=== PATIENT | female | born 1975 | race Caucasian/White ===

== ENCOUNTER 2019-10-03 12:57 | Outpatient (CLI) | payer BC, SELFPAY ==
--- NOTE | 2019-10-08 13:34 | WPDPFTINT ---
PFT Interpretation PFT Interpretation: DOS: 10/03/2019 REQUESTING: Timothy Strange MD REASON FOR TESTING: Asthma PULMONARY FUNCTION TESTS Results are reproducible. Spirometry: FEV1 is 110%, FVC 104%, and FEV1% is 81%, all normal. PGV83-82% is 100%. There is no significant change with bronchodilator. Lung volumes: tlc 101%. RV 88%. Normal RV/TLC. Airway resistance is 69%. Diffusion: DLCO is 84%, normal. Flow volume loop: Normal. IMPRESSION: Normal study. Lack of response to bronchodilator does not preclude use if clinically indicated. Carli Alfredo MD
== END 2019-10-03 12:58 | disposition home or self-care (01) ==
PROVIDERS: PCP Family Medicine; Visit Provider Allergy & Immunology
DX: J45.909 Unspecified asthma, uncomplicated (principal)
CPT/HCPCS: 94060; 94726; 94729

== ENCOUNTER 2021-08-01 08:34 | Outpatient (CLI) | payer OTHER, SELFPAY ==
[2021-08-01 10:20] LABS: Alanine Aminotransferase 15 U/L (4-35); Albumin Level 4.6 g/dL (3.5-5.1); Alkaline Phosphatase 70 U/L (38-126); Anion Gap 8 mmol/L (8-16); Aspartate Amino Transferase 24 U/L (14-36); Bilirubin,Total 0.4 mg/dL (0.2-1.3); Blood Urea Nitrogen 19 mg/dL (7-17); Calcium 9.3 mg/dL (8.4-10.2); Carbon Dioxide 27 mmol/L (22-30); Chloride 104 mmol/L (98-107); Cholesterol 188 mg/dL (0-200); Estimated Glomerular Filt Rate > 60; Glucose 78 mg/dL (65-110); HDL Direct 76 mg/dL; Potassium 3.8 mmol/L (3.4-5.0); Sodium 139 mmol/L (137-145); Triglycerides 104 mg/dL (<150)
[2021-08-01 10:31] LABS: LDL Cholesterol Direct 70 mg/dL
[2021-08-01 10:53] LABS: Free T4 Free Thyroxine 1.16 ng/mL (0.78-2.19)
[2021-08-01 11:26] LABS: Folic Acid 11.2 ng/mL (2.76->20)
[2021-08-04 13:45] LABS: Triiodothyronine T3 Free 2.8 pg/mL (2.3-4.2)
== END 2021-08-01 08:35 | disposition home or self-care (01) ==
LOC: ANHLAB 08:36
PROVIDERS: Visit Provider Internal Medicine Endocrinology, Diabetes & Metabolism
DX: E03.9 Hypothyroidism, unspecified (principal); E53.8 Deficiency of other specified B group vitamins
CPT/HCPCS: 36415; 80053; 80061; 82607; 82746; 84439; 84443; 84481

== ENCOUNTER 2021-11-06 09:53 | Emergency (ER) | payer OTHER, SELFPAY ==
[2021-11-06 10:11] VITALS: BP 122/91; PULSE 70; RESP 16; TEMP 36.6; O2SAT 100
--- NOTE | 2021-11-06 10:15 | ED.URI ---
HPI - URI/Sore Throat General Chief Complaint: Upper Respiratory Infection Stated Complaint: congestion, shortness of breath,fever Time Seen by Provider: 11/06/21 10:16 Source: patient and RN notes reviewed Mode of arrival: ambulatory Limitations: no limitations History of Present Illness HPI Narrative: 45-year-old female presented for complaint of sore throat for 2 weeks, and the last 2 days she has felt sinus congestion, pressure, headache, fatigue and fever of 101 yesterday. 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 She denies shortness of breath, wheezing, nausea, vomiting, diarrhea. She is taken Sudafed and Tylenol for symptoms. MD elicited complaint: cough Related Data Home Medications Medication Instructions Recorded Confirmed drospirenone (contraceptive) 4 mg 1 tablet PO DAILY 10/23/21 (28) tablet (Slynd) fexofenadine 60 mg tablet (Rita 60 mg PO Q12H 10/23/21 Allergy) mecobalamin (vitamin B12) 10,000 mcg IM 10/23/21 mcg solution for injection sertraline 100 mg tablet 100 mg PO DAILY 10/23/21 levothyroxine 50 mcg capsule mcg PO 11/06/21 (Tirosint) metronidazole 0.75 % vaginal gel ea vaginal DAILY 11/06/21 Allergies Allergy/AdvReac Type Severity Reaction Status Date / Time tramadol [[facility] Allergy Intermediate Rash Verified 11/06/21 10:20 levofloxacin AdvReac Intermediate Unknown Verified 11/06/21 10:20 lortab AdvReac Intermediate Unknown Uncoded 11/06/21 10:20 Review of Systems Review of Systems: CONSTITUTIONAL: Endorses malaise, chills, sweats, fever EYES: Denies visual changes, redness, or discharge ENT: Reports rhinorrhea, congestion, sinus pain, otalgia, sore throat CARDIOVASCULAR: Denies chest pain, palpitations, edema RESPIRATORY: Reports cough, post nasal drainage. Denies dyspnea GASTROINTESTINAL: Denies abdominal pain, nausea, vomiting, diarrhea SKIN: Denies rash or itching MUSCULOSKELETAL: Denies myalgia NEUROLOGIC: Reports headache PMFSH Past Medical History Medical History Allergies JAN positive Bilateral hand pain Generalized osteoarthritis of multiple sites Headache Hypertension Irritable bowel syndrome Thyroid disorder Surgical History Surgical History H/O bilateral oophorectomy H/O tubal ligation H/O: hysterectomy History of tonsillectomy Family History Family History Father Alcoholism Mother Depression Thyroid disorder Sibling Cerebrovascular accident Daughter Asthma Depression Grandparent Diabetes mellitus Grandparent Alcoholism Heart disease Social History Social History Smoking status: Former smoker Alcohol intake: never Exam Narrative: GENERAL: Ill-appearing, nontoxic EYES: conjunctivae clear ENT: Mucous membranes moist. TM pearly perrin with dull light reflex bilaterally; no tragal tenderness. Oropharynx normal without lesions or exudate, no drooling, no hoarseness, no trismus, uvula midline. CHEST: Clear to auscultation, breath sounds equal. No wheezing, rhonchi, rales, or stridor. HEART: Regular rate and rhythm. No murmur heard. SKIN: Warm, dry, no rash. NEURO: Alert and oriented x3. PSYCH: Normal mood and affect Course Course Emergency Course: Patient is aware of diagnosis, understands and agrees to treatment plan. Anticipatory guidance given. Patient agrees to follow-up as directed and is aware of reasons to seek care at the emergency department. Portions of this record may have been created with voice recognition software Level of Care: Express Care Visit Vital Signs Vital signs: Vital Signs Temperature 97.9 F 11/06/21 10:11 Pulse Rate 70 11/06/21 10:11 Respiratory Rate 16 11/06/21 10:11 Blood Pressure 122/91 H 11/06/21 10:11 Pulse Oxime
== END 2021-11-06 10:57 | disposition home or self-care (01) ==
PROVIDERS: Emergency Provider Nurse Practitioner Family; PCP Family Medicine
DX: J06.9 Acute upper respiratory infection, unspecified (principal); Z20.822 Contact with and (suspected) exposure to COVID-19; Z87.891 Personal history of nicotine dependence; I10 Essential (primary) hypertension; M19.90 Unspecified osteoarthritis, unspecified site; E07.9 Disorder of thyroid, unspecified
CPT/HCPCS: 87426; 99213; C9803; G0463

== ENCOUNTER 2021-11-20 12:31 | Outpatient (CLI) | payer OTHER, SELFPAY ==
--- NOTE | ~2021-11-20 | XR_ITS ---
XR foot RT standing 2V 11/20/2021 13:13 Indication: Polyarthritis Procedure: 2 views each foot COMPARISON: No prior studies for comparison. FINDINGS: Fracture, dislocation or subluxation is not identified. The soft tissues appear within norm al limits. No foreign bodies are identified. IMPRESSION: 1: No significant bone or joint abnormality. Reviewed, dictated and finalized at location A.
--- NOTE | ~2021-11-20 | XR_ITS ---
XR knee RT 3V 11/20/2021 13:13 INDICATION: Polyarthritis PROCEDURE: 3 views right knee COMPARISON: No prior studies for comparison. FINDINGS: Fracture, dislocation or subluxation is not identified. No significant joint effusion. The soft tissues appear within normal limits. No foreign bodies are identified. IMPRESSION: 1: No significant bone or joint abnormality. Reviewed, dictated and finalized at location A.
--- NOTE | ~2021-11-20 | XR_ITS ---
XR foot LT standing 2V 11/20/2021 13:13 Indication: Polyarthralgias Procedure: 2 views left foot Comparison: No prior studies for comparison. Findings: No fracture, subluxation or dislocation. No significant soft tissue abnormality. Lisfranc j oint intact. No foreign bodies. Impression: 1: No significant bone or joint abnormality. Reviewed, dictated and finalized at location A. Impression: 1: No significant bone or joint abnormality.
--- NOTE | ~2021-11-20 | XR_ITS ---
XR knee LT 3V 11/20/2021 13:13 INDICATION: Left knee pain PROCEDURE: 3 views left knee COMPARISON: No prior studies for comparison. FINDINGS: Fracture, dislocation or subluxation is not identified. No significant joint effusion. The soft tissues appear within normal limits. No foreign bodies are identified. IMPRESSION: 1: NO ACUTE BONE OR JOINT ABNORMALITY IDENTIFIED. Reviewed, dictated and finalized at location A.
--- NOTE | ~2021-11-20 | XR_ITS ---
XR sacroiliac joints min 3V 11/20/2021 13:13 Indication: Polyarthritis Procedure: 3 view sacroiliac joints COMPARISON: No prior studies for comparison. FINDINGS: Fracture, dislocation or subluxation is not identified. There is mild bilateral symmetric o steoarthritis of the sacroiliac joints. No significant joint effusion. The soft tissues appear within normal limits. No foreign bodies are identified. 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 Reviewed, dictated and finalized at location A.
--- NOTE | ~2021-11-20 | XR_ITS ---
XR hand BI arthritis min 3V 11/20/2021 13:12 Indication: Polyarthritis Procedure: 4 views each hand COMPARISON: No prior studies for comparison. FINDINGS: Fracture, dislocation or subluxation is not identified. The soft tissues appear within norm al limits. No foreign bodies are identified. IMPRESSION: 1: No significant bone or joint abnormality. Reviewed, dictated and finalized at location A.
== END 2021-11-20 12:32 | disposition home or self-care (01) ==
PROVIDERS: PCP Family Medicine; Visit Provider Internal Medicine
DX: M79.641 Pain in right hand (principal); M79.642 Pain in left hand; R76.8 Other specified abnormal immunological findings in serum; Z79.899 Other long term (current) drug therapy; Z71.89 Other specified counseling; M15.9 Polyosteoarthritis, unspecified; M53.3 Sacrococcygeal disorders, not elsewhere classified
CPT/HCPCS: 72202; 73130; 73562; 73620

== ENCOUNTER 2021-12-19 09:42 | Outpatient (CLI) | payer OTHER, SELFPAY ==
[2021-12-19 10:54] LABS: CRP < 0.5 mg/dL (<1.0)
[2021-12-19 11:29] LABS: Erythrocyte Sedimentation Rate 11 mm/hr (0-20)
[2021-12-19 11:51] LABS: Rheumatoid Factor < 8.6 IU/ML (<12)
[2021-12-19 12:11] LABS: Complement C3 122 mg/dL (88-165)
[2021-12-23 22:03] LABS: SS-A <1.0; SS-B <1.0
== END 2021-12-19 09:43 | disposition home or self-care (01) ==
LOC: ANHLAB 09:44
PROVIDERS: PCP Family Medicine; Visit Provider Internal Medicine
DX: M79.641 Pain in right hand (principal); M79.642 Pain in left hand; R76.8 Other specified abnormal immunological findings in serum; Z71.89 Other specified counseling; Z79.899 Other long term (current) drug therapy; M19.90 Unspecified osteoarthritis, unspecified site
CPT/HCPCS: 36415; 85652; 86140; 86160; 86235; 86430

== ENCOUNTER 2022-01-15 12:16 | Outpatient (CLI) | payer OTHER, SELFPAY ==
[2022-01-15 12:50] LABS: Basophils Percent Auto 0.4 % (0.2-1.2); Eosinophils Absolute Auto 0.1 K/mm3 (0-0.3); Eosinophils Percent Auto 1.9 % (0-4.4); Hematocrit 37.1 % (37.0-47.0); Hemoglobin 11.9 g/dL (12.0-15.0); Immature Granulocyte Absolute 0.02 K/mm3 (0.00-0.031); Immature Granulocyte Percent A 0.3 % (0-0.5); Lymphocytes Absolute Auto 1.78 K/mm3 (0.9-3.2); Lymphocytes Percent Auto 25.9 % (18.3-44.2); Mean Corpuscular HGB Conc 32.1 g/dl (32-36); Mean Corpuscular Hemoglobin 27.8 pg (26-34); Mean Corpuscular Volume 86.7 fl (80-100); Mean Platelet Volume 10.1 fl (7.4-10.4); Monocytes Absolute Auto 0.5 K/mm3 (0.1-0.6); Monocytes Percent Auto 7.7 % (2.6-8.5); Neutrophils Absolute Auto 4.4 K/mm3 (1.3-6.7); Neutrophils Percent Auto 63.8 % (45.5-73.1); Platelet Count Result 242 k/mm3 (150-375); Red Blood Count 4.28 M/mm3 (4.2-5.4); Red Cell Distribution Width 12.5 % (11.5-14.5); White Blood Count 6.9 K/mm3 (4.5-10.0)
[2022-01-15 13:10] LABS: Alanine Aminotransferase 15 U/L (6-35); Albumin Level 4.5 g/dL (3.5-5.1); Alkaline Phosphatase 66 U/L (38-126); Anion Gap 11 mmol/L (8-16); Aspartate Amino Transferase 24 U/L (14-36); Bilirubin,Total 0.3 mg/dL (0.2-1.3); Blood Urea Nitrogen 15 mg/dL (7-17); Calcium 8.9 mg/dL (8.4-10.2); Carbon Dioxide 25 mmol/L (22-30); Chloride 102 mmol/L (98-107); Estimated Glomerular Filt Rate > 60; Glucose 96 mg/dL (65-110); Potassium 3.6 mmol/L (3.4-5.0); Sodium 138 mmol/L (137-145)
[2022-01-15 16:29] LABS: Free T4 Free Thyroxine 1.21 ng/mL (0.78-2.19); Vitamin D 25 Hydroxy 51.9 ng/mL
[2022-01-17 15:20] LABS: FSH 2.6 mIU/mL (***)
[2022-01-18 04:35] LABS: Sex Hormone Binding Globulin 148 nmol/L (17-124); Thyroid Peroxidase Antibodies 35 IU/mL (<9)
[2022-01-22 22:12] LABS: Estradiol, Ultrasensitive 52 pg/mL
== END 2022-01-15 12:17 | disposition home or self-care (01) ==
PROVIDERS: PCP Family Medicine; Visit Provider Obstetrics & Gynecology
DX: E07.9 Disorder of thyroid, unspecified (principal); N95.1 Menopausal and female climacteric states; G47.00 Insomnia, unspecified
CPT/HCPCS: 36415; 80053; 82306; 82607; 82670; 83001; 84270; 84439; 84443; 85025; 86376

== ENCOUNTER 2022-01-25 17:23 | Outpatient (CLI) | payer OTHER, SELFPAY ==
[2022-01-27 12:55] LABS: Triiodothyronine T3 Free 2.6 pg/mL (2.3-4.2)
== END 2022-01-25 17:24 | disposition home or self-care (01) ==
LOC: ANHLAB 17:25
PROVIDERS: PCP Family Medicine; Visit Provider Obstetrics & Gynecology
DX: E07.9 Disorder of thyroid, unspecified (principal); G47.00 Insomnia, unspecified; N95.1 Menopausal and female climacteric states
CPT/HCPCS: 36415; 84481

== ENCOUNTER 2022-03-05 12:22 | Outpatient (CLI) | payer OTHER, SELFPAY ==
[2022-03-10 11:47] LABS: Testosterone Total 271 ng/dL (2-45)
[2022-03-10 20:54] LABS: FSH 38.9 mIU/mL (***)
[2022-03-13 21:27] LABS: Estradiol, Ultrasensitive 48 pg/mL
== END 2022-03-05 12:23 | disposition home or self-care (01) ==
LOC: ANHLAB 12:23
PROVIDERS: PCP Family Medicine; Visit Provider Obstetrics & Gynecology
DX: Z79.890 Hormone replacement therapy (principal)
CPT/HCPCS: 36415; 82670; 83001; 84403

== ENCOUNTER 2022-03-27 13:08 | Outpatient (CLI) | payer OTHER, SELFPAY ==
[2022-03-27 13:56] LABS: Alanine Aminotransferase 28 U/L (6-35); Alkaline Phosphatase 69 U/L (38-126); Anion Gap 9 mmol/L (8-16); Aspartate Amino Transferase 31 U/L (14-36); Bilirubin,Total 0.5 mg/dL (0.2-1.3); Blood Urea Nitrogen 16 mg/dL (7-17); Calcium 9.7 mg/dL (8.4-10.2); Carbon Dioxide 29 mmol/L (22-30); Chloride 101 mmol/L (98-107); Estimated Glomerular Filt Rate > 60; Glucose 87 mg/dL (65-110); Sodium 139 mmol/L (137-145)
[2022-03-27 14:13] LABS: Free T4 Free Thyroxine 1.15 ng/mL (0.78-2.19)
[2022-03-27 14:26] LABS: Thyroid Stimulating Hormone 0.023 uIU/mL (0.465-4.680)
[2022-03-31 11:20] LABS: CRP, High Sensitivity 3.4 mg/L (***)
[2022-03-31 11:27] LABS: T3 Reverse 12 ng/dL (8-25)
[2022-04-02 20:02] LABS: Estradiol, Ultrasensitive 133 pg/mL
== END 2022-03-27 13:09 | disposition home or self-care (01) ==
PROVIDERS: PCP Family Medicine; Visit Provider Obstetrics & Gynecology
DX: R53.83 Other fatigue (principal)
CPT/HCPCS: 36415; 80053; 82670; 82728; 83001; 84439; 84443; 84482; 86141

== ENCOUNTER 2022-07-20 15:09 | Emergency (ER) | payer OTHER, SELFPAY ==
[2022-07-20 15:11] VITALS: BP 167/92; PULSE 126; RESP 16; TEMP 36.3; O2SAT 100
[2022-07-20 15:23] LABS: Basophils Percent Auto 0.3 % (0.2-1.2); Eosinophils Percent Auto 0.4 % (0-4.4); Hematocrit 37.8 % (37.0-47.0); Hemoglobin 12.4 g/dL (12.0-15.0); Immature Granulocyte Absolute 0.02 K/mm3 (0.00-0.031); Immature Granulocyte Percent A 0.3 % (0-0.5); Lymphocytes Absolute Auto 1.72 K/mm3 (0.9-3.2); Lymphocytes Percent Auto 25.1 % (18.3-44.2); Mean Corpuscular HGB Conc 32.8 g/dl (32-36); Mean Corpuscular Hemoglobin 26.4 pg (26-34); Mean Corpuscular Volume 80.4 fl (80-100); Mean Platelet Volume 10.8 fl (7.4-10.4); Monocytes Absolute Auto 0.5 K/mm3 (0.1-0.6); Monocytes Percent Auto 7.6 % (2.6-8.5); Neutrophils Absolute Auto 4.5 K/mm3 (1.3-6.7); Neutrophils Percent Auto 66.3 % (45.5-73.1); Platelet Count Result 294 k/mm3 (150-375); Red Cell Distribution Width 14.4 % (11.5-14.5); White Blood Count 6.9 K/mm3 (4.5-10.0)
[2022-07-20 15:41] LABS: Appearance Urine Cloudy (Clear); Bacteria Urine Rare /hpf; Bilirubin Urine 1+ (Negative); Blood Urine Negative (Negative); Color Urine Dark Yellow (Yellow); Glucose Urine UA Negative (Negative); Ketones Urine 3+ mg/dL (Negative); Leukocyte Esterase Ur Negative LEU/UL (Negative); Nitrate Urine Negative (Negative); Non Pathogenic Casts 0-2; Protein Urine Trace mg/dL (Negative); RBC Urine 0-2 /hpf (0-2); Specific Grav Ur 1.024 (1.001-1.035); Squamous Epithelial Cell Urine Moderate /hpf (Few); Urobilinogen Urine 0.2 mg/dL (<2.0); WBC Urine 0-5 /hpf
[2022-07-20 15:47] LABS: Add Urine Microscopic? YES
[2022-07-20 16:24] LABS: Alanine Aminotransferase 39 U/L (6-35); Alkaline Phosphatase 79 U/L (38-126); Anion Gap 10 mmol/L (8-16); Aspartate Amino Transferase 45 U/L (14-36); Bilirubin,Total 0.6 mg/dL (0.2-1.3); Blood Urea Nitrogen 14 mg/dL (7-17); Calcium 9.6 mg/dL (8.4-10.2); Carbon Dioxide 26 mmol/L (22-30); Chloride 101 mmol/L (98-107); Estimated CRCL calculation 99 ml/min; Estimated Glomerular Filt Rate > 60; Glucose 108 mg/dL (65-110); Lipase 60 U/L (23-300); Potassium 4.8 mmol/L (3.4-5.0); Sodium 137 mmol/L (137-145)
[2022-07-20 18:06] VITALS: BP 181/93; PULSE 111; RESP 21; O2SAT 100
--- NOTE | 2022-07-20 18:13 | ED.NAVMDI ---
HPI - Nausea/Vomiting/Diarrhea General Chief complaint: Nausea/Vomiting/Diarrhea Stated complaint: n/v x 2 days Time Seen by Provider: 07/20/22 18:04 History of Present Illness HPI Narrative: Patient is a 46-year-old female with a history of RA her for evaluation of nausea, vomiting for the past 2 days. Patient states she has been unable to tolerate any p.o. and has had numerous episodes of vomiting nonbloody/nonbilious emesis. She denies any new or suspicious foods. She denies any sick contacts. She has had no fevers, abdominal pain, diarrhea, constipation. No surgeries on her abdomen. She recently started sulfasalazine for vomiting prior to onset of vomiting. Related Data Home Medications Medication Instructions Recorded Confirmed fexofenadine 60 mg tablet (Rita 60 mg PO Q12H 10/23/21 01/08/22 Allergy) mecobalamin (vitamin B12) 10,000 10,000 mcg IM WEEKLY 10/23/21 01/08/22 mcg solution for injection levothyroxine 50 mcg capsule 50 mcg PO DAILY 11/06/21 01/08/22 (Tirosint) Allergies Allergy/AdvReac Type Severity Reaction Status Date / Time tramadol [From Ultram] Allergy Intermediate Rash Verified 07/20/22 18:13 levofloxacin AdvReac Intermediate Unknown Verified 07/20/22 18:13 lortab AdvReac Intermediate Unknown Uncoded 07/20/22 18:13 Review of Systems Review of Systems: Gen.: Denies fevers or chills Eyes: Denies eye pain or visual change ENT: Denies congestion Respiratory: Denies shortness of breath or cough CV: Denies chest pain or palpitations GI: Reports nausea and vomiting denies burning, urgency, frequency or hematuria Musculoskeletal: Denies back pain or muscle pain Neuro: Denies numbness, tingling, weakness or focal weakness Skin: Denies rash Except as documented, all other systems reviewed and negative PMFSH Past Medical History Medical History Allergies JAN positive Bilateral hand pain Fatigue Generalized osteoarthritis of multiple sites Headache Hormone replacement therapy Hypertension Irritable bowel syndrome Thyroid disorder Surgical History Surgical History H/O bilateral oophorectomy H/O tubal ligation H/O: hysterectomy History of tonsillectomy Family History Family History Father Alcoholism Mother Depression Thyroid disorder Sibling Cerebrovascular accident Daughter Asthma Depression Grandparent Diabetes mellitus Grandparent Alcoholism Heart disease Social History Social History Smoking status: Former smoker Alcohol intake: never Exam Narrative: APPEARANCE: Well appearing, no pain in distress, well-nourished. Head: Normocephalic and atraumatic. EYES: PERRLA/EOMI, conjunctivae clear NOSE: No nasal drainage EARS: External ear normal in appearance THROAT: Oropharynx is clear. Mucous membranes are moist. NECK: Supple. No adenopathy, no masses. RESPIRATORY: Airway patent, respirations nonlabored. Clear to auscultation bilaterally, no rales, rhonchi, wheezing. CARDIOVASCULAR: Regular rate and rhythm without murmurs, rubs, or gallops. ABDOMINAL: Normoactive bowel sounds. Soft, nontender, nondistended. No rebound tenderness or guarding. MUSCULOSKELETAL: Extremities are warm and well-perfused. Moves all extremities well. No edema. NEURO: Normal speech. No focal neurologic deficits. SKIN: Skin is warm and dry. No rashes. PSYCHIATRIC: Normal affect/mood.. Course Vital Signs Vital signs: Vital Signs Temperature 97.4 F L 07/20/22 15:11 Pulse Rate 126 H 07/20/22 15:11 Respiratory Rate 16 07/20/22 15:11 Blood Pressure 167/92 H 07/20/22 15:11 Pulse Oximetry 100 07/20/22 15:11 Temperature 97.4 F L 07/20/22 15:11 Pulse Rate 88 07/20/22 20:52 Respiratory Rate 20 07/20/22 20:52 Blood Pressure 142/
[2022-07-20] MEDS: LACTATED RINGERS 1,000 ML 999 ML IV CONT ×2 (18:21→19:33)
[2022-07-20] MEDS: ONDANSETRON INJ 4 MG/2 ML VIAL IV PUSH (18:21)
[2022-07-20] MEDS: FAMOTIDINE 20 MG/2 ML VIAL IV PUSH (18:21)
[2022-07-20 19:06] LABS: Pregnancy On Board Control Positive; Urine Pregnancy Test Negative
[2022-07-20 19:12] LABS: SARS-CoV-2 RNA PCR Negative
[2022-07-20] MEDS: METOCLOPRAMIDE HCL INJ 10 MG/2 ML VIAL IV PUSH (20:50)
[2022-07-20] MEDS: diphenhydrAMINE HCl INJ 50 MG/ML VIAL 25 MG IV PUSH (20:50)
[2022-07-20 20:52] VITALS: BP 142/85; PULSE 88; RESP 20; O2SAT 100
== END 2022-07-20 21:00 | disposition home or self-care (01) ==
PROVIDERS: Emergency Medicine; Emergency Provider Physician Assistant; PCP Family Medicine
DX: K52.9 Noninfective gastroenteritis and colitis, unspecified (principal); Z20.822 Contact with and (suspected) exposure to COVID-19; I10 Essential (primary) hypertension; K58.9 Irritable bowel syndrome, unspecified; E07.9 Disorder of thyroid, unspecified; M06.9 Rheumatoid arthritis, unspecified; M19.90 Unspecified osteoarthritis, unspecified site; Z90.722 Acquired absence of ovaries, bilateral; Z90.710 Acquired absence of both cervix and uterus; Z87.891 Personal history of nicotine dependence
CPT/HCPCS: 36415; 80053; 81001; 81025; 83690; 85025; 96361; 96374; 96375; 99284; J1200; J2405; J2765; J7120; U0003; U0005

== ENCOUNTER 2022-07-23 15:02 | Outpatient (CLI) | payer OTHER, SELFPAY ==
--- NOTE | ~2022-07-23 | US_ITS ---
EXAMINATION: US soft tissue UE LT DATE: 07/23/2022 16:00 INDICATION: Ankylosing spondylitis of multiple sites. Rheumatoid arthritis. Left hand pain. TECHNIQUE: Multiple grayscale and Doppler ultrasound images of the left hand were obtained. COMPARISON: Left hand radiographs 11/20/2021 FINDINGS: There is a small effusion of left third metacarpophalangeal joint. No abnormal mass. IMPRESSION: 1. Small effusion of left third metacarpophalangeal joint. Reviewed, dictated and finalized at location A.
--- NOTE | ~2022-07-23 | US_ITS ---
EXAMINATION: US soft tissue UE RT DATE: 07/23/2022 16:00 INDICATION: Ankylosing spondylitis of multiple sites. Rheumatoid arthritis. Right hand pain. TECHNIQUE: Multiple grayscale and Doppler ultrasound images of the right hand were obtained. COMPARISON: Right hand radiographs 11/20/2021 FINDINGS: There is no abnormal mass or joint effusion. IMPRESSION: 1. No abnormal mass or joint effusion. Reviewed, dictated and finalized at location A.
== END 2022-07-23 15:03 | disposition home or self-care (01) ==
PROVIDERS: PCP Family Medicine; Visit Provider Internal Medicine
DX: M45.0 Ankylosing spondylitis of multiple sites in spine (principal); M45.1 Ankylosing spondylitis of occipito-atlanto-axial region; M06.09 Rheumatoid arthritis without rheumatoid factor, multiple sites; M25.442 Effusion, left hand
CPT/HCPCS: 76882

== ENCOUNTER 2022-10-04 16:49 | Outpatient (CLI) | payer OTHER, SELFPAY ==
--- NOTE | ~2022-10-04 | XR_ITS ---
XR shoulder RT min 2V 10/04/2022 17:12 Indication: Right shoulder pain Procedure: 4 views right shoulder Comparison: No prior studies for comparison. Findings: There is anatomic alignment. No fracture, subluxation or dislocation. No joint effusion. No foreign bodies. Impression: 1: No significant bone or joint abnormality. Reviewed, dictated and finalized at location L. Impression: 1: No significant bone or joint abnormality.
--- NOTE | ~2022-10-04 | XR_ITS ---
XR shoulder LT min 2V 10/04/2022 17:12 Indication: Left shoulder pain Procedure: 4 views left shoulder Comparison: No prior studies for comparison. Findings: There is anatomic alignment. No fracture, subluxation or dislocation. No joint space narrow ing. No erosive changes. No soft tissue abnormality. No foreign bodies. Impression: 1: No significant bone or joint abnormality Reviewed, dictated and finalized at location L. Impression: 1: No significant bone or joint abnormality
== END 2022-10-04 16:50 | disposition home or self-care (01) ==
LOC: ANHIMG 16:52
PROVIDERS: PCP Family Medicine; Visit Provider Orthopaedic Surgery
DX: M25.511 Pain in right shoulder (principal); M25.512 Pain in left shoulder
CPT/HCPCS: 73030

== ENCOUNTER 2022-10-30 09:39 | Outpatient (CLI) | payer OTHER, SELFPAY ==
[2022-10-30 11:05] LABS: Free T4 Free Thyroxine 1.21 ng/mL (0.78-2.19)
[2022-10-30 11:13] LABS: Thyroid Stimulating Hormone < 0.015 uIU/mL (0.465-4.680)
[2022-11-03 11:06] LABS: Testosterone Free 26.8 pg/mL (0.1-6.4); Testosterone Total 367 ng/dL (2-45)
[2022-11-04 05:26] LABS: FSH 10.5 mIU/mL (***); Triiodothyronine T3 Free 3.4 pg/mL (2.3-4.2)
[2022-11-06 21:06] LABS: Estradiol, Ultrasensitive 140 pg/mL
== END 2022-10-30 09:40 | disposition home or self-care (01) ==
LOC: ANHLAB 09:42
PROVIDERS: PCP Family Medicine; Visit Provider Physical Medicine & Rehabilitation
DX: R53.82 Chronic fatigue, unspecified (principal); Z79.890 Hormone replacement therapy
CPT/HCPCS: 36415; 82670; 83001; 84402; 84403; 84439; 84443; 84481

== ENCOUNTER 2022-12-15 17:15 | Outpatient (RCR) | payer OTHER, SELFPAY ==
--- NOTE | 2022-11-18 17:24 | PTOPEVAL1 ---
Assessment and note entered by Da Moreno Evaluation Information Assessment Status Evaluation Diagnosis bilateral shoulder pain Subjective Information Pt. reports that her shoulder pain began 6-7 months ago. she recalls no incident just progressing pain. Pt. describes pain in the lateral brachial region of both the left and right u.e. She reports she is right hand dominant but the left hand is worse. She states that she is currently waking 4-5x/night due to pain. She cannot sleep on her side due to pain. She report dressing is painful due to shoulder pain. She reports that lifting any object will increase her shoulder pain. she describes most pain with reaching away from her body. She recalls no complication prior to the past 6-7 months. Pt. reports that she does have hx of RA and is currently taking medication for RA. she is also using mm. relaxor and gabapentin. She also has hx of Graves Disease, anxiety and depression. She reports that her goal for therapy is to decrease her pain. Reported Pain Level Pain Score 6,8: Self Report Assessment PT Clinical Summary Pt. is a 46 year old female who enters the clinic with bilateral shoulder pain. She presents with indication of impingement syndrome on both right and left and has Hx of RA. She currently presents with impaired postural awareness, pain, impaired shoulder mobility and impaired strength. Continued skilled PT is indicated in order to improve these areas to allow the pt. to be able to complete all IADL's without limitation. Plan of Care Interventions Electrical Stimulation,Hot Pack/Cold Pack,Manual Therapy,Neuro Re-education,Patient/Caregiver Educati,Therapeutic Activities,Therapeutic Exercise PT Services Indicated Yes Treatment Frequency and 2x/week x 8 visits Duration These treatments will address the objective and functional deficits as defined above. The patient will be advanced safely and appropriately in order for the patient to progress towards his/her prior level of function. Additional exercises will be introduced and as well as a comprehensive home exercise program upon discharge, if needed, ?to ensure carryover of functional gains achieved in the clinic. This treatment plan has been reviewed and agreement upon by the patient.
--- NOTE | 2022-11-18 17:25 | OPREHPOC ---
Outpatient Therapy Plan of Care This is a Multidisciplinary Plan of Care that may contain components documented by all disciplines (PT, OT, and ST.) PT Problem 1 PT Problem #1 Knowledge Deficit PT Goal 1 Goal Independent with a HEP addresisng strength and posutral awareness. Target Visit 2 PT Problem 2 PT Problem #2 Pain PT Goal 1 Goal Reduce pain to 5/10 at worst with performance of all IADL's and report improved sleep habits. Target Visit 8 PT Problem 3 PT Problem #3 Impaired Range of Motion PT Goal 1 Goal Increase bilateral flexion AROM at the shoulder joints to 160 degrees to improve ability to complete overhead ADL's including dressing and grooming. Target Visit 8 PT Problem 4 PT Problem #4 Impaired Strength PT Goal 1 Goal Pt. to demonstrate 4plus/5 bilateral shoulder strength or greater to improve postural awarness with all IADL's. Target Visit 8
--- NOTE | 2022-12-20 16:26 | PCPTNOTE ---
Pt. canceled 12/20 and 12/22 appointments as she is getting into orthopedic MD as discussed at previous session.
--- NOTE | 2022-12-22 12:42 | PTOPDC ---
Assessment and note entered by Da Moreno Evaluation Information Assessment Status Discharge - Pt Not Present Diagnosis bilateral shoulder pain Assessment PT Clinical Summary Mrs. Merrill contacted the clinic on 12/20/22 via telephone. She stated that she would like to cancel her remaining appointments and had scheduled a visit with an orthopedic doctor to address her shoulder pain. She will be discharged from our care. Refer to last pt. daily note for discharge status. Plan of Care PT Services Indicated Yes
== END 2022-12-23 14:02 | disposition home or self-care (01) ==
LOC: ANHPT 17:15
PROVIDERS: PCP Family Medicine; Visit Provider Nurse Practitioner
DX: M25.511 Pain in right shoulder (principal); M25.512 Pain in left shoulder
CPT/HCPCS: 97014; 97110; 97140; 97161; G0283

== ENCOUNTER 2023-01-14 12:12 | Outpatient (CLI) | payer OTHER, SELFPAY ==
[2023-01-14 12:46] LABS: Basophils Percent Auto 0.3 % (0.2-1.2); Eosinophils Absolute Auto 0.2 K/mm3 (0-0.3); Eosinophils Percent Auto 3.4 % (0-4.4); Hematocrit 38.9 % (37.0-47.0); Hemoglobin 12.6 g/dL (12.0-15.0); Immature Granulocyte Absolute 0.02 K/mm3 (0.00-0.031); Immature Granulocyte Percent A 0.3 % (0-0.5); Lymphocytes Absolute Auto 2.08 K/mm3 (0.9-3.2); Lymphocytes Percent Auto 35.3 % (18.3-44.2); Mean Corpuscular HGB Conc 32.4 g/dl (32-36); Mean Corpuscular Hemoglobin 27.8 pg (26-34); Mean Corpuscular Volume 85.9 fl (80-100); Mean Platelet Volume 10.5 fl (7.4-10.4); Monocytes Absolute Auto 0.5 K/mm3 (0.1-0.6); Neutrophils Percent Auto 51.7 % (45.5-73.1); Platelet Count Result 235 k/mm3 (150-375); Red Blood Count 4.53 M/mm3 (4.2-5.4); Red Cell Distribution Width 12.4 % (11.5-14.5); White Blood Count 5.9 K/mm3 (4.5-10.0)
[2023-01-14 12:50] LABS: Alanine Aminotransferase 30 U/L (6-35); Alkaline Phosphatase 87 U/L (38-126); Anion Gap 8 mmol/L (8-16); Aspartate Amino Transferase 30 U/L (14-36); Bilirubin,Total 0.4 mg/dL (0.2-1.3); Blood Urea Nitrogen 13 mg/dL (7-17); Calcium 9.3 mg/dL (8.4-10.2); Carbon Dioxide 27 mmol/L (22-30); Chloride 104 mmol/L (98-107); Cholesterol 207 mg/dL (0-200); Estimated Glomerular Filt Rate > 60; Glucose 77 mg/dL (65-110); HDL Direct 68 mg/dL; Potassium 3.8 mmol/L (3.4-5.0); Sodium 139 mmol/L (137-145); Triglycerides 139 mg/dL (<150)
[2023-01-14 13:01] LABS: LDL Cholesterol Direct 97 mg/dL
[2023-01-14 13:20] LABS: Thyroid Stimulating Hormone < 0.015 uIU/mL (0.465-4.680)
[2023-01-14 13:23] LABS: Free T4 Free Thyroxine 1.33 ng/mL (0.78-2.19); Vitamin D 25 Hydroxy 46.3 ng/mL
[2023-01-14 13:30] LABS: Iron 74 ug/dL (37-170)
[2023-01-14 13:38] LABS: Percent Iron Saturation 18 % (20-50)
[2023-01-18 18:49] LABS: Testosterone Free 13.3 pg/mL (0.1-6.4); Testosterone Total 215 ng/dL (2-45)
[2023-01-19 06:38] LABS: FSH 13.8 mIU/mL (***); Triiodothyronine T3 Free 2.9 pg/mL (2.3-4.2)
[2023-01-21 20:06] LABS: Estradiol, Ultrasensitive 98 pg/mL
== END 2023-01-14 12:13 | disposition home or self-care (01) ==
LOC: ANHLAB 12:14
PROVIDERS: PCP Family Medicine; Visit Provider Physical Medicine & Rehabilitation
DX: R53.83 Other fatigue (principal)
CPT/HCPCS: 36415; 80053; 80061; 82306; 82607; 82670; 83001; 83540; 83550; 84402; 84403; 84439; 84443; 84481; 85025

== ENCOUNTER 2023-02-10 12:24 | Outpatient (CLI) | payer OTHER, SELFPAY ==
--- NOTE | ~2023-02-10 | MR_ITS ---
MRI of the left shoulder Technique: Axial proton-density fat-sat images, coronal proton density fat-sat and T2 fat-sat images, and sagittal T1-weighted and T2 fat-sat images were acquired. Clinical History: Pain Findings: There is no significant degenerative change of the AC joint. Coracoclavicular, coracoacromi al, and coracohumeral ligaments are intact. Supraspinatus and infraspinatus tendons are intact, without partial or full-thickness tear. Subscapul renzo tendon is intact, with minimal tendinosis. Tendon of the long head of the biceps is intact. Probable superior labral tear identified. Inferior glenohumeral ligament is intact. No effusion or degenerative change of the glenohumeral join t. No fluid distention of the subacromial/subdeltoid bursa. No muscle atrophy or edema. Impression: Probable superior labral tear. Reviewed, dictated and finalized at [facility]. Impression: Probable superior labral tear.
== END 2023-02-10 12:25 | disposition home or self-care (01) ==
PROVIDERS: PCP Family Medicine; Visit Provider Nurse Practitioner
DX: M25.512 Pain in left shoulder (principal)
CPT/HCPCS: 73221

== ENCOUNTER 2023-02-11 13:39 | Outpatient (CLI) | payer OTHER, SELFPAY ==
--- NOTE | ~2023-02-11 | MM_ITS ---
EXAMINATION: MM screening [facility] BI w timothy HISTORY: Screening TECHNIQUE: Craniocaudal and mediolateral oblique 3-D tomosynthesis images were obtained and synthetic 2-D images were generated. CAD analysis was submitted and interpreted. COMPARISON: Comparison to multiple prior studies sequentially, with oldest reviewed study dated 01/24. BREAST PARENCHYMAL COMPOSITION: There are scattered areas of fibroglandular density. FINDINGS: There is no evidence of suspicious mass, calcification, or architectural distortion to sugg est malignancy in either breast. There has been no suspicious interval change. IMPRESSION: 1. No mammographic evidence of malignancy. 2. Recommend routine screening mammography in one year. BI-RADS Category 1: Negative Reviewed, dictated and finalized at location A.
== END 2023-02-11 13:40 | disposition home or self-care (01) ==
LOC: ANHIMG 13:39
PROVIDERS: PCP Family Medicine; Visit Provider Obstetrics & Gynecology
DX: Z12.31 Encounter for screening mammogram for malignant neoplasm of breast (principal)
CPT/HCPCS: 77063; 77067

== ENCOUNTER 2023-02-21 13:26 | Outpatient (CLI) | payer OTHER, SELFPAY ==
--- NOTE | ~2023-02-21 | XR_ITS ---
EXAMINATION: XR lg joint inject/asp w image DATE: 02/21/2023 14:36 INDICATION: Left shoulder pain TECHNIQUE: A time-out was performed to verify the patient's name, date of , and procedure to b e performed. The procedure including the risks, benefits, and alternatives was discussed with the pat ient. Risks discussed included bleeding and infection. The patient understood the risks and agreed to proceed. The skin overlying the rotator cuff interval of the left glenohumeral joint was prepped an d draped in usual sterile fashion. Anesthetic was administered with 1% lidocaine subcutaneously. A 22 G needle was advanced under fluoroscopic guidance into the joint. Injection of 1 mL of Omnipaque 240 confirmed intra-articular position of the needle. Subsequently, injectate consisting of 3.5 mL o f a 4:3 mixture of 1% lidocaine:10 mg/mL Kenalog for a total dosage of 15 mg Kenalog was instilled. W ashout of contrast was seen confirming intra-articular administration. The needle was removed and the entry site was cleaned and dressed. There were no immediate complications. Fluoroscopy exposure renetta e was 0.1 minutes. The total number of images was 2. FINDINGS: Real-time fluoroscopy demonstrates the needle in the left glenohumeral joint. Patient's sergio n prior to procedure:10/02. Patient's pain following the procedure: 08/02. IMPRESSION: 1. Successful left glenohumeral joint injection of local anesthetic and steroid with decrease in the patient's presenting pain. Reviewed, dictated and finalized at location A.
== END 2023-02-21 13:27 | disposition home or self-care (01) ==
PROVIDERS: PCP Family Medicine; Visit Provider Orthopaedic Surgery
DX: M25.512 Pain in left shoulder (principal)
CPT/HCPCS: 20610; 77002; J2001; J3301; Q9966

== ENCOUNTER 2023-03-24 16:23 | Outpatient (CLI) | payer OTHER, SELFPAY ==
--- NOTE | ~2023-03-24 | US_ITS ---
EXAMINATION: US thyroid DATE: 03/24/2023 17:06 INDICATION: Dysphagia TECHNIQUE: Multiple ultrasound images of the thyroid were obtained. COMPARISON: None. FINDINGS: The right thyroid lobe measures 3.7 x 0.9 x 0.9 cm. The left thyroid lobe measures 2.3 x 0.7 x 1.1 c m. Thyroid isthmus measures 1.6 mm in thickness. No discrete nodules identified. There is normal echo texture, echogenicity and vascular flow throughout the thyroid gland. IMPRESSION: 1. Normal thyroid ultrasound. Reviewed, dictated and finalized at location A. T DRIVER
== END 2023-03-24 16:24 | disposition home or self-care (01) ==
LOC: ANHIMG 16:26
PROVIDERS: PCP Family Medicine; Visit Provider Physician Assistant Medical
DX: R13.10 Dysphagia, unspecified (principal)
CPT/HCPCS: 76536

== ENCOUNTER 2023-03-25 15:30 | Outpatient (RCR) | payer OTHER, SELFPAY ==
--- NOTE | 2023-02-17 08:04 | PTOPEVAL1 ---
Assessment and note entered by Da Moreno Evaluation Information Assessment Status Evaluation Diagnosis bilateral adhesive capsulities of the shoulders Onset 05/20/22 Subjective Information Pt. reports she has experienced 10 months of bilateral shoulder pain. She underwent recent MRI that revealed a small labral tear on the left. She reports that her right shoulder has been improving recently, but the left shoulder has not gotten any better. She reports that she cannot reach behind her back and overhead with the left shoulder. She states that she currently has no pain in the right shoulder and shoulder pain is only notable with occasional overhead reaching. She has trouble attempting to lift anything away from her body. Reaching into overhead cabinets is painful and difficult. She reports trouble sleeping at night is difficult due to pain when rolling onto the left shoulder. She reports that her goal is to decrease her shoulder pain. Reported Pain Level Pain Score 2,6: Self Report Assessment PT Clinical Summary Pt. is a 47 year old female who enters the clinic with right and left shoulder adhesive capsulitis. she presents with impaired postural awareness, impaired bilateral shoulder passive and active ROM , impaired proximal u.e. strength and pain. Continued skilled PT is indicated in order to improve these areas to allow the pt. to be able to complete all IADL's with improved comfort and efficency. Plan of Care Interventions Electrical Stimulation,Hot Pack/Cold Pack,Manual Therapy,Neuro Re-education,Patient/Caregiver Educati,Therapeutic Activities,Therapeutic Exercise PT Services Indicated Yes Treatment Frequency and 2x/week x 10 visits Duration These treatments will address the objective and functional deficits as defined above. The patient will be advanced safely and appropriately in order for the patient to progress towards his/her prior level of function. Additional exercises will be introduced and as well as a comprehensive home exercise program upon discharge, if needed, ?to ensure carryover of functional gains achieved in the clinic. This treatment plan has been reviewed and agreement upon by the patient.
--- NOTE | 2023-02-17 08:05 | OPREHPOC ---
Outpatient Therapy Plan of Care This is a Multidisciplinary Plan of Care that may contain components documented by all disciplines (PT, OT, and ST.) PT Problem 1 PT Problem #1 Knowledge Deficit PT Goal 1 Goal Independent with a HEP addressing strength and mobility pentecostal. Target Visit 2 PT Problem 2 PT Problem #2 Pain PT Goal 1 Goal Reduce pain to 3/10 at worst with all overhead reaching. Target Visit 10 PT Problem 3 PT Problem #3 Impaired Range of Motion PT Goal 1 Goal -Pt. will achieve 165 degrees of bilateral active shoulder flexion -Pt. will be able to reach to the upper thoracic region with combined ER and flexion of the bilateral shoulder joints. -Pt. will reach to the lower thoracic region with combined IR and flexion of the bilateral shoulder joints. PT Problem 4 PT Problem #4 Impaired Functional Mobil PT Goal 1 Goal Pt. will improve her Quick Dash score to less than 30% limitation indicating improved comfort and function. Target Visit 10 PT Problem 5 PT Problem #5 Impaired Strength PT Goal 1 Goal Pt. will present with 4+/5 or greater gross proximal right and left u.e. strength. Target Visit 10
--- NOTE | 2023-03-16 10:23 | PCPTNOTE ---
Pt. canceled 03/16/23 appointment noting that she was sick.
--- NOTE | 2023-03-25 16:07 | PTOPDC ---
Assessment and note entered by Nat Garnica, PT Evaluation Information Assessment Status Discharge Diagnosis bilateral adhesive capsulities of the shoulders Onset 05/20/22 Subjective Information feeling much better and ready to be finished with therapy; only thing cannot do like could before is rotation back of both shoulders; doing all of the exercises; Reported Pain Level Pain Score 1,0: Self Report Pain Score 1,0: Self Report Additional Pain Score Comments pain range in the past week 0-1/10 in shoulders; tight, with repetitive things; Assessment PT Clinical Summary Tri has received 8 PT sessions. Compared to the initial evaluation: pain rating has decreased was rated:R 2-8/10 and L 6-10, to now 0-2/10; self assessment Quick DASH from 55% to 9% limitation in activity; all R and L shoulder active ranges and strength have improved; indep with HEP and posture awareness. The goals were achieved. Discharge PT; she is to continue with her HEP. Plan of Care PT Services Indicated No
== END 2023-03-29 13:55 | disposition home or self-care (01) ==
LOC: ANHPT 15:30
PROVIDERS: PCP Family Medicine; Visit Provider Orthopaedic Surgery
DX: M75.01 Adhesive capsulitis of right shoulder (principal); M75.02 Adhesive capsulitis of left shoulder
CPT/HCPCS: 97110; 97140; 97161

== ENCOUNTER 2023-04-28 12:47 | Outpatient (CLI) | payer OTHER, SELFPAY ==
[2023-04-28 13:40] LABS: Alanine Aminotransferase 52 U/L (6-35); Albumin Level 4.7 g/dL (3.5-5.1); Alkaline Phosphatase 110 U/L (38-126); Anion Gap 9 mmol/L (8-16); Aspartate Amino Transferase 52 U/L (14-36); Bilirubin,Total 0.6 mg/dL (0.2-1.3); Blood Urea Nitrogen 12 mg/dL (7-17); Calcium 9.6 mg/dL (8.4-10.2); Carbon Dioxide 28 mmol/L (22-30); Chloride 101 mmol/L (98-107); Estimated Glomerular Filt Rate > 60; Glucose 89 mg/dL (65-110); Sodium 138 mmol/L (137-145)
[2023-04-28 14:10] LABS: Thyroid Stimulating Hormone 0.285 uIU/mL (0.465-4.680); Total Triiodothyronine (T3) 1.77 NG/ML (0.97-1.69)
[2023-04-28 15:32] LABS: Hemoglobin A1C 5.5 % (<5.7)
[2023-04-28 15:52] LABS: Free T4 Free Thyroxine 0.78 ng/mL (0.78-2.19); Vitamin D 25 Hydroxy 22.9 ng/mL
[2023-05-02 04:43] LABS: Thyroid Peroxidase Antibodies 9 IU/mL (<9)
[2023-05-02 18:47] LABS: DHEA-Sulfate 21 mcg/dL (19-231)
[2023-05-03 11:39] LABS: Testosterone Total 13 ng/dL (2-45)
[2023-05-03 11:50] LABS: Testosterone Free 0.8 pg/mL (0.2-5.0)
[2023-05-03 13:23] LABS: Thyrotropin Receptor Antibody 1.31 IU/L (<=2.00)
[2023-05-04 13:39] LABS: Thyroid Stimulating Immunoglob 119 % baseline (<140)
== END 2023-04-28 12:48 | disposition home or self-care (01) ==
LOC: ANHLAB 12:48
PROVIDERS: PCP Family Medicine; Visit Provider Internal Medicine
DX: R53.83 Other fatigue (principal); E03.9 Hypothyroidism, unspecified
CPT/HCPCS: 36415; 80053; 82306; 82627; 83036; 83498; 83519; 84402; 84403; 84439; 84443; 84445; 84480; 86376

== ENCOUNTER 2023-06-17 12:20 | Outpatient (CLI) | payer OTHER, SELFPAY ==
[2023-06-17 13:58] LABS: Free T4 Free Thyroxine 1.35 ng/mL (0.78-2.19)
[2023-06-17 14:06] LABS: Thyroid Stimulating Hormone 0.161 uIU/mL (0.465-4.680)
== END 2023-06-17 12:21 | disposition home or self-care (01) ==
LOC: ANHLAB 12:22
PROVIDERS: PCP Family Medicine; Visit Provider Internal Medicine
DX: E03.9 Hypothyroidism, unspecified (principal)
CPT/HCPCS: 36415; 84439; 84443

== ENCOUNTER 2023-08-04 11:24 | Outpatient (CLI) | payer OTHER, SELFPAY ==
[2023-08-04 12:53] LABS: Thyroid Stimulating Hormone 0.934 uIU/mL (0.465-4.680)
[2023-08-04 13:04] LABS: Free T4 Free Thyroxine 1.44 ng/mL (0.78-2.19)
== END 2023-08-04 11:25 | disposition home or self-care (01) ==
LOC: ANHLAB 11:26
PROVIDERS: PCP Family Medicine; Visit Provider Internal Medicine
DX: E03.9 Hypothyroidism, unspecified (principal)
CPT/HCPCS: 36415; 84439; 84443

== ENCOUNTER 2023-09-22 12:29 | Outpatient (CLI) | payer OTHER, SELFPAY ==
--- NOTE | ~2023-09-22 | US_ITS ---
EXAMINATION:US venous doppler LE LT INDICATION:Leg swelling TECHNIQUE: Multiple grayscale, color flow and Doppler images of the left lower extremity deep venous systems were obtained and reviewed. COMPARISON:No prior studies for comparison. FINDINGS: The common femoral, superficial femoral and popliteal veins demonstrate normal respiratory variation, augmentation and compressibility. Color flow is also seen within the posterior tibial, pe roneal, greater saphenous and profunda veins. IMPRESSION: 1: No lower extremity deep venous thrombosis. Reviewed, dictated and finalized at location B.
== END 2023-09-22 12:30 | disposition home or self-care (01) ==
LOC: ANHIMG 12:31
PROVIDERS: PCP Family Medicine; Visit Provider Internal Medicine
DX: R22.42 Localized swelling, mass and lump, left lower limb (principal); M06.09 Rheumatoid arthritis without rheumatoid factor, multiple sites
CPT/HCPCS: 93971

== ENCOUNTER 2024-02-06 16:44 | Outpatient (CLI) | payer OTHER, SELFPAY ==
[2024-02-06 17:04] LABS: Hemoglobin A1C 5.4 % (<5.7)
[2024-02-06 17:07] LABS: Alanine Aminotransferase 38 U/L (6-35); Albumin Level 4.6 g/dL (3.5-5.1); Alkaline Phosphatase 104 U/L (38-126); Anion Gap 10 mmol/L (4-12); Aspartate Amino Transferase 35 U/L (14-36); Bilirubin,Total 0.3 mg/dL (0.2-1.3); Blood Urea Nitrogen 15 mg/dL (7-17); Calcium 9.4 mg/dL (8.4-10.2); Carbon Dioxide 27 mmol/L (22-30); Chloride 101 mmol/L (98-107); Cholesterol 261 mg/dL (0-200); Estimated Glomerular Filt Rate > 60; Glucose 104 mg/dL (65-110); HDL Direct 72 mg/dL; Potassium 3.7 mmol/L (3.4-5.0); Sodium 138 mmol/L (137-145); Triglycerides 349 mg/dL (<150)
[2024-02-06 17:18] LABS: LDL Cholesterol Direct 120 mg/dL
[2024-02-06 17:37] LABS: Free T4 Free Thyroxine 1.11 ng/mL (0.78-2.19); Thyroid Stimulating Hormone 0.171 uIU/mL (0.465-4.680)
== END 2024-02-06 16:45 | disposition home or self-care (01) ==
PROVIDERS: PCP Family Medicine; Visit Provider Internal Medicine
DX: R63.5 Abnormal weight gain (principal); R53.83 Other fatigue; E03.9 Hypothyroidism, unspecified
CPT/HCPCS: 36415; 80053; 80061; 83036; 84439; 84443

== ENCOUNTER 2024-02-24 13:59 | Outpatient (CLI) | payer OTHER, SELFPAY ==
--- NOTE | ~2024-02-24 | MM_ITS ---
EXAMINATION: MM screening augusto BI w timothy HISTORY: Screening mammogram TECHNIQUE: Craniocaudal and mediolateral oblique 3-D tomosynthesis images were obtained and synthetic 2-D images were generated. CAD analysis was submitted and interpreted. COMPARISON: 02/11/2023 BREAST PARENCHYMAL COMPOSITION:Not Dense. There are scattered areas of fibroglandular density. FINDINGS: No suspicious mass, calcification, or architectural distortion are identified in either hattie ast to suggest malignancy. There has been no suspicious interval change. IMPRESSION: No mammographic evidence of malignancy. Recommend routine screening mammography in one year. BI-RADS Category 1: Negative Reviewed, dictated and finalized at location .
== END 2024-02-24 14:00 | disposition home or self-care (01) ==
LOC: ANHIMG 14:00
PROVIDERS: PCP Family Medicine; Visit Provider Obstetrics & Gynecology
DX: Z12.31 Encounter for screening mammogram for malignant neoplasm of breast (principal)
CPT/HCPCS: 77063; 77067

== ENCOUNTER 2024-04-13 14:14 | Outpatient (CLI) | payer OTHER, SELFPAY ==
--- NOTE | ~2024-04-13 | XR_ITS ---
EXAMINATION: XR foot LT min 3V DATE: 04/13/2024 14:26 INDICATION: Left foot pain. TECHNIQUE: 4 views of left foot were obtained. COMPARISON: Left foot radiographs 11/20/2021 FINDINGS: Alignment is normal. No fracture. There is mild osteoarthritis of first metatarsophalangeal joint. IMPRESSION: 1. Mild osteoarthritis of first metatarsophalangeal joint. Reviewed, dictated and finalized at location A. 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
== END 2024-04-13 14:15 | disposition home or self-care (01) ==
PROVIDERS: PCP Family Medicine; Visit Provider Family Medicine
DX: M19.072 Primary osteoarthritis, left ankle and foot (principal)
CPT/HCPCS: 73630

== ENCOUNTER 2024-05-12 11:39 | Outpatient (CLI) | payer OTHER, SELFPAY ==
[2024-05-12 13:06] LABS: Free T4 Free Thyroxine 1.27 ng/dL (0.78-2.19)
--- OUTSIDE RECORDS SUMMARY | 2024-05-17 08:55 | XMS_ITS | Referral Summary ---
Author Organization [facility] Address [address] [place] [address] Care Team Providers Care Production Tech Name Role Phone Daisy Rubio MD Primary Care Provider [phone] Source Comments [facility],non-owned Affiliates and Associated Physician Practices is amultiple site organization consisting of ambulatory clinics and hospital sitesin [place], [place], [place] and [place]. This disclosure is being madepursuant to the Care Everywhere program and may not contain all information available regarding this patient. Last updated 18.[facility] Allergies Active Allergy Reactions Criticality Noted Date Comments Levofloxacin Other 08/03/2017 Joint Pain Hydrocodone-Acetaminophen RAIL TRACK MAINTAINER Dysfunction 08/03 Could not move or talk Metoprolol Headache Low 04/24/2015 Tramadol Other 08/03/2017 Joint Pain Medications * Be aware that medications may not be up to date on this document. Alwaysverify current medications with the patient. Medication Sig Dispensed Refills Start Date End Date Status ALPRAZolam (XANAX) 0.25 MG tablet Take 4 (four) tablets by mouth at bedtime 1 06/02/2017 Active estradiol (ESTRACE) 2 MG tablet Take 0.5 (one-half) tablet by mouth once daily 1 05/14/2017 Active LINZESS 72 MCG capsule Take 1 (one) capsule by mouth once daily as needed 4 06/11/2017 Active acetaminophen (TYLENOL) 500 MG tablet Take 1 (one) tablet by mouth every 4 hours as needed for Fever or Pain Maximum allowable Acetaminophen amount = 4 Grams (4000 mg) / 24 hours. Active omeprazole (PriLOSEC) 40 MG capsule Take 1 (one) capsule by mouth once daily 09/28/2023 Active levothyroxine (Synthroid) 75 MCG tablet Take 1 (one) tablet by mouth once daily 06/01/2023 Active DULoxetine (Cymbalta) 60 MG capsule Take 1 (one) capsule by mouth at bedtime 09/27/2023 Active cyclobenzaprine (Flexeril) 5 MG tablet Take 1 (one) tablet to 2 (two) tablets by mouth at bedtime 10/01/2023 Active ARIPiprazole (Abilify) 2 MG tablet Take 1 (one) tablet by mouth at bedtime 09/16/2023 Active Humira, 2 Syringe, 40 MG/0.8ML injection Inject 0.8 mL subcutaneously every 7 days 09/22/2023 Active diclofenac sodium EC (Voltaren) 75 MG tablet Take 1 (one) tablet by mouth 2 times daily Active Fexofenadine-Pseu doephedrine (SHERYL-D 24 HOUR PO) Take 1 tablet by mouth once daily Active Vitamin D3, cholecalciferol, 50 MCG (2000 UT) tablet Take 1 (one) tablet by mouth once daily Active multivitamin daily tablet Take 1 (one) tablet by mouth daily with food Active cyanocobalamin (Vitamin B-12) injection Inject 1,000 (one thousand) mcg into muscle every 30 days Active fluticasone-salme terol hfa (Advair HFA) 230-21 MCG/ACT Inhale 2 (two) puffs by mouth once daily as needed (SOB) Active vitamin D, ergocalciferol, (Drisdol) 1.25 MG (38953 UT) capsule Take 1 (one) capsule by mouth every 7 days 6 capsule 11/04/2023 Active Active Problems No known active problems Social History Tobacco Use Types Packs/Day Years Used Date Smoking Tobacco: Former Cigarettes Q uit: 2018 Smokeless Tobacco: Never Comments:started 10 years ol d; tried quiting but led to HTN spike and so no desire to quit Alcohol Use Standard Drinks/Week Comments No 0 (1 standard drink = 0.6 oz pur e alcohol) PHQ-2 Answer Date Recorded Patient Health Questionnaire-2 Score 0 02/08/2024 Sex and Gender Information Value Date Recorded Sex Assigned at Female 10/05/2023 4:21 PM CDT Gender Identity Not on file Sexual Orientation Not on file Last Filed Vital Signs Vital Sign Reading Time Taken Comments Blood Pressure 152/96 11/17/2023 12:15 PM CDT Pulse 70 11/17/2023 12:15 PM CDT Temperature 35.8 ??C (96.5 ??F) 11/17/2023 10:42 AM C DT Respiratory Rate 17 11/17/2023 12:15 PM CDT Oxygen Saturation 100% 11/17/2023 12:15 PM CDT Inhaled Oxygen Concentration - - Weight 76.7 kg (169 lb) 12/05/2023 8:25 AM CDT Height 162.6 cm (5' 4 ) 12/05/2023 8:25 AM CDT Body Mass Index 29.01 12/05/2023 8:25 AM CDT Plan of Treatment Upcoming Encounters Date Type Department Care Team (Late st Contact Info) Description 05/23/2024 8:00 AM 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 TENDER 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 Office Visit [facility] [address] [address] [place] [address] [address] Procedures Procedure Name Priority Date/Time Associated Diagnosis Comments COMPREHENSIVE METABOLIC PANEL STAT 10/26/2023 7:26 AM CDT Pre-op evaluation from Last 3 Months or Most Recently Relevant to Health Maintenance Results * (ABNORMAL) COMPREHENSIVE METABOLIC PANEL (10/26/2023 7:26 AM CDT) Glucose 92 70 - 105 mg/dL 10/26/2023 7:56 AM CDT [facility] Sodium 138 136 - 145 mmol/L 10/26/2023 7:56 AM CDT [facility] Potassium 4.0 3.5 - 5.1 mmol/L 10/26/2023 7:56 AM CDT [facility] Chloride 103 98 - 107 mmol/L 10/26/2023 7:56 AM CDT [facility] CO2 29 22 - 29 mmol/L 10/26/2023 7:56 AM CDT [facility] Calcium 9.6 8.4 - 10.4 mg/dL 10/26/2023 7:56 AM CDT [facility] Anion Gap 6 6 - 16 mmol/L 10/26/2023 7:56 AM CDT [facility] BUN 12 5.3 - 18.7 mg/dL 10/26/2023 7:56 AM CDT [facility] Creatinine 0.85 0.57 - 1.11 mg/dL 10/26/2023 7:56 AM CDT [facility] Alkaline Phosphatase 86 40 - 150 U/L 10/26/2023 7:56 AM CDT [facility] ALT 32 0 - 55 U/L 10/26/2023 7:56 AM CDT [facility] AST 28 5 - 34 U/L 10/26/2023 7:56 AM CDT [facility] Protein Total 7.1 6.4 - 8.3 gm/dL 10/26/2023 7:56 AM CDT [facility] Albumin 3.7 3.4 - 5.0 gm/dL 10/26/2023 7:56 AM CDT [facility] Bilirubin Total 0.2 0.2 - 1.2 mg/dL 10/26/2023 7:56 AM CDT [facility] eGFR by CKD-EPI 84(L) >=90 mL/min/1.7 3 m2 10/26/2023 7:56 AM CDT [facility] Blood BLOOD SPECIMEN / Unknown Venipuncture / Unknown 10/26/2023 7:26 AM CDT 10/26/2023 7:32 AM CDT Johanny Gan NUMERICAL CONTROL MACHINE OPERATOR-EXCEPTIONAL NEEDS TEACHER LAB - CHEMISTRY O RDERABLES Performing Organization Address City/State/[facility] Co de Phone Number [facility] [address] [place] [address] from Last 3 Months or Most Recently Relevant to Health Maintenance Care Teams Production Tech Relationship Specialty Start Date End Date Daisy Rubio MD [address] [place], [place] [id number] PCP - General Family Medicine 10/26/23
--- OUTSIDE RECORDS SUMMARY | 2024-05-17 08:55 | XMS_ITS | CONTINUITY OF CARE DOCUMENT ---
Author Name sujey rm Address Unknown Organization [facility] Address [address] [place] [address] Phone [phone] Care Team Providers Care Electrical Prospecting Observer Name Role Phone Gene MACIAS, Carroll Unavailable CASEY MACIAS, DOMINIK Unavailable [phone] CASEY MACIAS, RUNDA Unavailable PROBLEMS Condition Status Date Provider Notes Palpitations active Brigitte Duong hx of Shortness of breath active Carroll soler MD Health maintenance examination active Yuriy Mills MD Anxiety active Carroll Mills MD LVH active Carroll Mills MD Chest pain-type to be determined active Carroll Mills MD Dizziness;will mosley active Carroll Mills MD HTN essential active Carroll Mills MD Tobacco abuse active Carroll Mills MD Headache active Carroll Mills MD r/o Ischemia;neg nuc 15 active Carroll bonilla MD Chest pain completed - Carroll Mills MD ENCOUNTERS Date Type Provider Location Encounter Diag nosis - In-person encounter Office Visit Carroll Mills MD [place] [facility] hx of Shortness of breathHealth maintenance examination - In-person encounter Office Visit Carroll Mills MD [place] [facility] Chest painr/o Ischemia;neg nuc 15HeadacheTobacco abuseHTN essentialDizziness;will wuChest pain-type to be determinedLVHAnxiety VITAL SIGNS Date Observation Value Provider blood pressure, diastolic 72 mm[Hg] Me ford Crowe blood pressure, systolic 112 mm[Hg] Joy bullard Crowe pulse rate 72 /min Yisel Crowe oxygen saturation, oximetry 98 % Yisel Crowe respiratory rate E&M 15 /min Yisel Crowe Body Mass Index (Ratio) 19.97 kg/m2 Nanette doran Crowe weight E&M 120 [lb_av] Yisel Crowe blood pressure, diastolic 79 mm[Hg] Brock Still [place] blood pressure, systolic 137 mm[Hg] Elda Kahn [place] pulse rate 92 /min Elliot chavarria oxygen saturation, oximetry 98 % Elliot Tabares respiratory rate E&M 16 /min Vaishali delonte Tabares Body Mass Index (Ratio) 20.03 kg/m2 Marianela Carl Rayshawn weight E&M 120.4 [lb_av] Elliot carter height E&M 65 [in_i] Elliot chavarria ALLERGIES Allergy Name Onset Date Reaction Criticality Status LOPRESSOR headache headache Low Criticality ac tive LEVAQUIN High Criticality active TRAMADAL High Criticality active LORTAB High Criticality active RESULTS Date Observation Value Provider Reference Range Interpretation Location 1 vitamin b12, serum 799.2 pg/mL [facility] 211.0 - 946.0 1 free thyroxine index 8.8 ??g/dL [facility] 4.4 - 11.4 1 triiodothyronine uptake 1.0 TBI [facility] 0.8 - 1.3 1 thyroxine, serum, total 8.8 ??G/DL [facility] 4.5 - 11.7 1 thyroid stimulating hormone, serum 1.170 ?IU/ML [facility] 0.270 - 4.200 1 hemoglobin A1C, blood, as % of total hemoglobin 5.6 % [facility] 4.0 - 6.0 1 C-reactive protein, serum 0.1 mg/dL [facility] 0.0 - 0.5 1 free thyroxine index 9.2 ??g/dL [facility] 4.4 - 11.4 1 triiodothyronine uptake 1.0 TBI [facility] 0.8 - 1.3 1 thyroxine, serum, total 9.2 ??G/DL [facility] 4.5 - 11.7 1 thyroid stimulating hormone, serum 1.150 ?IU/ML [facility] 0.270 - 4.200 HISTORY OF MEDICATION USE Medication Status Instructions Dates Provider Indications Com ments ATENOLOL 25 MG ORAL TABLET active up to 4 a day as needed 1 Carroll Mills MD ZESTRIL 2.5 MG ORAL TABLET active up to 10 a day 1 Carroll Mills MD XANAX 0.25 MG ORAL TABLET active ONE TAB. THREE TIMES DAILY PRN 0 Carroll Mills MD METOPROLOL TARTRATE 25 MG ORAL TABLET completed one tab. twice daily 0 - 1 Get Sam RN ZANTAC 150 MG ORAL TABLET active ONE TAB TWICE DAILY Elliot Tabares ASPIRIN 81 MG ORAL TABLET active ONE TAB. DAILY Elliot Tabares ESTRADIOL 1 MG ORAL TABLET active once daily Elliot Tabares LISINOPRIL-HYDR OCHLOROTHIAZIDE 20-12.5 MG ORAL TABLET completed one tab daily - 1 Carroll Mills MD SOCIAL HISTORY Date Observation Value Provider social history reviewed E&M chrissy lackeyed - no changes required Carroll Mills MD smoking/tobacco cess ation, patient education and counseling yes Yisel Crowe number of years as a smoker 25 a Yisel Crowe smoking history, tot al pack/day 0.25 Yisel Crowe cigarette use yes Yisel Crowe smoking status Current every day smoker Hannah Crowe social history reviewed E&M revi ewed - no changes required Carroll Mills MD number of years as a smoker 25 a Elliot Tabares smoking history, tot al pack/day 0.25 Elliot Tabares cigarette use yes Elliot carter smoking status Current every day smoker Hannah Tabares FAMILY HISTORY Family Member Condition Mother Negative FH of Coron dariela Artery Disease INSURANCE PROVIDERS Payer name Policy type / Coverage type [employer] party ID [facility] [id number] TREATMENT PLAN Date Name Performer Cardiology Carroll Mills MD Cardiology:Pulmonary Function Diagnosis: N ormal Pulmonary Function Carroll Mills MD Cardiology:made worse by metopro l, better without it Carroll Mills MD Cardiology:will have zetril and atenolol prn, will avoid diureitics Carroll Mills MD Cardiology:nml vit d, a1c and cr p Carroll Mills MD Cardiology:nml tsh, could not to lerate [place] due to tiny Mills MD Cardiology:has tele on now, will stop bp med and oberve Carroll Mills MD Cardiology:Pulmonary Function Diagnosis: N ormal Pulmonary Function Carroll Mills MD Cardiology:neg echo nuc and cxr and trops and dimer and blood Carroll Mills MD Cardiology:mild 15 with nl ef Tiny Mills MD Cardiology:IMPRESSIO N: P ulmonary hyperexpansion without evidence of acute intrathoracic p rocess. n ml trops bnp and glucose 101, nml trops and cbc and ddiemr Carroll Mills MD Cardiology:neg ct 15 Carroll rodriguez MD Date Name VITAMIN B12 Renal Artery Duplex Mobile Cardiac Tele VITAMIN D, 25-HYDROX Y, LC/MS/MS HEMOGLOBIN A1c C-REACTIVE PROTEIN THYROID PANEL WITH T SH, 3RD GENERATION DLCO - 73157 FRC - 78051 FVC - 33504 HISTORY OF PROCEDURES Procedure Date Procedure Name Provider Procedure Notes S tatus SNOMED-CT: 700306292 [id number] Current Medications Documented Carroll Mills MD completed Mobile Cardiac Telem etry - Tech Carroll Mills MD completed Mobile Cardiac Telem etry - Prof Carroll Mills MD completed BLOOD COUNT HEMOGLOBIN Carroll Mills MD completed FVC - 68825 Carroll Mills MD complet ed FR - 54925 Carroll Mills MD complet ed DLCO - 73997 Carroll Mills MD comple amie SNOMED-CT: [id number] Current Medications Documented Carroll Mills MD completed Stress EKG Torey Bermudez MD completed Cardiolite, 2 units Carroll Mills MD completed SPECT Images Barry Zhang MD compl eted
--- OUTSIDE RECORDS SUMMARY | 2024-05-17 08:55 | XMS_ITS | Clinical Summary ---
Author Organization [facility] Address [address] [place] [address] Care Team Providers Care Property Administrator Name Role Phone Daisy Rubio MD Primary Care Provider [phone] Source Comments [facility],non-owned Affiliates and Associated Physician Practices is amultiple site organization consisting of ambulatory clinics and hospital sitesin [place], [place], [place] and [place]. This disclosure is being madepursuant to the Care Everywhere program and may not contain all information available regarding this patient. Last updated 18.[facility] Allergies Active Allergy Reactions Criticality Noted Date Comments Levofloxacin Other 08/03/2017 Joint Pain Hydrocodone-Acetaminophen ANESTHESIOLOGY TECHNOLOGIST Dysfunction 08/03 Could not move or talk [...] Active vitamin D, ergocalciferol, (Drisdol) 1.25 MG (55943 UT) capsule Take 1 (one) capsule by mouth every 7 days 6 capsule 11/04/2023 Active Active Problems No known active problems Family History Medical History Relation Name Comments COPD - Chronic Obstructive Pulmonary Disease Father Alzheimer's Disease Maternal Grandmother COPD - Chronic Obstructive Pulmonary Disease Maternal Grandmother Diabetes - Type 2 Maternal Grandmother Arthritis - Rheumatoid Mother Other Mother Fibromyalgia Leukemia Other materna Great Grandmothe Other Other materna Great Grandmothe Fib romyalgia Crohn's Disease Neg Hx Lupus Neg Hx Psoriasis Neg Hx Thyroid Disease Neg Hx Ulcerative Colitis Neg Hx Relation Name Status Comments Father Maternal Grandmother Mother Other materna Great Grandmothe Alive Social History Tobacco Use Types Packs/Day Years [...] st Contact Info) Description 05/23/2024 8: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 Office Visit [facility] [address] [address] [place] [address] [facility] [address] [place] [address] Health Maintenance Due Date Last Done Comments COLOGUARD (AGES 45-75) - COL ON CA SCREENING 1973 COLON MONITORING 1973 COLONOSCOPY - COLON CA SCREENING 1973 CT COLONOGRAPHY - COLON CA SCREENING 1973 Colorectal Cancer Screening 1973 FIT - COLON CA SCREENING 1973 FLEX SIG - COLON CA SCREENING 1973 LIPID TESTING 1973 MAMMOGRAM 1973 PAP SMEAR 1973 HIV SCREENING 1988 HEPATITIS C SCREENING 12/22/1991 DTAP/TDAP/TD VACCINES (1 - Tdap) 1992 HEPATITIS B VACCINE (1 of 3 - 19+ 3-dose series) 1992 COVID-19 VACCINE (1 - 2023-2 5 season) 2023 INFLUENZA VACCINE (#1) 2023 PNEUMOCOCCAL VACCINE 50+ (1 of 1 - PCV) 12/27/2023 ZOSTER VACCINE (1 of 2) 12/27/2023 DEPRESSION SCREENING 04/25/2024 07/29/2023 SCREENING FOR DIABETES 10/25/2026 , 08/03/2017 HIB VACCINE Aged Out No longer eligi ble based on patient's age to complete this topic HPV VACCINE Aged Out No longer eligi ble based on patient's age to complete this topic MENINGOCOCCAL (Group B) VACCINE Aged Out No longer eligible b ased on patient's age to complete this topic MENINGOCOCCAL VACCINE Aged Out No kraig shilo eligible based on patient's age to complete this topic Procedures Procedure Name Priority Date/Time Associated Diagnosis [...] - 10.4 mg/dL 10/26/2023 7:56 AM CDT [facility] Anion Gap 6 6 - 16 mmol/L 10/26/2023 7:56 AM CDT [facility] BUN 12 5.3 - 18.7 mg/dL [...] CDT 10/26/2023 7:32 AM CDT Johanny Gan APRN-LIQUID COMPOUNDER LAB - CHEMISTRY O RDERABLES [facility] [address] [place] [address] from Last 3 Months or Most Recently Relevant to Health Maintenance Care Teams Property Administrator Relationship Specialty Start Date End Date Daisy Rubio MD [address] [place] [address] PCP - General Family Medicine 10/26/23
--- OUTSIDE RECORDS SUMMARY | 2024-05-17 08:55 | XMS_ITS | Patient Health Summary ---
Author Organization [facility] Address [address] [place] [address] Care Team Providers Care Command Center Officer Name Role Phone Daisy Rubio MD Primary Care Provider [phone] Note from [facility],non-owned Affiliates and Associated Physician Practices is amultiple site organization consisting of ambulatory clinics and hospital sitesin [place] and [place]. This disclosure is being madepursuant to the Care Everywhere program and may not contain all informatio navailable regarding this patient. Last updated 18.[facility] Allergies * Levofloxacin(Other) * Hydrocodone-Acetaminophen(ELECTRIC OPERATOR Dysfunction) * Metoprolol(Headache) -Low Criticality * Tramadol(Other) Medications * Be aware that medications may not be up to date on this document. Alwaysverify current medications with the patient. * ALPRAZolam (XANAX) 0.25 MG tablet(Started 06/02/2017) Take 4 (four) tablets by mouth at bedtime 1 refill left * estradiol (ESTRACE) 2 MG tablet(Started 05/14/2017) Take 0.5 (one-half) tablet by mouth once daily 1 refill left * LINZESS 72 MCG capsule(Started 06/11/2017) Take 1 (one) capsule by mouth once daily as needed 4 refills left * acetaminophen (TYLENOL) 500 MG tablet Take 1 (one) tablet by mouth every 4 hours as needed for Fever or Pain Maximum allowable Acetaminophen amount = 4 Grams (4000 mg) / 24 hours. * omeprazole (PriLOSEC) 40 MG capsule(Started 09/28/2023) Take 1 (one) capsule by mouth once daily * levothyroxine (Synthroid) 75 MCG tablet(Started 06/01/2023) Take 1 (one) tablet by mouth once daily * DULoxetine (Cymbalta) 60 MG capsule(Started 09/27/2023) Take 1 (one) capsule by mouth at bedtime * cyclobenzaprine (Flexeril) 5 MG tablet(Started 10/01/2023) Take 1 (one) tablet to 2 (two) tablets by mouth at bedtime * ARIPiprazole (Abilify) 2 MG tablet(Started 09/16/2023) Take 1 (one) tablet by mouth at bedtime * Humira, 2 Syringe, 40 MG/0.8ML injection(Started 09/22/2023) Inject 0.8 mL subcutaneously every 7 days * diclofenac sodium EC (Voltaren) 75 MG tablet Take 1 (one) tablet by mouth 2 times daily * Fexofenadine-Pseudoephedrine (SHERYL-D 24 HOUR PO) Take 1 tablet by mouth once daily * Vitamin D3, cholecalciferol, 50 MCG (2000 UT) tablet Take 1 (one) tablet by mouth once daily * multivitamin daily tablet Take 1 (one) tablet by mouth daily with food * cyanocobalamin (Vitamin B-12) injection Inject 1,000 (one thousand) mcg into muscle every 30 days * fluticasone-salmeterol hfa (Advair HFA) 230-21 MCG/ACT Inhale 2 (two) puffs by mouth once daily as needed (SOB) * vitamin D, ergocalciferol, (Drisdol) 1.25 MG (46397 UT) capsule(Started 11/04/2023) Take 1 (one) capsule by mouth every 7 days Active Problems No known active problems Social [...] Mass Index 29.01 12/05/2023 8:25 AM CDT Procedures * IMAGING/RADIOLOGY/XRAY RESULTS ORDER(Performed 11/18/2023) * ENDOTRACHEAL TUBE NOTE(Performed 11/17/2023) * MI DRAIN/INJECT LARGE JOINT/BURSA(Performed 11/17/2023) Performed for Tear of left rotator cuff, unspecified tear extent, unspecified whether traumatic * MI SHOULDER ARTHROSCOPY(Performed 11/17/2023) Performed for Tear of left rotator cuff, unspecified tear extent, unspecified whether traumatic * MI SHOULDER ARTHROSCOPY/SURGERY(Performed 11/17/2023) Performed for Tear of left rotator cuff, unspecified tear extent, unspecified whether traumatic * PERIPHERAL BLOCK(Performed 11/17/2023) * EKG 12-LEAD(Performed 10/26/2023) Performed for Pre-op evaluation * COMPREHENSIVE METABOLIC PANEL(Performed 10/26/2023) Performed for Pre-op evaluation * CBC W AUTO DIFFERENTIAL(Performed 10/26/2023) Performed for Pre-op evaluation * XR CERVICAL SPINE 2 OR 3VW(Performed 07/29/2023) Performed for Numbness and tingling * XR SHOULDER LEFT 2VW OR MORE(Performed 07/29/2023) Performed for Chronic left shoulder pain * XR PELVIS W BILAT HIP 2VW(Performed 05/06/2022) Performed for Seronegative rheumatoid arthritis of multiple sites (HCC), Ankylosing spondylitis of multiple sites in spine (HCC), Sacroiliitis (HCC), Insomnia due to medical condition * XR FOOT LEFT 3VW OR MORE(Performed 08/03/2017) Performed for Arthralgia of multiple sites, Positive JAN (antinuclear antibody) * XR FOOT RIGHT 3VW OR MORE(Performed 08/03/2017) Performed for Arthralgia of multiple sites, Positive JAN (antinuclear antibody) * XR HAND LEFT 3VW OR MORE(Performed 08/03/2017) Performed for Arthralgia of multiple sites, Positive JAN (antinuclear antibody) * XR HAND RIGHT 3VW OR MORE(Performed 08/03/2017) Performed for Arthralgia of multiple sites, Positive JAN (antinuclear antibody) * LINO STAINING PATTERNS REFLEXED(Performed 08/03/2017) Performed for Arthralgia of multiple sites, Positive JAN (antinuclear antibody) * URINALYSIS REFLEX TO MICROSCOPIC NO CULTURE(Performed 08/03/2017) Performed for Pain in joint, multiple sites, Abnormal antinuclear antibody titer * LDH BLOOD(Performed 08/03/2017) Performed for Arthralgia of multiple sites, Positive JAN (antinuclear antibody) * ALDOLASE(Performed 08/03/2017) Performed for Arthralgia of multiple sites, Positive JAN (antinuclear antibody) * CK BLOOD(Performed 08/03/2017) Performed for Arthralgia of multiple sites, Positive JAN (antinuclear antibody) * THYROID PEROXIDASE ANTIBODY(Performed 08/03/2017) Performed for Arthralgia of multiple sites, Positive JAN (antinuclear antibody) * THYROGLOBULIN ANTIBODY(Performed 08/03/2017) Performed for Arthralgia of multiple sites, Positive JAN (antinuclear antibody) * ERYTHROCYTE SEDIMENTATION RATE(Performed 08/03/2017) Performed for Arthralgia of multiple sites, Positive JAN (antinuclear antibody) * C-REACTIVE PROTEIN(Performed 08/03/2017) Performed for Arthralgia of multiple sites, Positive JAN (antinuclear antibody) * COMPREHENSIVE METABOLIC PANEL(Performed 08/03/2017) Performed for Arthralgia of multiple sites, Positive JAN (antinuclear antibody) * CBC W AUTO DIFFERENTIAL(Performed 08/03/2017) Performed for Arthralgia of multiple sites, Positive JAN (antinuclear antibody) * COMPLEMENT TOTAL(Performed 08/03/2017) Performed for Arthralgia of multiple sites, Positive JAN (antinuclear antibody) * COMPLEMENT C4(Performed 08/03/2017) Performed for Arthralgia of multiple sites, Positive JAN (antinuclear antibody) * COMPLEMENT C3(Performed 08/03/2017) Performed for Arthralgia of multiple sites, Positive JAN (antinuclear antibody) * SS-B (SJOGREN'S) ANTIBODY(Performed 08/03/2017) Performed for Arthralgia of multiple sites, Positive JAN (antinuclear antibody) * SS-A (SJOGREN'S) ANTIBODY(Performed 08/03/2017) Performed for Arthralgia of multiple sites, Positive JAN (antinuclear antibody) * SCLERODERMA 70 (SCL) ANTIBODY(Performed 08/03/2017) Performed for Arthralgia of multiple sites, Positive JAN (antinuclear antibody) * RADIOLOGIC THERAPIST ANTIBODY(Performed 08/03/2017) Performed for Arthralgia of multiple sites, Positive JAN (antinuclear antibody) * HISTONE ANTIBODY(Performed 08/03/2017) Performed for Arthralgia of multiple sites, Positive JAN (antinuclear antibody) * DNA (DS) ANTIBODY RFLEX IFA(Performed 08/03/2017) Performed for Arthralgia of multiple sites, Positive JAN (antinuclear antibody) * DWYER (SM) ANTIBODY MARY(Performed 08/03/2017) Performed for Arthralgia of multiple sites, Positive JAN (antinuclear antibody) * JAN BLOOD SCREEN W/REFLEX TITER(Performed 08/03/2017) Performed for Arthralgia of multiple sites, Positive JAN (antinuclear antibody) * CULTURE URINE(Performed 08/03/2017) Performed for Pain in joint, multiple sites, Abnormal antinuclear antibody titer Results * IMAGING RADIOLOGY XRAY RESULTS ORDER (11/18/2023 3:31 PM CDT) Anatomical Region Laterality Modality Other Narrative 11/18/2023 3:31 PM CDT Ordered by an unspecified provider. Scanned Document IMAGING * ETT LINE PERFORMABLE (11/17/2023 10:00 AM CDT) Narrative Leida Fitzpatrick APRN-CRNA - 11/17/2023 10:00 AM CDT Leida Fitzpatrick APRN-CRNA ? 11/17/2023 10:01 AM Endotracheal Tube Placement: ? Patient Location: OR. Intubation Event Date/Time: ??11/17/2023 9:24 AM Procedure: intubation ([id number]) Procedure Section: ?? Sedation: under general anesthesia. Indications for Airway Management: ??anesthesia Induction: modified rapid sequence Patient Position: ??supine Mask Ventilation: not attempted. Blade Type: Video (KitOrder) Blade Size: 3 Laryngoscopy View: grade 1 (full cords) Intubation Adjuncts: stylet and video laryngoscope Tube: endotracheal tube Placement: oral Tube type: cuff - inflated Tube Size (MM): 7 Depth of Insertion (CM): 20 Measured From: teeth Cuff volume (mL): ??7 Cuff Inflated With: air Number of Attempts: 1. Placement Verified By: direct visualization, bilateral breath sounds, chest auscultation and CO2 monitor Tube secured with: ??adhesive tape. Dentition unchanged? ??Yes Difficult Airway? ??No. Procedure Start Time: 11/17/2023 9:24 AM. Staff Section ? Anesthesia Provider: Leida Fitzpatrick APRN-JAVA WEB ARCHITECT, Performed the procedure Naren Riggins MD GENERAL ANESTHESIA O RDERASHAI * Peripheral Nerve Block (11/17/2023 8:39 AM CDT) Narrative Naren Rgigins MD - 11/17/2023 8:39 AM CDT Naren Riggins MD ? 11/17/2023 ??8:41 AM Peripheral ??Nerve Block ?? Procedure: Peripheral Nerve Block Patient Location: ??Pre-op Preprocedure Section: ?? Indications: at surgeon's request and postop pain management. Pre-anesthetic Checklist: Patient identified, IV Checked, Site examined and clear, Risks and benefits discussed, Surgical consent verified, Monitors and equipment, Time-out performed, Informed consent obtained, Pre-op evaluation done, Questions answered/anesthesia questions answered, Allergies reviewed and Removal hand/wrist jewelry Monitors: BP, Pulse Ox and EKG. Patient Condition: ??sedated, meaningful contact maintained throughout procedure Patient Position: supine Patient Sedated? ??Yes ? Sedation Type: ??mild ? Sedation Agents: ??fentaNYL (PF) (SUBLIMAZE) injection - Intravenous 100 mcg - 11/17/2023 8:40:00 AM midazolam (VERSED) injection - Intravenous 2 mg - 11/17/2023 8:40:00 AM Procedure Section ?? Laterality: left Block Performed: ??Interscalene Prep: ??Chloraprep Strerile Field: gloves, mask and hat/cap Skin localized with: lidocaine (XYLOCAINE MPF) 1 % injection - Infiltration 1 mL - 11/17/2023 8:40:00 AM Needle Type: ??Echogenic insulated Needle Gauge: ??22 Needle Length: ??80 mm Catheter?No Ultrasound Guided? ?? Yes ? Technique: ??in plane ? Visualization: ??Preliminary scan performed, Important anatomical structures identified, Needle tip visualized throughout the procedure, Target identified, No intraneural or intravascular puncture occurred, Ultrasound image in chart, Local visualized surrounding nerve on ultrasound and Hydrodissection utilized Injection was made incrementally with constant monitoring and aspirations every 5 mL's Injection Assessment: ?? Slow fractionated injection Block Agents or Additives used? Yes Block agents used: bupivacaine 0.5% - EPINEPHrine 1:200,000 (PF) injection - Infiltration 30 mL - 11/17/2023 8:40:00 AM Procedure Tolerance: tolerated well and no immediate complications Procedure Start Time: 11/17/2023 8:41 AM. Procedure End Time: 11/17/2023 8:41 AM. Procedure Total Time: 0 ??minutes. Staff Section ? Anesthesia Provider: Naren Riggins MD, Performed the procedure Naren Riggins MD GENERAL ANESTHESIA O RDERABLES * EKG 12-LEAD (10/26/2023 7:35 AM CDT) Pathologist [facility] Ventricular Rate 70 BPM [facility] Atrial Rate 70 BPM [facility] P-R Interval 148 ms [facility] QRS Duration ms 84 ms [facility] Q-T Interval ms 404 ms [facility] QTC Calculation (Bezet) 436 ms [facility] Calculated P [place] 72 degrees [facility] Calculated R [place] 62 degrees [facility] Calculated T [place] 46 degrees [facility] Interpretation EKG Normal sinus rhythm Normal ECG No previous ECGs available Confirmed by ANAMIKA STEPHENS MD ([id number]) on 10/27/2023 10:01:34 AM [facility] M[facility] 10/26/2023 7:35 AM CDT 10/27/2023 10:01 AM CDT [place] Up DO ECG ORDERABLES [facility] * (ABNORMAL) CBC W AUTO DIFFERENTIAL (10/26/2023 7:26 AM CDT) Only the most recent of2 resultswithin the time period is included. WBC 6.4 4.0 - 10.7 x10E9/L 10/26/2023 7:50 AM CDT [facility] RBC Count 4.12 3.90 - 5.20 x10E12/L 10/26/2023 7:50 AM CDT [facility] Hemoglobin 11.1(L) 11.9 - 15.8 g/dL 10/26/2023 7:50 AM CDT [facility] Hematocrit 34.7(L) 34.8 - 46.1 % 10/26/2023 7:50 AM CDT [facility] MCV 84.2 80.0 - 98.0 fL 10/26/2023 7:50 AM CDT [facility] MCH 26.9 26.7 - 33.6 pg 10/26/2023 7:50 AM CDT [facility] MCHC 32.0 31.7 - 36.3 g/dL 10/26/2023 7:50 AM CDT [facility] RDW-CV 13.1 11.3 - 14.8 % 10/26/2023 7:50 AM CDT [facility] Platelet Count 235 150 - 420 x10E9/L 10/26/2023 7:50 AM CDT [facility] MPV 10.5 7.8 - 11.4 fL 10/26/2023 7:50 AM CDT [facility] Neutrophil % 35.3(L) 41.0 - 74.0 % 10/26/2023 7:50 AM CDT [facility] Lymphocyte % 46.7 17.0 - 47.0 % 10/26/2023 7:50 AM CDT [facility] Monocyte % 12.1(H) 3.0 - 11.0 % 10/26/2023 7:50 AM CDT [facility] Eosinophil % 5.2 0.0 - 7.0 % 10/26/2023 7:50 AM CDT [facility] Basophil % 0.5 0.0 - 1.6 % 10/26/2023 7:50 AM CDT [facility] Immature Granulocytes % 0.2 0.0 - 1.0 % 10/26/2023 7:50 AM CDT [facility] Neutrophil Absolute 2.26 1.60 - 7.50 x10E9/L 10/26/2023 7:50 AM CDT [facility] Lymphocyte Absolute 2.98 1.00 - 4.40 x10E9/L 10/26/2023 7:50 AM CDT [facility] Monocyte Absolute 0.77 0.15 - 1.00 x10E9/L 10/26/2023 7:50 AM CDT [facility] Eosinophil Absolute 0.33 0.00 - 0.60 x10E9/L 10/26/2023 7:50 AM CDT [facility] Basophil Absolute 0.03 0.00 - 0.13 x10E9/L 10/26/2023 7:50 AM CDT [facility] Blood BLOOD SPECIMEN / Unknown Venipuncture / Unknown 10/26/2023 7:26 AM CDT 10/26/2023 7:32 AM CDT Johanny Gan ANIMAL ANATOMIST-HEAD MACHINIST LAB - HEMATOLOGY ORDERABLES [facility] [address] [place] [address] * (ABNORMAL) COMPREHENSIVE METABOLIC PANEL (10/26/2023 7:26 AM CDT) Only the most recent of2 resultswithin the time period is included. Glucose 92 70 - 105 mg/dL 10/26/2023 7:56 AM CDT [facility] Sodium 138 136 - 145 mmol/L 10/26/2023 7:56 AM CDT [facility] Potassium 4.0 3.5 - 5.1 mmol/L 10/26/2023 7:56 AM CDT [facility] Chloride 103 98 - 107 mmol/L 10/26/2023 7:56 AM CDT [facility] CO2 29 22 - 29 mmol/L 10/26/2023 7:56 AM CDT [facility] Calcium 9.6 8.4 - 10.4 mg/dL 10/26/2023 7:56 AM CDT [facility] Anion Gap 6 6 - 16 mmol/L 10/26/2023 7:56 AM CDT [facility] BUN 12 5.3 - 18.7 mg/dL 10/26/2023 7:56 AM CDT [facility] Creatinine 0.85 0.57 - 1.11 mg/dL 10/26/2023 7:56 AM CDT [facility] Alkaline Phosphatase 86 40 - 150 U/L 10/26/2023 7:56 AM CDT [facility] ALT 32 0 - 55 U/L 10/26/2023 7:56 AM CDT [facility] AST 28 5 - 34 U/L 10/26/2023 7:56 AM CDT [facility] Protein Total 7.1 6.4 - 8.3 gm/dL 10/26/2023 7:56 AM CDT [facility] Albumin 3.7 3.4 - 5.0 gm/dL 10/26/2023 7:56 AM CDT [facility] Bilirubin Total 0.2 0.2 - 1.2 mg/dL 10/26/2023 7:56 AM T [facility] eGFR by CKD-EPI 84(L) >=90 mL/min/1.7 3 m2 10/26/2023 7:56 AM CDT [facility] Blood BLOOD SPECIMEN / Unknown Venipuncture / Unknown 10/26/2023 7:26 AM CDT 10/26/2023 7:32 AM CDT Johanny Gan ANIMAL ANATOMIST-HEAD MACHINIST LAB - CHEMISTRY O RDERABLES Performing Organization Address City/[facility]/ZIP Co de Phone Number [facility] [address] [address] [phone] * XR CERVICAL SPINE 2 OR 3VW (07/29/2023 11:39 AM CDT) Narrative [facility] [address] - 07/29/2023 11:39 AM CDT Please see progress note in Epic for results. Daisy Pedro PA-C DIAGNOSTIC IMAGING O RDERABLES [facility] [address] * XR SHOULDER LEFT 2VW OR MORE (07/29/2023 11:29 AM CDT) Narrative [facility] [address] - 07/29/2023 11:29 AM CDT Please see progress note in Epic for results. Daisy Pedro PA-C DIAGNOSTIC IMAGING O RDERABLES [facility] [address] * XR HIPS BILATERAL 2 VW W AP PELVIS (05/06/2022 3:05 PM EMAIL MARKETER) Anatomical Region Laterality Modality Pelvis, Lower Extremity Radiogra phic Imaging 05/06/2022 3:10 PM EMAIL MARKETER Impressions 05/06/2022 3:11 PM EMAIL MARKETER IMPRESSION: 1. No acute fracture or osseous abnormality in the hips or pelvis. 2. Minimal sclerosis at the inferior margin of the left sacroiliac joint. > Interpreting Provider: Daisy Marquez MD on 05/06/2022 3:11 PM Narrative 05/06/2022 3:11 PM EMAIL MARKETER PROCEDURE: ??XR PELVIS W BILAT HIP 2VW, DATE/TIME OF EXAM: ??05/06/2022 3:05 PM, LOCATION ??[facility] INDICATION: M06.09: Rheumatoid arthritis without rheumatoid factor, multiple sites ([facility]) M45.0: Ankylosing spondylitis of multiple sites in spine ([facility]) M46.1: Sacroiliitis, not elsewhere classified ([facility]) G47.01: Insomnia due to medical condition ADDITIONAL CLINICAL INFORMATION: Ordering Provider Reason For Exam: Technologist Note: Additional: COMPARISON: None. TECHNIQUE: AP and lateral views of both hips were obtained along with AP view of the pelvis. FINDINGS: No acute fracture or dislocation is seen in either hip. Joint spaces are maintained. Sacroiliac joints appear patent. Minimal sclerosis is noted at the inferior margin of the left sacroiliac joint. Procedure Note Daisy Marquez MD - 05/06/2022 PROCEDURE: XR PELVIS W BILAT HIP 2VW, DATE/TIME OF EXAM: 33:05 PM, LOCATION [facility] INDICATION: M06.09: Rheumatoid arthritis without rheumatoid factor, multiple sites ([facility]) M45.0: Ankylosing spondylitis of multiple sites in spine ([facility]) M46.1: Sacroiliitis, not elsewhere classified ([facility]) G47.01: Insomnia due to medical condition ADDITIONAL CLINICAL INFORMATION: Ordering Provider Reason For Exam: Technologist Note: Additional: COMPARISON: None. TECHNIQUE: AP and lateral views of both hips were obtained along with AP view ofthe pelvis. FINDINGS: No acute fracture or dislocation is seen in either hip. Joint spaces are maintained. Sacroiliac joints appear patent. Minimal sclerosis is notedat the inferior margin of the left sacroiliac joint. IMPRESSION: 1. No acute fracture or osseous abnormality in the hips or pelvis. 2. Minimal sclerosis at the inferior margin of the left sacroiliacjoint. > Interpreting Provider: Daisy Marquez MD on 05/06/2022 3:11 PM Gurinder Quintana MD DIAGNOSTIC IMAGING O RDERABLES * XR FOOT 3+ VW RIGHT [[id number]] (08/03/2017 11:01 AM CDT) Anatomical Region Laterality Modality Ankle / Foot Radiographic Saskia ging 08/03/2017 11:4 3 AM CDT Impressions 08/03/2017 11:45 AM CDT IMPRESSION: Normal bilateral hand and foot radiographs. This report was electronically signed by TEJINDER LOVE MD ??on 08/03/2017 11:45 AM . Narrative 08/03/2017 11:45 AM CDT Exam: 1. XR HAND RIGHT 3VW OR MORE, 2. XR FOOT LEFT 3VW OR MORE, 3.XR FOOT RIGHT 3VW OR MORE, 4.XR HAND LEFT 3VW OR MORE History: ??M25.50: Arthralgia of multiple sites R76.8: Positive JAN (antinuclear antibody) Comparison: None. Findings: Right hand: No fracture or dislocation is present. The joint spaces are normal. No erosions are seen. ??Bone density appears normal. ??The soft tissues are normal. Left hand: No fracture or dislocation is present. The joint spaces are normal. No erosions are seen. ??Bone density appears normal. ??The soft tissues are normal. Right foot: No fracture or dislocation is present. The joint spaces are normal. No erosions are seen. ??Bone density appears normal. ??The soft tissues are normal. Left foot: No fracture or dislocation is present. The joint spaces are normal. No erosions are seen. ??Bone density appears normal. ??The soft tissues are normal. Procedure Note Tejinder Love MD - 08/03/2017 Exam: 1. XR HAND RIGHT 3VW OR MORE, 2. XR FOOT LEFT 3VW OR MORE, 3.XR FOOT RIGHT 3VW OR MORE, 4.XR HAND LEFT 3VW OR MORE History: M25.50: Arthralgia of multiple sites R76.8: Positive JAN (antinuclear antibody) Comparison: None. Findings: Right hand: No fracture or dislocation is present. The joint spaces are normal. No erosions are seen. Bone density appears normal. The soft tissues are normal. Left hand: No fracture or dislocation is present. The joint spaces are normal. No erosions are seen. Bone density appears normal. The soft tissues are normal. Right foot: No fracture or dislocation is present. The joint spaces are normal. No erosions are seen. Bone density appears normal. The soft tissues are normal. Left foot: No fracture or dislocation is present. The joint spaces are normal. No erosions are seen. Bone density appears normal. The soft tissues are normal. IMPRESSION: Normal bilateral hand and foot radiographs. This report was electronically signed by TEJINDER LOVE MD on08/03/2017 11:45 AM . Bebeto Braga MD DIAGNOSTIC IMAGING O RDERABLES * XR FOOT 3+ VW LEFT [[id number]] (08/03/2017 11:01 AM CDT) Anatomical Region Laterality Modality Ankle / Foot Radiographic Saskia ging 08/03/2017 11:4 3 AM CDT Impressions 08/03/2017 11:45 AM CDT IMPRESSION: Normal bilateral hand and foot radiographs. This report was electronically signed by TEJINDER LOVE MD ??on 08/03/2017 11:45 AM . Narrative 08/03/2017 11:45 AM CDT Exam: 1. XR HAND RIGHT 3VW OR MORE, 2. XR FOOT LEFT 3VW OR MORE, 3.XR FOOT RIGHT 3VW OR MORE, 4.XR HAND LEFT 3VW OR MORE History: ??M25.50: Arthralgia of multiple sites R76.8: Positive JAN (antinuclear antibody) Comparison: None. Findings: Right hand: No fracture or dislocation is present. The joint spaces are normal. No erosions are seen. ??Bone density appears normal. ??The soft tissues are normal. Left hand: No fracture or dislocation is present. The joint spaces are normal. No erosions are seen. ??Bone density appears normal. ??The soft tissues are normal. Right foot: No fracture or dislocation is present. The joint spaces are normal. No erosions are seen. ??Bone density appears normal. ??The soft tissues are normal. Left foot: No fracture or dislocation is present. The joint spaces are normal. No erosions are seen. ??Bone density appears normal. ??The soft tissues are normal. Procedure Note Tejinder Love MD - 08/03/2017 Exam: 1. XR HAND RIGHT 3VW OR MORE, 2. XR FOOT LEFT 3VW OR MORE, 3.XR FOOT RIGHT 3VW OR MORE, 4.XR HAND LEFT 3VW OR MORE History: M25.50: Arthralgia of multiple sites R76.8: Positive JAN (antinuclear antibody) Comparison: None. Findings: Right hand: No fracture or dislocation is present. The joint spaces are normal. No erosions are seen. Bone density appears normal. The soft tissues are normal. Left hand: No fracture or dislocation is present. The joint spaces are normal. No erosions are seen. Bone density appears normal. The soft tissues are normal. Right foot: No fracture or dislocation is present. The joint spaces are normal. No erosions are seen. Bone density appears normal. The soft tissues are normal. Left foot: No fracture or dislocation is present. The joint spaces are normal. No erosions are seen. Bone density appears normal. The soft tissues are normal. IMPRESSION: Normal bilateral hand and foot radiographs. This report was electronically signed by TEJINDER LOVE MD on08/03/2017 11:45 AM . Bebeto Braga MD DIAGNOSTIC IMAGING O RDERABLES * XR HAND 3+ VW RIGHT [[id number]] (08/03/2017 11:01 AM CDT) Anatomical Region Laterality Modality Wrist / Hand Radiographic Saskia ging 08/03/2017 11:4 3 AM CDT Impressions 08/03/2017 11:45 AM CDT IMPRESSION: Normal bilateral hand and foot radiographs. This report was electronically signed by TEJINDER LOVE MD ??on 08/03/2017 11:45 AM . Narrative 08/03/2017 11:45 AM CDT Exam: 1. XR HAND RIGHT 3VW OR MORE, 2. XR FOOT LEFT 3VW OR MORE, 3.XR FOOT RIGHT 3VW OR MORE, 4.XR HAND LEFT 3VW OR MORE History: ??M25.50: Arthralgia of multiple sites R76.8: Positive JAN (antinuclear antibody) Comparison: None. Findings: Right hand: No fracture or dislocation is present. The joint spaces are normal. No erosions are seen. ??Bone density appears normal. ??The soft tissues are normal. Left hand: No fracture or dislocation is present. The joint spaces are normal. No erosions are seen. ??Bone density appears normal. ??The soft tissues are normal. Right foot: No fracture or dislocation is present. The joint spaces are normal. No erosions are seen. ??Bone density appears normal. ??The soft tissues are normal. Left foot: No fracture or dislocation is present. The joint spaces are normal. No erosions are seen. ??Bone density appears normal. ??The soft tissues are normal. Procedure Note Tejinder Love MD - 08/03/2017 Exam: 1. XR HAND RIGHT 3VW OR MORE, 2. XR FOOT LEFT 3VW OR MORE, 3.XR FOOT RIGHT 3VW OR MORE, 4.XR HAND LEFT 3VW OR MORE History: M25.50: Arthralgia of multiple sites R76.8: Positive JAN (antinuclear antibody) Comparison: None. Findings: Right hand: No fracture or dislocation is present. The joint spaces are normal. No erosions are seen. Bone density appears normal. The soft tissues are normal. Left hand: No fracture or dislocation is present. The joint spaces are normal. No erosions are seen. Bone density appears normal. The soft tissues are normal. Right foot: No fracture or dislocation is present. The joint spaces are normal. No erosions are seen. Bone density appears normal. The soft tissues are normal. Left foot: No fracture or dislocation is present. The joint spaces are normal. No erosions are seen. Bone density appears normal. The soft tissues are normal. IMPRESSION: Normal bilateral hand and foot radiographs. This report was electronically signed by TEJINDER LOVE MD on08/03/2017 11:45 AM . Bebeto Braga MD DIAGNOSTIC IMAGING O RDERABLES * XR HAND 3+ VW LEFT [[id number]] (08/03/2017 11:01 AM CDT) Anatomical Region Laterality Modality Wrist / Hand Radiographic Saskia ging 08/03/2017 11:4 3 AM CDT Impressions 08/03/2017 11:45 AM CDT IMPRESSION: Normal bilateral hand and foot radiographs. This report was electronically signed by TEJINDER LOVE MD ??on 08/03/2017 11:45 AM . Narrative 08/03/2017 11:45 AM CDT Exam: 1. XR HAND RIGHT 3VW OR MORE, 2. XR FOOT LEFT 3VW OR MORE, 3.XR FOOT RIGHT 3VW OR MORE, 4.XR HAND LEFT 3VW OR MORE History: ??M25.50: Arthralgia of multiple sites R76.8: Positive JAN (antinuclear antibody) Comparison: None. Findings: Right hand: No fracture or dislocation is present. The joint spaces are normal. No erosions are seen. ??Bone density appears normal. ??The soft tissues are normal. Left hand: No fracture or dislocation is present. The joint spaces are normal. No erosions are seen. ??Bone density appears normal. ??The soft tissues are normal. Right foot: No fracture or dislocation is present. The joint spaces are normal. No erosions are seen. ??Bone density appears normal. ??The soft tissues are normal. Left foot: No fracture or dislocation is present. The joint spaces are normal. No erosions are seen. ??Bone density appears normal. ??The soft tissues are normal. Procedure Note Tejinder Love MD - 08/03/2017 Exam: 1. XR HAND RIGHT 3VW OR MORE, 2. XR FOOT LEFT 3VW OR MORE, 3.XR FOOT RIGHT 3VW OR MORE, 4.XR HAND LEFT 3VW OR MORE History: M25.50: Arthralgia of multiple sites R76.8: Positive JAN (antinuclear antibody) Comparison: None. Findings: Right hand: No fracture or dislocation is present. The joint spaces are normal. No erosions are seen. Bone density appears normal. The soft tissues are normal. Left hand: No fracture or dislocation is present. The joint spaces are normal. No erosions are seen. Bone density appears normal. The soft tissues are normal. Right foot: No fracture or dislocation is present. The joint spaces are normal. No erosions are seen. Bone density appears normal. The soft tissues are normal. Left foot: No fracture or dislocation is present. The joint spaces are normal. No erosions are seen. Bone density appears normal. The soft tissues are normal. IMPRESSION: Normal bilateral hand and foot radiographs. This report was electronically signed by TEJINDER LOVE MD on08/03/2017 11:45 AM . Bebeto Braga MD DIAGNOSTIC IMAGING O RDERABLES * DNA (DS) ANTIBODY RFLEX IFA (08/03/2017 10:43 AM CDT) dsDNA Antibody 5 0 - 29 IU/mL 08/05/2017 10:36 AM CDT [facility] Comment: dsDNA Antibody Numeric Result Interpretation: ? 0 - 29 IU/mL: ??Negative ?30 - 75 IU/mL: ??Borderline ?>75 IU/mL: ??Positive ? Blood BLOOD SPECIMEN / Unknown Lab Venipuncture / Unknown 08/03/2017 10:43 AM CDT 08/03/2017 11:20 AM CDT Bebeto Braga MD LAB - SEROLOGY ORDER DEBBI [facility] [address] [phone] * (ABNORMAL) LINO STAINING PATTERNS REFLEXED (08/03/2017 10:43 AM CDT) Speckled Pattern 1:320(H) 08/05/2017 5:11 PM CDT [facility] ([facility]) Note Comment 08/05/2017 5:11 PM CDT [facility] ([facility]) Blood BLOOD SPECIMEN / Unknown Lab Venipuncture / Unknown 08/03/2017 10:43 AM CDT 08/03/2017 11:15 AM CDT Narrative [facility] ([facility]) - 08/05/2017 5:11 PM CDT A positive JAN result may occur in healthy individuals (low titer) or be associated with a variety of diseases. ??See interpretation chart which is not all inclusive: Pattern ?Antigen Detected ??Suggested Disease Association ? Homogeneous ??DNA(ds,ss), ? SLE - High titers ? Nucleosomes, ? Histones ?Drug-induced SLE ? Speckled ? Sm, RADIOLOGIC THERAPIST, SCL-70, ??SLE,MCTD,PSS (diffuse form), ? SS-A/SS-B ? Sjogrens ? Nucleolar ?SCL-70, PM-1/SCL ??High titers Scleroderma, ? PM/DM ? Centromere ?? Centromere ?PSS (limited form) w/Crest ? syndrome variable ? Nuclear Dot ??[id number] ??Primary Biliary Cirrhosis ? Nuclear ?GP210, ?Primary Biliary Cirrhosis Membrane ? magda A,B,C ? Bebeto Braga MD LAB - PATHOLOGY/CYTO LOGY ORDERABLES [facility]) [address] [place] [address], [facility] * (ABNORMAL) URINALYSIS REFLEX TO MICROSCOPIC NO CULTURE (08/03/2017 10:43 AM CDT) Color UA Yellow Straw, Yellow, Colorless, Light Yellow 08/03/2017 11:24 AM [facility] Clarity UA Clear Clear 08/03/2017 11:24 AM [facility] Specific [place] UA 1.010 1.001 - 1.030 08/03/2017 11:24 AM [facility] pH UA 5.0 5.0 - 8.0 08/03/2017 11:24 AM [facility] Protein UA Negative <=20 mg/dL 08/03/2017 11:24 AM [facility] Glucose UA Negative Negative mg/dL 08/03/2017 11:24 AM [facility] Ketone UA Negative Negative mg/dL 08/03/2017 11:24 AM [facility] Bilirubin UA Negative Negative mg/dL 08/03/2017 11:24 AM [facility] Blood UA Negative Negative 08/03/2017 11:24 AM [facility] Nitrite UA Negative Negative 08/03/2017 11:24 AM [facility] Leukocyte Esterase Negative Negative 08/03/2017 11:24 AM [facility] Urobilinogen UA <2.0 <2.0 mg/dL 8 11:24 AM [facility] RBC UA <1 0 - 8 /HPF 08/03/2017 11:24 AM [facility] WBC UA <1 0 - 2 /HPF 08/03/2017 11:24 AM [facility] Bacteria UA Rare Rare, Occasional, None /HPF 08/03/2017 11:24 AM [facility] Squamous Epithelial Cells UA 1 0 - 1 /HPF 08/03/2017 11:24 AM [facility] Mucus UA Rare(A) None /LPF 08/03/2017 11:24 AM [facility] Urine URINE SPECIMEN OBTAINED BY CLEAN CATCH PROCEDURE / Unknown Collection / Unknown 08/03/2017 10:43 AM CDT 08/03/2017 11:15 AM [facility] Bebeto Braga MD LAB - URINALYSIS ORD ERABLES [facility] [address] [phone] * DWYER (SM) ANTIBODY MARY (08/03/2017 10:43 AM CDT) Dwyer Antibody 5.1 0.0 - 19.9 Units 08/05/2017 10:36 AM CDT [facility] Comment: MARY Antibody Numeric Result Interpretation: ?<20.0 Units: ??Negative ?20.0 - 39.0 Units: ??Weakly Positive ?>39.0 Units: ??Positive ? Blood BLOOD SPECIMEN / Unknown Lab Venipuncture / Unknown 08/03/2017 10:43 AM CDT 08/03/2017 11:20 AM CDT Bebeto Braga MD LAB - CHEMISTRY ARMANDO ROMO Performing Organization Address [facility] de Phone Number [address] [phone] * RADIOLOGIC THERAPIST ANTIBODY (08/03/2017 10:43 AM CDT) SM/RADIOLOGIC THERAPIST Antibody 3.0 0.0 - 19.9 Units 08/05/2017 10:36 AM CDT [facility] Comment: MARY Antibody Numeric Result Interpretation: ?<20.0 Units: ??Negative ?20.0 - 39.0 Units: ??Weakly Positive ?>39.0 Units: ??Positive ? Blood BLOOD SPECIMEN / Unknown Lab Venipuncture / Unknown 08/03/2017 10:43 AM CDT 08/03/2017 11:20 AM CDT Bebeto Braga MD LAB - CHEMISTRY ARMANDO ROMO Performing Organization Address [facility]/ZIP Co de Phone Number [address] [phone] * C-REACTIVE PROTEIN (08/03/2017 10:43 AM CDT) [facility] C-Reactive Protein <0.5 <=0.5 mg/dL 08/03/2017 11:39 AM CDT [facility] Blood BLOOD SPECIMEN / Unknown Lab Venipuncture / Unknown 08/03/2017 10:43 AM CDT 08/03/2017 11:15 AM CDT Bebeto Braga MD LAB - CHEMISTRY ARMANDO ROMO Performing Organization Address [facility] Co de Phone Number [facility] [address] [place] [address] * (ABNORMAL) JAN BLOOD SCREEN W/REFLEX TITER (08/03/2017 10:43 AM CDT) [facility] JAN Positive(A ) 08/05/2017 5:11 PM CDT [facility] ([facility]) Comment: ? Negative ?? <1:80 ? Borderline ??1:80 ? Positive ?? >1:80 Blood BLOOD SPECIMEN / Unknown Lab Venipuncture / Unknown 08/03/2017 10:43 AM CDT 08/03/2017 11:15 AM CDT Narrative [facility] ([facility]) - 08/05/2017 5:11 PM CDT Performed at: ??01 - [facility] [address] [place], [place] ??[id number] Lace Roller Operator: Carlos Alberto Mullins PhD, Phone: ??[phone] Bebeto Braga MD LAB - CHEMISTRY ARMANDO ROMO Performing Organization Address [facility] Co de Phone Number [facility] ([facility]) [address] [place] [address], [facility] * (ABNORMAL) THYROID PEROXIDASE ANTIBODY (08/03/2017 10:43 AM CDT) Thyroid Peroxidase TPO Antibody 38(H) 0 - 34 IU/mL 08/04/2017 4:28 PM CDT [facility] ([facility]) Blood BLOOD SPECIMEN / Unknown Lab Venipuncture / Unknown 08/03/2017 10:43 AM CDT 08/03/2017 11:19 AM CDT Narrative [facility] ([facility]) - 08/04/2017 4:28 PM CDT Performed at: ?? - [facility] ??[id number] Lace Roller Operator: Carlos Alberto Mullins PhD, Phone: ??[phone] Bebeto Braga MD LAB - CHEMISTRY ARMANDO ROMO Performing Organization Address [facility] de Phone Number [facility] ([facility]) [address] [place] [address] * THYROGLOBULIN ANTIBODY (08/03/2017 10:43 AM CDT) Thyroglobulin Antibody <1.0 0.0 - 0.9 IU/mL 08/04/2017 4:28 PM CDT [facility] Comment:Thyroglobulin Antibo dy measured by [employer] Blood BLOOD SPECIMEN / Unknown Lab Venipuncture / Unknown 08/03/2017 10:43 AM CDT 08/03/2017 11:19 AM CDT Narrative [facility] ([facility]) - 08/04/2017 4:28 PM CDT Performed at: ?? - [facility] ??[id number] Lace Roller Operator: Carlos Alberto Mullins PhD, Phone: ??[phone] Bebeto Braga MD LAB - CHEMISTRY ARMANDO ROMO Performing Organization Address [facility]/ZIP Co de Phone Number [facility] ([facility]) [address] [place] [address], [facility] * HISTONE ANTIBODY (08/03/2017 10:43 AM CDT) [facility] Anti-Histone Antibody 0.7 0.0 - 0.9 Units 08/09/2017 12:18 PM CDT [facility] ([facility]) Comment: ? Negative ?<1.0 ? Weak Positive ?1.0 - 1.5 ? Moderate Positive ??1.6 - 2.5 ? Strong Positive ? >2.5 Blood BLOOD SPECIMEN / Unknown Lab Venipuncture / Unknown 08/03/2017 10:43 AM CDT 08/03/2017 11:20 AM CDT [facility]) - 08/09/2017 12:18 PM CDT Performed at: ??01 - [address] ??[id number] Lace Roller Operator: Beitto Espino MD, Phone: ??[phone] Bebeto Braga MD LAB - CHEMISTRY ARMANDO ROMO [facility] Organization Address City/State/[facility] Co de Phone Number [facility] ([facility]) [address] [place] [address], [facility] * COMPLEMENT TOTAL (08/03/2017 10:43 AM CDT) [facility] Complement Total CH50 50 42 - 60 U/mL 08/04/2017 3:22 PM CDT [facility]) Blood BLOOD SPECIMEN / Unknown Lab Venipuncture / Unknown 08/03/2017 10:43 AM CDT 08/03/2017 11:14 AM CDT Narrative [facility]) - 08/04/2017 3:22 PM CDT Performed at: ??01 - [place] [id number] [place], [place] ??[id number] Lace Roller Operator: Carlos Alberto Mullins PhD, Phone: ??[phone] Bebeto Braga MD LAB - CHEMISTRY RAMANDO ROMO Performing Organization Address [facility]/ZIP Co de Phone Number [facility] ([facility]) [address] [place] [address] * SS-B (SJOGRENS'S) ANTIBODY (08/03/2017 10:43 AM CDT) [facility] SS-B LA Antibody 4.2 0.0 - 19.9 Units 08/05/2017 10:34 AM CDT [facility] Comment: MARY Antibody Numeric Result Interpretation: ?<20.0 Units: ??Negative ?20.0 - 39.0 Units: ??Weakly Positive ?>39.0 Units: ??Positive ? Blood BLOOD SPECIMEN / Unknown Lab Venipuncture / Unknown 08/03/2017 10:43 AM CDT 08/03/2017 11:15 AM CDT Bebeto Braga MD LAB - CHEMISTRY ARMANDO ROMO Performing Organization Address [facility] Co de Phone Number [address] [phone] * SS-A (SJOGREN'S) ANTIBODY (08/03/2017 10:43 AM CDT) [facility] SS-A (Ro) Antibody 2.3 0.0 - 19.9 Units 08/05/2017 10:34 AM CDT [facility] Comment: MARY Antibody Numeric Result Interpretation: ?<20.0 Units: ??Negative ?20.0 - 39.0 Units: ??Weakly Positive ?>39.0 Units: ??Positive ? Blood BLOOD SPECIMEN / Unknown Lab Venipuncture / Unknown 08/03/2017 10:43 AM CDT 08/03/2017 11:15 AM CDT Bebeto Braga MD LAB - CHEMISTRY ARMANDO ROMO Performing Organization Address [facility] Co de Phone Number [address] [phone] * SCLERODERMA 70 (SCL) ANTIBODY (08/03/2017 10:43 AM CDT) SCL-70 Antibody 3.1 0.0 - 19.9 Units 08/05/2017 10:34 AM CDT [facility] Comment: MARY Antibody Numeric Result Interpretation: ?<20.0 Units: ??Negative ?20.0 - 39.0 Units: ??Weakly Positive ?>39.0 Units: ??Positive ? Blood BLOOD SPECIMEN / Unknown Lab Venipuncture / Unknown 08/03/2017 10:43 AM CDT 08/03/2017 11:15 AM CDT Bebeto Braga MD LAB - CHEMISTRY ARMANDO ROMO Performing Organization Address City/[facility]/ZIP Co de Phone Number [address] [phone] * ALDOLASE (08/03/2017 10:43 AM CDT) Aldolase 4.5 3.3 - 10.3 U/L 08/04/2017 3:22 PM CDT [facility] ([facility]) Blood BLOOD SPECIMEN / Unknown Lab Venipuncture / Unknown 08/03/2017 10:43 AM CDT 08/03/2017 11:16 AM CDT Narrative [facility] ([facility]) - 08/04/2017 3:22 PM CDT Performed at: ??01 - [facility] [address] ??[id number] Lace Roller Operator: Carlos Alberto Mullins PhD, Phone: ??[phone] Bebeto Braga MD LAB - CHEMISTRY ORDE DEMETRIUS Performing Organization Address City/[facility]/ZIP Co de Phone Number [facility] ([facility]) [address] [place] [address] * CULTURE URINE (08/03/2017 10:43 AM CDT) Culture Urine No growth (<1,000 CFU/mL) AJ 08/04/2017 2:36 PM CDT [facility] Urine URINE SPECIMEN OBTAINED BY CLEAN CATCH PROCEDURE / Unknown Collection / Unknown 08/03/2017 10:43 AM CDT 08/03/2017 11:18 AM CDT Bebeto Braga MD LAB - MICROBIOLOGY O RDERABLES Performing Organization Address City/[facility] Co de Phone Number [facility] [address] [phone] * ERYTHROCYTE SEDIMENTATION RATE (08/03/2017 10:43 AM CDT) Erythrocyte Sedimentation Rate Westergren 3 0 - 20 MM/HR 08/03/2017 11:34 AM CDT [facility] Blood BLOOD SPECIMEN / Unknown Lab Venipuncture / Unknown 08/03/2017 10:43 AM CDT 08/03/2017 11:15 AM CDT Bebeto Braga MD LAB - HEMATOLOGY ORD ERABLES Performing Organization Address City/[facility]/ZIP Co de Phone Number [address] [phone] * COMPLEMENT C4 (08/03/2017 10:43 AM CDT) Complement C4 25 15 - 57 mg/dL 08/03/2017 11:46 AM CDT [facility] Blood BLOOD SPECIMEN / Unknown Lab Venipuncture / Unknown 08/03/2017 10:43 AM CDT 08/03/2017 11:14 AM CDT Bebeto Braga MD LAB - SEROLOGY ORDER DEBBI [address] [phone] * LDH BLOOD (08/03/2017 10:43 AM CDT) Pathologist [facility] LDH Total 127 125 - 243 Units/L 08/03/2017 11:51 AM CDT [facility] Blood BLOOD SPECIMEN / Unknown Lab Venipuncture / Unknown 08/03/2017 10:43 AM CDT 08/03/2017 11:18 AM CDT Bebeto Braga MD LAB - CHEMISTRY ARMANDO ROMO Performing Organization Address [facility]/ZIP Co de Phone Number [address] [phone] * CK BLOOD (08/03/2017 10:43 AM CDT) [facility] CK Total 43 30 - 200 Units/L 08/03/2017 11:51 AM CDT [facility] Blood BLOOD SPECIMEN / Unknown Lab Venipuncture / Unknown 08/03/2017 10:43 AM CDT 08/03/2017 11:18 AM CDT Bebeto Braga MD LAB - CHEMISTRY ARMANDO ROMO Performing Organization Address [facility]/ZIP Co de Phone Number [address] [phone] * COMPLEMENT C3 (08/03/2017 10:43 AM CDT) [facility] Complement C3 124 82 - 193 mg/dL 08/03/2017 11:46 AM CDT [facility] Blood BLOOD SPECIMEN / Unknown Lab Venipuncture / Unknown 08/03/2017 10:43 AM CDT 08/03/2017 11:14 AM CDT Bebeto Braga MD LAB - CHEMISTRY ARMANDO ROMO [address] [phone] Care Teams [facility] Officer Relationship Specialty Start Date End Date Daisy Rubio MD [address] [id number] PCP - General Family Medicine 10/26/23
== END 2024-05-12 11:40 | disposition home or self-care (01) ==
PROVIDERS: PCP Family Medicine; Visit Provider Internal Medicine
DX: E03.9 Hypothyroidism, unspecified (principal); E07.9 Disorder of thyroid, unspecified; I10 Essential (primary) hypertension
CPT/HCPCS: 36415; 84439; 84443

== ENCOUNTER 2024-06-02 09:28 | Outpatient (CLI) | payer OTHER, SELFPAY ==
--- NOTE | ~2024-06-02 | XR_ITS ---
EXAMINATION: XR chest 2V Exam Date/Time: 06/02/2024 9:35 EDGE WORKER HISTORY: R05.9 - Cough, unspecified Comparison: 04/23/2021. RESULT: Lines, tubes, and devices: None. Lungs and pleura: Biapical pleural scarring, otherwise clear. Cardiomediastinal silhouette: Stable. Other: No acute osseous or upper abdominal finding. IMPRESSION: No acute cardiopulmonary process. Reviewed, dictated and finalized at location K. WORKER
--- OUTSIDE RECORDS SUMMARY | 2024-06-02 09:31 | XMS_ITS | Patient Health Summary ---
Author Organization [facility] Address [address] [place] [address] Care Team Providers Care Power Crane Operator Name Role Phone Daisy Rubio MD Primary Care Provider [phone] Note from [facility],non-owned Affiliates and Associated Physician Practices is amultiple site organization consisting of ambulatory clinics and hospital sitesin [place], [place], [place] and [place]. This disclosure is being madepursuant to the Care Everywhere program and may not contain all informatio navailable regarding this patient. Last updated 18.[facility] Allergies * Levofloxacin(Other) * Hydrocodone-Acetaminophen(BEATER ENGINEER Dysfunction) * Metoprolol(Headache) -Low Criticality * Tramadol(Other) [...] * vitamin D, ergocalciferol, (Drisdol) 1.25 MG (26855 UT) capsule(Started 11/04/2023) Take 1 (one) capsule by mouth every 7 days * losartan (Cozaar) 50 MG tablet(Started 05/07/2024) Take 1 (one) tablet by mouth once daily * amLODIPine (Norvasc) 5 MG tablet(Started 04/30/2024) Take 1 (one) tablet by mouth once daily * hydroCHLOROthiazide (Hydrodiuril) 25 MG tablet(Started 05/09/2024) Take 1 (one) tablet by mouth once daily Active Problems No known active problems Social [...] Answer Date Recorded Patient Health Questionnaire-2 Score 2 05/23/2024 Sex and Gender Information Value Date Recorded Sex Assigned at Female 10/05/2023 4:21 PM CDT Gender Identity Not on file Sexual Orientation Not on file Last Filed Vital Signs Vital Sign Reading Time Taken Comments Blood Pressure 152/96 11/17/2023 12:15 PM CDT Pulse 70 11/17/2023 12:15 PM CDT Temperature 35.8 C (96.5 F) 11/17/2023 10:42 AM CDT Respiratory Rate 17 11/17/2023 12:15 PM CDT Oxygen Saturation 100% 11/17/2023 12:15 PM CDT Inhaled Oxygen Concentration - - Weight 76.7 kg (169 lb) 12/05/2023 8:25 AM CDT Height 162.6 cm (5' 4 ) 12/05/2023 8:25 AM CDT Body Mass Index 29.01 12/05/2023 8:25 AM CDT Procedures * IMAGING/RADIOLOGY/XRAY RESULTS ORDER(Performed 11/18/2023) * ENDOTRACHEAL TUBE NOTE(Performed 11/17/2023) * NV DRAIN/INJECT LARGE JOINT/BURSA(Performed 11/17/2023) Performed for Tear of left rotator cuff, unspecified tear extent, unspecified whether traumatic * NV SHOULDER ARTHROSCOPY(Performed 11/17/2023) Performed for Tear of left rotator cuff, unspecified tear extent, unspecified whether traumatic * NV SHOULDER ARTHROSCOPY/SURGERY(Performed 11/17/2023) Performed for Tear of [...] multiple sites, Positive JAN (antinuclear antibody) * MECHANICAL TECHNICAL SERVICE SPECIALIST ANTIBODY(Performed 08/03/2017) Performed for Arthralgia of multiple [...] PERFORMABLE (11/17/2023 10:00 AM CDT) Narrative Leida Fitzpatrick, BROADCAST MAINTENANCE TECHNICIAN-DIE SINKER - 11/17/2023 10:00 AM CDT Leida Fitzpatrick APRN-CRNA 11/17/2023 10:01 AM Endotracheal Tube Placement: Patient Location: OR. Intubation Event Date/Time: 11/17/2023 9:24 AM Procedure: intubation (81952) Procedure Section: Sedation: under general anesthesia. Indications for Airway Management: anesthesia Induction: modified rapid sequence Patient Position: supine Mask Ventilation: not attempted. Blade Type: Video (Syed) Blade Size: 3 Laryngoscopy View: grade 1 (full cords) Intubation Adjuncts: stylet and video laryngoscope Tube: endotracheal tube Placement: oral Tube type: cuff - inflated Tube Size (MM): 7 Depth of Insertion (CM): 20 Measured From: teeth Cuff volume (mL): 7 Cuff Inflated With: air Number of Attempts: 1. Placement Verified By: direct visualization, bilateral breath sounds, chest auscultation and CO2 monitor Tube secured with: adhesive tape. Dentition unchanged? Yes Difficult Airway? No. Procedure Start Time: 11/17/2023 9:24 AM. Staff Section Anesthesia Provider: Leida Fitzpatrick APRN-CRNA, Performed the procedure Naren Riggins MD GENERAL ANESTHESIA O RDERABLES * Peripheral Nerve Block (11/17/2023 8:39 AM CDT) Narrative Naren Riggins MD - 11/17/2023 8:39 AM CDT Naren Riggins MD 11/17/2023 8:41 AM Peripheral Nerve Block Procedure: Peripheral Nerve Block Patient Location: Pre-op Preprocedure Section: Indications: at surgeon's request and postop pain management. Pre-anesthetic Checklist: Patient identified, IV Checked, Site examined and clear, Risks and benefits discussed, Surgical consent verified, Monitors and equipment, Time-out performed, Informed consent obtained, Pre-op evaluation done, Questions answered/anesthesia questions answered, Allergies reviewed and Removal hand/wrist jewelry Monitors: BP, Pulse Ox and EKG. Patient Condition: sedated, meaningful contact maintained throughout procedure Patient Position: supine Patient Sedated? Yes Sedation Type: mild Sedation Agents: fentaNYL (PF) (SUBLIMAZE) injection - Intravenous 100 mcg - 11/17/2023 8:40:00 AM midazolam (VERSED) injection - Intravenous 2 mg - 11/17/2023 8:40:00 AM Procedure Section Laterality: left Block Performed: Interscalene Prep: Chloraprep Strerile Field: gloves, mask and hat/cap Skin localized with: lidocaine (XYLOCAINE MPF) 1 % injection - Infiltration 1 mL - 11/17/2023 8:40:00 AM Needle Type: Echogenic insulated Needle Gauge: 22 Needle Length: 80 mm Catheter? No Ultrasound Guided? Yes Technique: in plane Visualization: Preliminary scan performed, Important anatomical structures identified, Needle tip visualized throughout the procedure, Target identified, No intraneural or intravascular puncture occurred, Ultrasound image in chart, Local visualized surrounding nerve on ultrasound and Hydrodissection utilized Injection was made incrementally with constant monitoring and aspirations every 5 mL's Injection Assessment: Slow fractionated injection Block Agents or Additives used? Yes Block agents used: bupivacaine 0.5% - EPINEPHrine 1:200,000 (PF) injection - Infiltration 30 mL - 11/17/2023 8:40:00 AM Procedure Tolerance: tolerated well and no immediate complications Procedure Start Time: 11/17/2023 8:41 AM. Procedure End Time: 11/17/2023 8:41 AM. Procedure Total Time: 0 minutes. Staff Section Anesthesia Provider: Naren Riggins MD, Performed the procedure Naren Riggins MD GENERAL ANESTHESIA O RDERABLES * EKG 12-LEAD (10/26/2023 7:35 AM CDT) Ventricular Rate 70 BPM [facility] Atrial Rate 70 BPM [facility] P-R Interval 148 ms [facility] QRS Duration ms 84 ms [facility] Q-T Interval ms 404 ms [facility] QTC Calculation (Bezet) 436 ms [facility] Calculated P [place] 72 degrees [facility] Calculated R [place] 62 degrees [facility] Calculated T [place] 46 degrees [facility] Interpretation EKG Normal sinus rhythm Normal ECG No previous ECGs available Confirmed by ANGELO MACIAS, ANAMIKA ([id number]) on 10/27/2023 10:01:34 AM [facility] 10/26/2023 7:35 AM CDT 10/27/2023 10:01 AM CDT Kenya Up DO ECG ORDERABLES [facility] * (ABNORMAL) CBC W AUTO DIFFERENTIAL (10/26/2023 7:26 AM CDT) Only the most recent of2 resultswithin the time period is included. WBC 6.4 4.0 - 10.7 x10E9/L 10/26/2023 7:50 AM CDT [facility] RBC Count 4.12 3.90 - 5.20 x10E12/L 10/26/2023 7:50 AM CDT [facility] Hemoglobin 11.1(L) 11.9 - 15.8 g/dL 10/26/2023 7:50 AM CDT [facility] Hematocrit 34.7(L) 34.8 - 46.1 % 10/26/2023 7:50 AM CDT [facility] MCV 84.2 80.0 - 98.0 fL 10/26/2023 7:50 AM CDT [facility] MCH 26.9 26.7 - 33.6 pg 10/26/2023 7:50 AM CDT [facility] MCHC 32.0 31.7 - 36.3 g/dL 10/26/2023 7:50 AM CDT [facility] RDW-CV 13.1 11.3 - 14.8 % 10/26/2023 7:50 AM CDT [facility] Platelet Count 235 150 - 420 x10E9/L 10/26/2023 7:50 AM CDT [facility] MPV 10.5 7.8 - 11.4 fL 10/26/2023 7:50 AM CDT [facility] Neutrophil % 35.3(L) 41.0 - 74.0 % 10/26/2023 7:50 AM CDT [facility] Lymphocyte % 46.7 17.0 - 47.0 % 10/26/2023 7:50 AM CDT [facility] Monocyte % 12.1(H) 3.0 - 11.0 % 10/26/2023 7:50 AM CDT [facility] Eosinophil % 5.2 0.0 - 7.0 % 10/26/2023 7:50 AM CDT [facility] Basophil % 0.5 0.0 - 1.6 % 10/26/2023 7:50 AM CDT [facility] Immature Granulocytes % 0.2 0.0 - 1.0 % 10/26/2023 7:50 AM CDT [facility] Neutrophil Absolute 2.26 1.60 - 7.50 x10E9/L 10/26/2023 7:50 AM CDT [facility] Lymphocyte Absolute 2.98 1.00 - 4.40 x10E9/L 10/26/2023 7:50 AM CDT [facility] Monocyte Absolute 0.77 0.15 - 1.00 x10E9/L 10/26/2023 7:50 AM CDT [facility] Eosinophil Absolute 0.33 0.00 - 0.60 x10E9/L 10/26/2023 7:50 AM CDT [facility] Basophil Absolute 0.03 0.00 - 0.13 x10E9/L 10/26/2023 7:50 AM CDT [facility] Blood BLOOD SPECIMEN / Unknown Venipuncture / Unknown 10/26/2023 7:26 AM CDT 10/26/2023 7:32 AM CDT Johanny Gan BROADCAST MAINTENANCE TECHNICIAN-ZINC PLATE CUTTER LAB - HEMATOLOGY ORDERABLES [facility] [address] [place] [address] * (ABNORMAL) COMPREHENSIVE METABOLIC PANEL (10/26/2023 7:26 AM CDT) Only the most recent of2 resultswithin the time period is included. Glucose 92 70 - 105 mg/dL 10/26/2023 7:56 AM CDT [facility] Sodium 138 136 - 145 mmol/L 10/26/2023 7:56 AM CDT [facility] Potassium 4.0 3.5 - 5.1 mmol/L 10/26/2023 7:56 AM CDT [facility] Chloride 103 98 - 107 mmol/L 10/26/2023 7:56 AM CDT [facility] CO2 29 22 - 29 mmol/L 10/26/2023 7:56 AM CDT [facility] Calcium 9.6 8.4 - 10.4 mg/dL 10/26/2023 7:56 AM CDT [facility] Anion Gap 6 6 - 16 mmol/L 10/26/2023 7:56 AM CDT [facility] BUN 12 5.3 - 18.7 mg/dL 10/26/2023 7:56 AM CDT [facility] Creatinine 0.85 0.57 - 1.11 mg/dL 10/26/2023 7:56 AM CDT [facility] Alkaline Phosphatase 86 40 - 150 U/L 10/26/2023 7:56 AM CDT [facility] ALT 32 0 - 55 U/L 10/26/2023 7:56 AM CDT [facility] AST 28 5 - 34 U/L 10/26/2023 7:56 AM CDT [facility] Protein Total 7.1 6.4 - 8.3 gm/dL 10/26/2023 7:56 AM CDT [facility] Albumin 3.7 3.4 - 5.0 gm/dL 10/26/2023 7:56 AM CDT [facility] Bilirubin Total 0.2 0.2 - 1.2 mg/dL 10/26/2023 7:56 AM T [facility] eGFR by CKD-EPI 84(L) >=90 mL/min/1.7 3 m2 10/26/2023 7:56 AM CDT [facility] Blood BLOOD SPECIMEN / Unknown Venipuncture / Unknown 10/26/2023 7:26 AM CDT 10/26/2023 7:32 AM CDT Johanny Gan APRN-ZINC PLATE CUTTER LAB - CHEMISTRY O RDERABLES Performing Organization Address City/[facility]/ZIP Co de Phone Number [facility] [address] [place] [phone] * XR CERVICAL SPINE 2 OR 3VW (07/29/2023 11:39 AM CDT) Narrative [facility] [address] - 07/29/2023 11:39 AM CDT Please see progress note in Epic for results. Daisy Pedro PA-C DIAGNOSTIC IMAGING O RDERABLES [facility] [address] * XR SHOULDER LEFT 2VW OR MORE (07/29/2023 11:29 AM CDT) Narrative [facility] [address] - 07/29/2023 11:29 AM CDT Please see progress note in Epic for results. Daisy Pedro PA-C DIAGNOSTIC IMAGING O RDERABLES [facility] [address] * XR HIPS BILATERAL 2 VW W AP PELVIS (05/06/2022 3:05 PM SELF CONTAINED BEHAVIOR UNIT TEACHER) Anatomical Region Laterality Modality Pelvis, Lower Extremity Radiogra phic Imaging 05/06/2022 3:10 PM SELF CONTAINED BEHAVIOR UNIT TEACHER Impressions 05/06/2022 3:11 PM SELF CONTAINED BEHAVIOR UNIT TEACHER IMPRESSION: 1. No acute fracture or osseous abnormality in the hips or pelvis. 2. Minimal sclerosis at the inferior margin of the left sacroiliac joint. > Interpreting Provider: Daisy Marquez MD on 05/06/2022 3:11 PM Narrative 05/06/2022 3:11 PM SELF CONTAINED BEHAVIOR UNIT TEACHER PROCEDURE: XR PELVIS W BILAT HIP 2VW, DATE/TIME OF EXAM: 05/06/2022 3:05 PM, LOCATION [facility] INDICATION: M06.09: Rheumatoid arthritis without rheumatoid factor, multiple sites ([facility]) M45.0: Ankylosing spondylitis of multiple sites in spine ([facility]) M46.1: Sacroiliitis, not elsewhere classified ([facility]) G47.01: Insomnia due to medical condition ADDITIONAL [...] 2VW, DATE/TIME OF EXAM: 33:05 PM, LOCATION [facility] INDICATION: M06.09: Rheumatoid arthritis without rheumatoid factor, multiple sites ([facility]) M45.0: Ankylosing spondylitis of multiple sites in spine ([facility]) M46.1: Sacroiliitis, not elsewhere classified ([facility]) G47.01: Insomnia due to medical condition ADDITIONAL [...] RDERABLES * XR FOOT 3+ VW RIGHT [[id number]] (08/03/2017 11:01 AM CDT) Anatomical Region Laterality Modality Ankle / Foot Radiographic Saskia ging 08/03/2017 11:4 3 AM CDT Impressions 08/03/2017 11:45 AM CDT IMPRESSION: Normal bilateral hand and foot radiographs. This report was electronically signed by TEJINDER LOVE MD on 08/03/2017 11:45 AM . Narrative 08/03/2017 11:45 [...] appears normal. The soft tissues are normal. Procedure Note Tejinder [...] RDERABLES * XR FOOT 3+ VW LEFT [[id number]] (08/03/2017 11:01 AM CDT) Anatomical Region Laterality Modality Ankle / Foot Radiographic Saskia ging 08/03/2017 11:4 3 AM CDT Impressions 08/03/2017 11:45 AM CDT IMPRESSION: Normal bilateral hand and foot radiographs. This report was electronically signed by TEJINDER LOVE MD on 08/03/2017 11:45 AM . Narrative 08/03/2017 11:45 [...] appears normal. The soft tissues are normal. Procedure Note Tejinder [...] RDERABLES * XR HAND 3+ VW RIGHT [[id number]] (08/03/2017 11:01 AM CDT) Anatomical Region Laterality Modality Wrist / Hand Radiographic Saskia ging 08/03/2017 11:4 3 AM CDT Impressions 08/03/2017 11:45 AM CDT IMPRESSION: Normal bilateral hand and foot radiographs. This report was electronically signed by TEJINDER LOVE MD on 08/03/2017 11:45 AM . Narrative 08/03/2017 11:45 [...] appears normal. The soft tissues are normal. Procedure Note Tejinder [...] RDERABLES * XR HAND 3+ VW LEFT [[id number]] (08/03/2017 11:01 AM CDT) Anatomical Region Laterality Modality Wrist / Hand Radiographic Saskia ging 08/03/2017 11:4 3 AM CDT Impressions 08/03/2017 11:45 AM CDT IMPRESSION: Normal bilateral hand and foot radiographs. This report was electronically signed by TEJINDER LOVE MD on 08/03/2017 11:45 AM . Narrative 08/03/2017 11:45 [...] appears normal. The soft tissues are normal. Procedure Note Tejinder [...] - 29 IU/mL 08/05/2017 10:36 AM CDT [facility] Comment: dsDNA Antibody Numeric Result Interpretation: 0 - 29 IU/mL: Negative 30 - 75 IU/mL: Borderline >75 IU/mL: Positive Blood BLOOD SPECIMEN / Unknown Lab Venipuncture / Unknown 08/03/2017 10:43 AM CDT 08/03/2017 11:20 AM CDT Bebeto Braga MD LAB - SEROLOGY ORDER DEBBI Performing Organization Address City/State/[facility] Co de Phone Number [facility] [address] [phone] * (ABNORMAL) LINO STAINING PATTERNS REFLEXED (08/03/2017 10:43 AM CDT) Speckled Pattern 1:320(H) 08/05/2017 5:11 PM CDT [facility] ([facility]) Note Comment 08/05/2017 5:11 PM CDT [facility] ([facility]) Blood BLOOD SPECIMEN / Unknown Lab Venipuncture / Unknown 08/03/2017 10:43 AM CDT 08/03/2017 11:15 AM CDT Narrative [facility] ([facility]) - 08/05/2017 5:11 PM CDT A positive JAN result may occur in healthy individuals (low titer) or be associated with a variety of diseases. See interpretation chart which is not all inclusive: Pattern Antigen Detected Suggested Disease Association Homogeneous DNA(ds,ss), SLE - High titers Nucleosomes, Histones Drug-induced SLE Speckled Sm, MECHANICAL TECHNICAL SERVICE SPECIALIST, SCL-70, SLE,MCTD,PSS (diffuse form), SS-A/SS-B Sjogrens Nucleolar SCL-70, PM-1/SCL High titers Scleroderma, PM/DM Centromere Centromere PSS (limited form) w/Crest syndrome variable Nuclear Dot Sp100,c50-nqfbcl Primary Biliary Cirrhosis Nuclear GP210, Primary Biliary Cirrhosis Membrane magda A,B,C Bebeto Braga MD LAB - PATHOLOGY/CYTO LOGY ORDERABLES [facility] ([facility]) [address] [place] [address], [facility] * (ABNORMAL) URINALYSIS REFLEX TO MICROSCOPIC NO CULTURE (08/03/2017 10:43 AM T) Color UA Yellow Straw, Yellow, Colorless, Light Yellow 08/03/2017 11:24 AM [facility] Clarity UA Clear Clear 08/03/2017 11:24 AM [facility] Specific [place] UA 1.010 1.001 - 1.030 08/03/2017 11:24 AM [facility] pH UA 5.0 5.0 - 8.0 08/03/2017 11:24 AM [facility] Protein UA Negative <=20 mg/dL 08/03/2017 11:24 AM [facility] Glucose UA Negative Negative mg/dL 08/03/2017 11:24 AM [facility] Ketone UA Negative Negative mg/dL 08/03/2017 11:24 AM [facility] Bilirubin UA Negative Negative mg/dL 08/03/2017 11:24 AM [facility] Blood UA Negative Negative 08/03/2017 11:24 AM [facility] Nitrite UA Negative Negative 08/03/2017 11:24 AM [facility] Leukocyte Esterase Negative Negative 08/03/2017 11:24 AM [facility] Urobilinogen UA <2.0 <2.0 mg/dL 8 11:24 AM [facility] RBC UA <1 0 - 8 /HPF 08/03/2017 11:24 AM [facility] WBC UA <1 0 - 2 /HPF 08/03/2017 11:24 AM [facility] Bacteria UA Rare Rare, Occasional, None /HPF 08/03/2017 11:24 AM [facility] Squamous Epithelial Cells UA 1 0 - 1 /HPF 08/03/2017 11:24 AM CDT [facility] Mucus UA Rare(A) None /LPF 08/03/2017 11:24 AM CDT [facility] Urine URINE SPECIMEN OBTAINED BY CLEAN CATCH PROCEDURE / Unknown Collection / Unknown 08/03/2017 10:43 AM CDT 08/03/2017 11:15 AM CDT Bebeto Braga MD LAB - URINALYSIS ORD HARSHAL Performing Organization Address [facility] Co de Phone Number [address] [phone] * DWYER (SM) ANTIBODY MARY (08/03/2017 10:43 AM CDT) Dwyer Antibody 5.1 0.0 - 19.9 Units 08/05/2017 10:36 AM CDT [facility] Comment: MARY Antibody Numeric Result Interpretation: <20.0 Units: Negative 20.0 - 39.0 Units: Weakly Positive >39.0 Units: Positive Blood BLOOD SPECIMEN / Unknown Lab Venipuncture / Unknown 08/03/2017 10:43 AM CDT 08/03/2017 11:20 AM CDT Bebeto Braga MD LAB - CHEMISTRY ARMANDO ROMO Performing Organization Address [facility] de Phone Number [address] [phone] * MECHANICAL TECHNICAL SERVICE SPECIALIST ANTIBODY (08/03/2017 10:43 AM CDT) SM/MECHANICAL TECHNICAL SERVICE SPECIALIST Antibody 3.0 0.0 - 19.9 Units 08/05/2017 10:36 AM CDT [facility] Comment: MARY Antibody Numeric Result Interpretation: <20.0 Units: Negative 20.0 - 39.0 Units: Weakly Positive >39.0 Units: Positive Blood BLOOD SPECIMEN / Unknown Lab Venipuncture / Unknown 08/03/2017 10:43 AM CDT 08/03/2017 11:20 AM CDT Bebeto Braga MD LAB - CHEMISTRY ARMANDO ROMO [address] [phone] * C-REACTIVE PROTEIN (08/03/2017 10:43 AM CDT) [facility] C-Reactive Protein <0.5 <=0.5 mg/dL 08/03/2017 11:39 AM CDT [facility] Blood BLOOD SPECIMEN / Unknown Lab Venipuncture / Unknown 08/03/2017 10:43 AM CDT 08/03/2017 11:15 AM CDT Bebeto Braga MD LAB - CHEMISTRY ARMANDO ROMO Performing Organization Address [facility]/ZIP Co de Phone Number [address] [phone] * (ABNORMAL) JAN BLOOD SCREEN W/REFLEX TITER (08/03/2017 10:43 AM CDT) [facility] JAN Positive(A ) 08/05/2017 5:11 PM CDT [facility] ([facility]) Comment: Negative <1:80 Borderline 1:80 Positive >1:80 Blood BLOOD SPECIMEN / Unknown Lab Venipuncture / Unknown 08/03/2017 10:43 AM CDT 08/03/2017 11:15 AM CDT Narrative [facility] ([facility]) - 08/05/2017 5:11 PM CDT Performed at: - [facility] [address] [place], [place] [id number] Boiler Repair Supervisor: Carlos Alberto Mullins PhD, Phone: [phone] Bebeto Braga MD LAB - CHEMISTRY ARMANDO ROMO Performing Organization Address City/[facility]/ZIP Co de Phone Number [facility] ([facility]) [address] [place] [address] * (ABNORMAL) THYROID PEROXIDASE ANTIBODY (08/03/2017 10:43 AM CDT) [facility] Thyroid Peroxidase TPO Antibody 38(H) 0 - 34 IU/mL 08/04/2017 4:28 PM CDT [facility] ([facility]) Blood BLOOD SPECIMEN / Unknown Lab Venipuncture / Unknown 08/03/2017 10:43 AM CDT 08/03/2017 11:19 AM CDT [facility] ([facility]) - 08/04/2017 4:28 PM CDT Performed at: [address] [place] [id number] Boiler Repair Supervisor: Carlos Alberto Mullins PhD, Phone: [phone] Bebeto Braga MD LAB - CHEMISTRY ARMANDO ROMO Performing Organization Address [facility] [[email or web address]] de Phone Number [facility] ([facility]) [address] [place] [phone] * THYROGLOBULIN ANTIBODY (08/03/2017 10:43 AM CDT) Thyroglobulin Antibody <1.0 0.0 - 0.9 IU/mL 08/04/2017 4:28 PM CDT [facility] ([facility]) Comment:Thyroglobulin Antibo dy measured by [employer] [place] [employer] Blood BLOOD SPECIMEN / Unknown Lab Venipuncture / Unknown 08/03/2017 10:43 AM CDT 08/03/2017 11:19 AM CDT [facility] ([facility]) - 08/04/2017 4:28 PM CDT Performed at: [address] [place] [id number] Boiler Repair Supervisor: Carlos Alberto Mullins PhD, Phone: [phone] Bebeto Braga MD LAB - CHEMISTRY ARMANDO ROMO Performing Organization Address [facility] [[email or web address]] de Phone Number [facility] ([facility]) [address] [place] [phone] * HISTONE ANTIBODY (08/03/2017 10:43 AM CDT) Anti-Histone Antibody 0.7 0.0 - 0.9 Units 08/09/2017 12:18 PM CDT [facility]) Comment: Negative <1.0 Weak Positive 1.0 - 1.5 Moderate Positive 1.6 - 2.5 Strong Positive >2.5 Blood BLOOD SPECIMEN / Unknown Lab Venipuncture / Unknown 08/03/2017 10:43 AM CDT 08/03/2017 11:20 AM CDT Narrative [facility] ([facility]) - 08/09/2017 12:18 PM CDT Performed at: [address] [place] [id number] Boiler Repair Supervisor: Betito Espino MD, Phone: [phone] Bebeto Braga MD LAB - CHEMISTRY ARMANDO ROMO Performing Organization Address City/[facility] Co de Phone Number [facility] ([facility]) [address] [place] [address] * COMPLEMENT TOTAL (08/03/2017 10:43 AM CDT) [facility] Complement Total CH50 50 42 - 60 U/mL 08/04/2017 3:22 PM CDT [facility]) Blood BLOOD SPECIMEN / Unknown Lab Venipuncture / Unknown 08/03/2017 10:43 AM CDT 08/03/2017 11:14 AM CDT [facility] ([facility]) - 08/04/2017 3:22 PM CDT Performed at: [address] [place] [address] [address] [place], [place] [id number] Boiler Repair Supervisor: Carlos Alberto Mullins PhD, Phone: [phone] Bebeto Braga MD LAB - CHEMISTRY ARMANDO ROMO Performing Organization Address [facility] [[email or web address]] de Phone Number [facility] ([facility]) [address] [place] [id number] * SS-B (SJOGRENS'S) ANTIBODY (08/03/2017 10:43 AM CDT) [facility] SS-B LA Antibody 4.2 0.0 - 19.9 Units 08/05/2017 10:34 AM CDT [facility] Comment: MARY Antibody Numeric Result Interpretation: <20.0 Units: Negative 20.0 - 39.0 Units: Weakly Positive >39.0 Units: Positive Blood BLOOD SPECIMEN / Unknown Lab Venipuncture / Unknown 08/03/2017 10:43 AM CDT 08/03/2017 11:15 AM CDT Bebeto Braga MD LAB - CHEMISTRY ARMANDO ROMO [address] [phone] * SS-A (SJOGREN'S) ANTIBODY (08/03/2017 10:43 AM CDT) SS-A (Ro) Antibody 2.3 0.0 - 19.9 Units 08/05/2017 10:34 AM CDT [facility] Comment: MARY Antibody Numeric Result Interpretation: <20.0 Units: Negative 20.0 - 39.0 Units: Weakly Positive >39.0 Units: Positive Blood BLOOD SPECIMEN / Unknown Lab Venipuncture / Unknown 08/03/2017 10:43 AM CDT 08/03/2017 11:15 AM CDT Bebeto Braga MD LAB - CHEMISTRY ARMANDO ROMO [address] [phone] * SCLERODERMA 70 (SCL) ANTIBODY (08/03/2017 10:43 AM CDT) Pathologist [facility] [place] SCL-70 Antibody 3.1 0.0 - 19.9 Units 08/05/2017 10:34 AM CDT [facility] Comment: MARY Antibody Numeric Result Interpretation: <20.0 Units: Negative 20.0 - 39.0 Units: Weakly Positive >39.0 Units: Positive Blood BLOOD SPECIMEN / Unknown Lab Venipuncture / Unknown 08/03/2017 10:43 AM CDT 08/03/2017 11:15 AM CDT Bebeto Braga MD LAB - CHEMISTRY ARMANDO ROMO [address] [phone] * ALDOLASE (08/03/2017 10:43 AM CDT) Aldolase 4.5 3.3 - 10.3 U/L 08/04/2017 3:22 PM CDT [facility] ([facility]) Blood BLOOD SPECIMEN / Unknown Lab Venipuncture / Unknown 08/03/2017 10:43 AM CDT 08/03/2017 11:16 AM CDT Narrative [facility] ([facility]) - 08/04/2017 3:22 PM CDT Performed at: [facility] - [facility] [address] [place], [place] [id number] Boiler Repair Supervisor: Carlos Alberto Mullins PhD, Phone: [phone] Bebeto Braga MD LAB - CHEMISTRY ARMANDO ROMO [facility] ([facility]) [address] [place] [address] * CULTURE URINE (08/03/2017 10:43 AM CDT) Pathologist [facility] [place] Culture Urine No growth (<1,000 CFU/mL) AJ 08/04/2017 2:36 PM CDT [facility] Urine URINE SPECIMEN OBTAINED BY CLEAN CATCH PROCEDURE / Unknown Collection / Unknown 08/03/2017 10:43 AM CDT 08/03/2017 11:18 AM CDT Bebeto Braga MD LAB - MICROBIOLOGY O RDERABLES Performing Organization Address City/[facility]/ZIP Co de Phone Number [facility] [address] [place] [address] [phone] * ERYTHROCYTE SEDIMENTATION RATE (08/03/2017 10:43 AM CDT) Erythrocyte Sedimentation Rate Westergren 3 0 - 20 MM/HR 08/03/2017 11:34 AM CDT [facility] Blood BLOOD SPECIMEN / Unknown Lab Venipuncture / Unknown 08/03/2017 10:43 AM CDT 08/03/2017 11:15 AM CDT Bebeto Braga MD LAB - HEMATOLOGY ORD ERABLES [address] [phone] * COMPLEMENT C4 (08/03/2017 10:43 AM CDT) Pathologist [facility] [place] Complement C4 25 15 - 57 mg/dL 08/03/2017 11:46 AM CDT [facility] Blood BLOOD SPECIMEN / Unknown Lab Venipuncture / Unknown 08/03/2017 10:43 AM CDT 08/03/2017 11:14 AM CDT Bebeto Braga MD LAB - SEROLOGY ORDER DEBBI [address] [phone] * LDH BLOOD (08/03/2017 10:43 AM CDT) [facility] LDH Total 127 125 - 243 Units/L 08/03/2017 11:51 AM CDT [facility] Blood BLOOD SPECIMEN / Unknown Lab Venipuncture / Unknown 08/03/2017 10:43 AM CDT 08/03/2017 11:18 AM CDT Bebeto Braga MD LAB - CHEMISTRY ORDAugusto ROMO [address] [phone] * CK BLOOD (08/03/2017 10:43 AM CDT) Pathologist [facility] CK Total 43 30 - 200 Units/L 08/03/2017 11:51 AM CDT [facility] Blood BLOOD SPECIMEN / Unknown Lab Venipuncture / Unknown 08/03/2017 10:43 AM CDT 08/03/2017 11:18 AM CDT Bebeto Braga MD LAB - CHEMISTRY [place] [address], [facility] [phone] * COMPLEMENT C3 (08/03/2017 10:43 AM CDT) Complement C3 124 82 - 193 mg/dL 08/03/2017 11:46 AM CDT [facility] Blood BLOOD SPECIMEN / Unknown Lab Venipuncture / Unknown 08/03/2017 10:43 AM CDT 08/03/2017 11:14 AM CDT Bebeto Braga MD LAB - CHEMISTRY ARMANDO ROMO Performing Organization Address City/State/[facility] Co de Phone Number [address] [phone] Care Teams Power Crane Operator Relationship Specialty Start Date End Date Daisy Rubio MD [address] [place] [address] PCP - General Family Medicine 10/26/23
--- OUTSIDE RECORDS SUMMARY | 2024-06-02 09:31 | XMS_ITS | Clinical Summary ---
Author Organization [facility] Address [address] [place] [address] Care Team Providers Care Information Technology Director Name Role Phone Daisy Rubio MD Primary Care Provider [phone] Source Comments [facility],non-owned Affiliates and Associated Physician Practices is amultiple site organization consisting of ambulatory clinics and hospital sitesin [place], [place], [place] and [place]. This disclosure is being madepursuant to the Care Everywhere program and may not contain all information available regarding this patient. Last updated 18.[facility] Allergies Active Allergy Reactions Criticality Noted Date Comments Levofloxacin Other 08/03/2017 Joint Pain Hydrocodone-Acetaminophen LEGISLATIVE ASSISTANT Dysfunction 08/03 Could not move or talk [...] Active vitamin D, ergocalciferol, (Drisdol) 1.25 MG (34680 UT) capsule Take 1 (one) capsule by mouth every 7 days 6 capsule 11/04/2023 Active losartan (Cozaar) 50 MG tablet Take 1 (one) tablet by mouth once daily 05/07/2024 Active amLODIPine (Norvasc) 5 MG tablet Take 1 (one) tablet by mouth once daily 04/30/2024 Active hydroCHLOROthiazi de (Hydrodiuril) 25 MG tablet Take 1 (one) tablet by mouth once daily 05/09/2024 Active Active Problems No known active problems Encounters Date Type Department Care Team Description 05/23/2024 8:00 AM 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 PROFESSIONAL 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 Office Visit [facility] [address] [facility], [address] [phone] Karen Myers MD Chronic left shoulder pain (Primary Dx); S/P arthroscopy of left shoulder, capsular release; Adhesive capsulitis of left shoulder from Last 3 Months Family History Medical History Relation Name Comments [...] 12/05/2023 8:25 AM CDT Plan of Treatment Health Maintenance Due Date Last Done Comments [...] 12/27/2023 ZOSTER VACCINE (1 of 2) 12/27/2023 SCREENING FOR DIABETES 10/25/2026 , 08/03/2017 DEPRESSION SCREENING Completed 05/23/2024, 07/29/2023 HIB VACCINE Aged Out No longer eligi [...] COMPREHENSIVE METABOLIC PANEL (10/26/2023 7:26 AM CDT) [facility] Glucose 92 70 - 105 mg/dL 10/26/2023 7:56 AM CDT [facility] Sodium 138 136 - 145 mmol/L 10/26/2023 7:56 AM CDT [facility] Potassium 4.0 3.5 - 5.1 mmol/L 10/26/2023 7:56 AM CDT [facility] Chloride 103 98 - 107 mmol/L 10/26/2023 7:56 AM CDT [facility] CO2 29 22 - 29 mmol/L 10/26/2023 7:56 AM CDT [facility] Calcium 9.6 8.4 - 10.4 mg/dL 10/26/2023 7:56 AM CDT [facility] Anion Gap 6 6 - 16 mmol/L 10/26/2023 7:56 AM CDT [facility] BUN 12 5.3 - 18.7 mg/dL 10/26/2023 7:56 AM CDT [facility] Creatinine 0.85 0.57 - 1.11 mg/dL 10/26/2023 7:56 AM CDT [facility] Alkaline Phosphatase 86 40 - 150 U/L 10/26/2023 7:56 AM CDT [facility] ALT 32 0 - 55 U/L 10/26/2023 7:56 AM CDT [facility] AST 28 5 - 34 U/L 10/26/2023 7:56 AM CDT [facility] Protein Total 7.1 6.4 - 8.3 gm/dL 10/26/2023 7:56 AM CDT [facility] Albumin 3.7 3.4 - 5.0 gm/dL 10/26/2023 7:56 AM CDT [facility] Bilirubin Total 0.2 0.2 - 1.2 mg/dL 10/26/2023 7:56 AM CDT [facility] eGFR by CKD-EPI 84(L) >=90 mL/min/1.7 3 m2 10/26/2023 7:56 AM CDT [facility] Blood BLOOD SPECIMEN / Unknown Venipuncture / Unknown 10/26/2023 7:26 AM CDT 10/26/2023 7:32 AM CDT Johanny Gan RV TECHNICIAN-ECOLOGICAL MODELER LAB - CHEMISTRY O RDERABLES [facility] [address] [place] [address] from Last 3 Months or Most Recently Relevant to Health Maintenance Care Teams Information Technology Director Relationship Specialty Start Date End Date Daisy Rubio MD [address] [place], [place] [id number] PCP - General Family Medicine 10/26/23
--- OUTSIDE RECORDS SUMMARY | 2024-06-02 09:31 | XMS_ITS | CONTINUITY OF CARE DOCUMENT ---
Author Name sujey rm Address Unknown Organization [facility] Address [address] [address] [facility] [address] [place] [address] Phone [phone] Care Team Providers Care Javascript Front End Developer Name Role Phone Gene MACIAS, Carroll Unavailable CASEY MACIAS, DOMINIK Unavailable CASEY MACIAS, DOMINIK Unavailable [phone] PROBLEMS Condition Status Date Provider Notes Palpitations active Brigitte Duong Chest pain completed - Carroll Mills MD hx of Shortness of breath active Carroll soler MD r/o Ischemia;neg nuc 15 active Carroll bonilla MD Headache active Carroll Mills MD Tobacco abuse active Carroll Mills MD HTN essential active Carroll Mills MD Dizziness;will mosley active Carroll Mills MD Chest pain-type to be determined active Carroll Mills MD LVH active Carroll Mills MD Anxiety active Carroll Mills MD Health maintenance examination active Yuriy Mills MD ENCOUNTERS Date Type Provider Location Encounter Diag nosis - In-person encounter Office Visit Carroll Mills MD [place] [facility] hx of Shortness of breathHealth maintenance examination - In-person encounter Office Visit Carroll Mills MD [place] [facility] Chest painr/o Ischemia;neg nuc 15HeadacheTobacco abuseHTN [...] Tabares respiratory rate E&M 16 /min Vaishali dleonte Tabares Body Mass Index (Ratio) 20.03 kg/m2 [...] Payer name Policy type / Coverage type [place] [employer] party ID [facility] [id number] TREATMENT PLAN Date Name Performer Cardiology Carroll [...] WITH T SH, 3RD GENERATION DLCO - [id number] FRC - 54297 FVC - 17723 HISTORY OF PROCEDURES Procedure Date Procedure Name Provider Procedure Notes S tatus SNOMED-CT: [id number] Current Medications Documented Carroll Mills MD completed Mobile Cardiac Telem etry - Tech Carroll Mills MD completed Mobile Cardiac Telem etry - Prof Carroll Mills MD completed BLOOD COUNT HEMOGLOBIN Carroll Mills MD completed FVC - 88870 Carroll Mills MD complet ed FR - 80104 Carroll Mills MD complet ed DLCO - 43903 Carroll Mills MD comple amie SNOMED-CT: [id number] Current Medications Documented Carroll Mills MD completed Stress EKG Torey Bermudez MD completed Cardiolite, 2 units Carroll Mills MD completed SPECT Images Barry Zhang MD compl eted
--- OUTSIDE RECORDS SUMMARY | 2024-06-02 09:31 | XMS_ITS | Referral Summary ---
Author Organization [facility] Address [address] [facility] [place] [address] Care Team Providers Care Hse Coordinator Name Role Phone Daisy Rubio MD Primary Care Provider [phone] Source Comments [facility],non-owned Affiliates and Associated Physician Practices is amultiple site organization consisting of ambulatory clinics and hospital sitesin [place], [place], [place] and [place]. This disclosure is being madepursuant to the Care Everywhere program and may not contain all information available regarding this patient. 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 DESIGNER Office Visit [facility] Orthopedics [address] [place] [phone] Karen Myers MD Chronic left shoulder pain (Primary Dx); S/P arthroscopy of left shoulder, capsular release; Adhesive capsulitis of left shoulder from Last 3 Months Allergies Active Allergy Reactions Criticality Noted Date Comments Levofloxacin Other 08/03/2017 Joint Pain Hydrocodone-Acetaminophen SEARCH MARKETING ANALYST Dysfunction 08/03 Could not move or talk [...] Active vitamin D, ergocalciferol, (Drisdol) 1.25 MG (13299 UT) capsule Take 1 (one) capsule by [...] 12/05/2023 8:25 AM CDT Plan of Treatment Not on file Procedures Procedure Name Priority Date/Time Associated Diagnosis Comments COMPREHENSIVE METABOLIC PANEL STAT 10/26/2023 7:26 AM CDT Pre-op evaluation from Last 3 Months or Most Recently Relevant to Health Maintenance Results * (ABNORMAL) COMPREHENSIVE METABOLIC PANEL (10/26/2023 7:26 AM CDT) [facility] Glucose 92 70 - 105 mg/dL 10/26/2023 7:56 AM CDT [facility] Sodium 138 136 - 145 mmol/L 10/26/2023 7:56 AM CDT [facility] Potassium 4.0 3.5 - 5.1 mmol/L 10/26/2023 7:56 AM CDT [facility] Chloride 103 98 - 107 mmol/L 10/26/2023 7:56 AM CDT [facility] CO2 29 22 - 29 mmol/L 10/26/2023 7:56 AM CDT [facility] Calcium 9.6 8.4 - 10.4 mg/dL 10/26/2023 7:56 AM CDT [facility] Anion Gap 6 6 - 16 mmol/L 10/26/2023 7:56 AM CDT [facility] BUN 12 5.3 - 18.7 mg/dL 10/26/2023 7:56 AM CDT [facility] Creatinine 0.85 0.57 - 1.11 mg/dL 10/26/2023 7:56 AM CDT [facility] Alkaline Phosphatase 86 40 - 150 U/L 10/26/2023 7:56 AM CDT [facility] ALT 32 0 - 55 U/L 10/26/2023 7:56 AM CDT [facility] AST 28 5 - 34 U/L 10/26/2023 7:56 AM CDT [facility] Protein Total 7.1 6.4 - 8.3 gm/dL 10/26/2023 7:56 AM CDT [facility] Albumin 3.7 3.4 - 5.0 gm/dL 10/26/2023 7:56 AM CDT [facility] Bilirubin Total 0.2 0.2 - 1.2 mg/dL 10/26/2023 7:56 AM CDT [facility] eGFR by CKD-EPI 84(L) >=90 mL/min/1.7 3 m2 10/26/2023 7:56 AM CDT [facility] Blood BLOOD SPECIMEN / Unknown Venipuncture / Unknown 10/26/2023 7:26 AM CDT 10/26/2023 7:32 AM CDT Johanny Gan DEPUTY ATTORNEY GENERAL-ROTOR ASSEMBLER LAB - CHEMISTRY O RDERABLES [facility] [address] [place] [address] from Last 3 Months or Most Recently Relevant to Health Maintenance Care Teams Hse Coordinator Relationship Specialty Start Date End Date Daisy Rubio MD [address] [place] [address] PCP - General Family Medicine 10/26/23
== END 2024-06-02 09:29 | disposition home or self-care (01) ==
PROVIDERS: PCP Family Medicine; Visit Provider Obstetrics & Gynecology
DX: R05.9 Cough, unspecified (principal)
CPT/HCPCS: 71046

== ENCOUNTER 2024-06-13 12:18 | Outpatient (CLI) | payer OTHER, SELFPAY ==
--- NOTE | ~2024-06-13 | DEXA_ITS ---
Bone Density Report Name: MARGARITA MAGANA Age: 48 Sex: Female Ethnicity: White Date of : 1975 Indication: postmenopausal; screening for osteoporosis; parental hip fracture; hysterectomy; rheumatoid arthritis; Referring Provider: FAWAD LOVE Study: Bone densitometry was performed. Exam Date: June 13, 2024 Accession number: [id number] Bone Density: Region BMD T-score Z-score Classification AP Spine(L1-L4) 1.035 -0.1 0.7 Normal Femoral Neck (Left) 0.677 -1.5 -0.8 Osteopenia Total Hip (Left) 0.818 -1.0 -0.5 Normal Femoral Neck (Right) 0.647 -1.8 -1.1 Osteopenia Total Hip (Right) 0.825 -1.0 -0.5 Normal Total Hip Mean 0.821 -1.0 -0.5 Normal World Health Organization criteria for BMD impression classify patients as: Normal (T-score at or above -1.0), Osteopenia (T-score between -1.0 and -2.5), or Osteoporosis (T-score at or below -2.5). 10-year Fracture Risk(1): Major Osteoporotic Fracture 13% Hip Fracture 0.8% Reported Risk Factors: [place] (), Neck BMD=0.647, BMI=30.2, parental fracture, rheumatoid arthritis (1) FRAX(R) Version 3.08. Fracture probability calculated for an untreated patient. Fracture probability may be lower if the patient has received treatment. Clinical Information Provided by Patient: Parent has had a hip fracture Has rheumatoid arthritis Has used the following medications: HRT (i.e. estrogen/hormone therapy), Vitamin D Has the following medical conditions: Hysterectomy Patient maximum height was 64.0 Menopause Age: 36 No regular weight bearing exercise Drinks caffeinated beverages Onset of menses at age 1 Impression: The patient has low bone mass, based on the Right Femoral Neck T-score. The patient has an estimated ten-year risk of hip fracture of 0.8% and an estimated ten-year risk of major fracture of 13%, based on the WHO FRAX algorithm. The patient has risk factors, including: parental hip fracture. Discussion: BONE DENSITY IS LOW AT ONE OR MORE SKELETAL SITES. This patient's lowest T-score is low at one or more skeletal sites. It meets the World Health Organization's (WHO) criteria for ?low bone mass? (T-score between -1.0 and -2.5). The patient's 10-year risk of fracture as calculated by FRAX is less than the threshold where pharmacological therapy is recommended by the National Osteoporosis Foundation (NOF). However, all treatment decisions require clinical judgment and consideration of individual patient factors, including patient preferences, comorbidities, previous drug use, risk factors not captured in the FRAX model (e.g., frailty, falls, vitamin D deficiency, increased bone turnover, interval significant decline in bone density) and possible under or overestimation of fracture risk by FRAX. The patient should follow a healthful lifestyle (good nutrition with adequate calcium and vitamin D, and appropriate weight-bearing exercise). Follow-Up: Consider repeating this study in 2 to 3 years to reassess this patient's status, or sooner if there is some new clinical indication. Reported by: MARI on 06/13/2024 12:47:00 PM. Reviewed, dictated and finalized at location ANeri HAYNES
--- OUTSIDE RECORDS SUMMARY | 2024-06-13 12:21 | XMS_ITS | Patient Health Summary ---
Author Organization [facility] Address [address] [place] [address] Care Team Providers Care Irrigation Manager Name Role Phone Daisy Rubio MD Primary Care Provider [phone] Note from [facility],non-owned Affiliates and Associated Physician Practices is amultiple site organization consisting of ambulatory clinics and hospital sitesin [place], [place], [place] and [place]. This disclosure is being madepursuant to the Care Everywhere program and may not contain all informatio navailable regarding this patient. Last updated 18.[facility] Allergies * Levofloxacin(Other) * Hydrocodone-Acetaminophen(INDUSTRIAL WELDER Dysfunction) * Metoprolol(Headache) -Low Criticality * Tramadol(Other) [...] * vitamin D, ergocalciferol, (Drisdol) 1.25 MG (21044 UT) capsule(Started 11/04/2023) Take 1 (one) capsule [...] 11/18/2023) * ENDOTRACHEAL TUBE NOTE(Performed 11/17/2023) * ID DRAIN/INJECT LARGE JOINT/BURSA(Performed 11/17/2023) Performed for Tear of left rotator cuff, unspecified tear extent, unspecified whether traumatic * ID SHOULDER ARTHROSCOPY(Performed 11/17/2023) Performed for Tear of left rotator cuff, unspecified tear extent, unspecified whether traumatic * ID SHOULDER ARTHROSCOPY/SURGERY(Performed 11/17/2023) Performed for Tear of [...] multiple sites, Positive JAN (antinuclear antibody) * CYBER DEFENSE ANALYST ANTIBODY(Performed 08/03/2017) Performed for Arthralgia of multiple [...] (11/17/2023 10:00 AM CDT) Narrative Leida Fitzpatrick, DIESEL ENGINE FITTER-FOAMING MACHINE OPERATOR - 11/17/2023 10:00 AM CDT Leida Fitzpatrick APRN-CRNA 11/17/2023 10:01 AM Endotracheal Tube Placement: Patient Location: OR. Intubation Event Date/Time: 11/17/2023 9:24 AM Procedure: intubation ([id number]) Procedure Section: Sedation: under general anesthesia. Indications [...] (Bezet) 436 ms [facility] MUSE Calculated P Randolph 72 degrees [facility] MUSE Calculated R Randolph 62 degrees [facility] MUSE Calculated T Randolph 46 degrees [facility] MUSE Interpretation EKG Normal sinus rhythm Normal ECG No previous ECGs available Confirmed by ANGELO MACIAS, ANAMIKA ([id number]) on 10/27/2023 10:01:34 AM [facility] MUSE 10/26/2023 [...] - 1.0 % 10/26/2023 7:50 AM CDT [facility] Neutrophil Absolute 2.26 1.60 - 7.50 x10E9/L 10/26/2023 7:50 AM CDT [facility] Lymphocyte Absolute 2.98 1.00 - 4.40 x10E9/L 10/26/2023 7:50 AM CDT [facility] Monocyte Absolute 0.77 0.15 - 1.00 x10E9/L 10/26/2023 7:50 AM CDT [facility] Eosinophil Absolute 0.33 0.00 - 0.60 x10E9/L 10/26/2023 7:50 AM CDT [facility] Basophil Absolute 0.03 0.00 - 0.13 x10E9/L 10/26/2023 7:50 AM CDT [facility] Blood BLOOD SPECIMEN / Unknown Venipuncture / Unknown 10/26/2023 7:26 AM CDT 10/26/2023 7:32 AM CDT Johanny Gan DIESEL ENGINE FITTER-CORPORATE TAX PREPARER LAB - HEMATOLOGY ORDERABLES [facility] [address] [place] [address] * (ABNORMAL) COMPREHENSIVE METABOLIC PANEL (10/26/2023 7:26 AM CDT) Only the most recent of2 resultswithin the time period is included. Glucose 92 70 - 105 mg/dL 10/26/2023 7:56 AM CDT [facility] Sodium 138 136 - 145 mmol/L 10/26/2023 7:56 AM CDT [facility] Potassium 4.0 3.5 - 5.1 mmol/L 10/26/2023 7:56 AM CDT [facility] Chloride 103 98 - 107 mmol/L 10/26/2023 7:56 AM CDT [facility] CO2 29 22 - 29 mmol/L 10/26/2023 7:56 AM CDT [facility] Calcium 9.6 8.4 - 10.4 mg/dL 10/26/2023 7:56 AM CDT [facility] Anion Gap 6 6 - 16 mmol/L 10/26/2023 7:56 AM CDT [facility] BUN 12 5.3 - 18.7 mg/dL 10/26/2023 7:56 AM CDT [facility] Creatinine 0.85 0.57 - 1.11 mg/dL 10/26/2023 7:56 AM CDT [facility] Alkaline Phosphatase 86 40 - 150 U/L 10/26/2023 7:56 AM CDT [facility] ALT 32 0 - 55 U/L 10/26/2023 7:56 AM CDT [facility] AST 28 5 - 34 U/L 10/26/2023 7:56 AM CDT [facility] Protein Total 7.1 6.4 - 8.3 gm/dL 10/26/2023 7:56 AM CDT [facility] Albumin 3.7 3.4 - 5.0 gm/dL 10/26/2023 7:56 AM CDT [facility] Bilirubin Total 0.2 0.2 - 1.2 mg/dL 10/26/2023 7:56 AM T [facility] eGFR by CKD-EPI 84(L) >=90 mL/min/1.7 3 m2 10/26/2023 7:56 AM CDT [facility] Blood BLOOD SPECIMEN / Unknown Venipuncture / Unknown 10/26/2023 7:26 AM CDT 10/26/2023 7:32 AM CDT Joahnny Gan APRN-CORPORATE TAX PREPARER LAB - CHEMISTRY O RDERABLES Performing Organization Address City/[facility]/ZIP Co de Phone Number [facility] [address] [phone] * XR CERVICAL SPINE 2 OR 3VW (07/29/2023 11:39 AM CDT) Narrative [facility] [address] - 07/29/2023 11:39 AM CDT Please see progress note in Epic for results. Daisy Pedro PA-C DIAGNOSTIC IMAGING O RDERABLES [facility] [address] * XR SHOULDER LEFT 2VW OR MORE (07/29/2023 11:29 AM CDT) Narrative [facility] [address] - 07/29/2023 11:29 AM CDT Please see progress note in Epic for results. Daisy Pedro PA-C DIAGNOSTIC IMAGING O RDERABLES [facility] [address] * XR HIPS BILATERAL 2 VW W AP PELVIS (05/06/2022 3:05 PM SHIPPING ASSISTANT) Anatomical Region Laterality Modality Pelvis, Lower Extremity Radiogra phic Imaging 05/06/2022 3:10 PM SHIPPING ASSISTANT Impressions 05/06/2022 3:11 PM SHIPPING ASSISTANT IMPRESSION: 1. No acute fracture or osseous abnormality in the hips or pelvis. 2. Minimal sclerosis at the inferior margin of the left sacroiliac joint. > Interpreting Provider: Daisy Marquez MD on 05/06/2022 3:11 PM Narrative 05/06/2022 3:11 PM SHIPPING ASSISTANT PROCEDURE: XR PELVIS W BILAT HIP 2VW, DATE/TIME OF EXAM: 05/06/2022 3:05 PM, LOCATION [facility] INDICATION: M06.09: Rheumatoid arthritis without rheumatoid factor, multiple sites ([facility]) M45.0: Ankylosing spondylitis of multiple sites in spine ([facility]) M46.1: Sacroiliitis, not elsewhere classified ([facility]) G47.01: Insomnia due to medical condition [...] 2VW, DATE/TIME OF EXAM: 33:05 PM, LOCATION [facility] INDICATION: M06.09: Rheumatoid arthritis without rheumatoid factor, multiple sites ([facility]) M45.0: Ankylosing spondylitis of multiple sites in spine ([facility]) M46.1: Sacroiliitis, not elsewhere classified ([facility]) G47.01: Insomnia due to medical condition [...] RDERABLES * XR FOOT 3+ VW RIGHT [[id number]] (08/03/2017 11:01 AM CDT) Anatomical Region Laterality [...] RDERABLES * XR FOOT 3+ VW LEFT [[id number]] (08/03/2017 11:01 AM CDT) Anatomical Region Laterality [...] RDERABLES * XR HAND 3+ VW RIGHT [[id number]] (08/03/2017 11:01 AM CDT) Anatomical Region Laterality [...] RDERABLES * XR HAND 3+ VW LEFT [[id number]] (08/03/2017 11:01 AM CDT) Anatomical Region Laterality [...] - 29 IU/mL 08/05/2017 10:36 AM CDT [facility] Comment: dsDNA Antibody Numeric Result Interpretation: 0 - 29 IU/mL: Negative 30 - 75 IU/mL: Borderline >75 IU/mL: Positive Blood BLOOD SPECIMEN / Unknown Lab Venipuncture / Unknown 08/03/2017 10:43 AM CDT 08/03/2017 11:20 AM CDT Bebeto Braga MD LAB - SEROLOGY ORDER DEBBI Performing Organization Address City/State/[facility] Co de Phone Number [facility] [address] [phone] * (ABNORMAL) LINO STAINING PATTERNS REFLEXED (08/03/2017 10:43 AM CDT) Speckled Pattern 1:320(H) 08/05/2017 5:11 PM CDT [facility] ([facility]) Note Comment 08/05/2017 5:11 PM CDT [facility] ([facility]) Blood BLOOD SPECIMEN / Unknown Lab Venipuncture / Unknown 08/03/2017 10:43 AM CDT 08/03/2017 11:15 AM CDT Narrative [facility] ([facility]) - 08/05/2017 5:11 PM CDT A positive JAN result may occur in healthy individuals (low titer) or be associated with a variety of diseases. See interpretation chart which is not all inclusive: Pattern Antigen Detected Suggested Disease Association Homogeneous DNA(ds,ss), SLE - High titers Nucleosomes, Histones Drug-induced SLE Speckled Sm, CYBER DEFENSE ANALYST, SCL-70, SLE,MCTD,PSS (diffuse form), SS-A/SS-B Sjogrens Nucleolar SCL-70, PM-1/SCL High titers Scleroderma, PM/DM Centromere Centromere PSS (limited form) w/Crest syndrome variable Nuclear Dot Sp100,v72-twduun Primary Biliary Cirrhosis Nuclear GP210, Primary Biliary Cirrhosis Membrane magda A,B,C Bebeto Braga MD LAB - PATHOLOGY/CYTO LOGY ORDERABLES [facility] ([facility]) [address] [place] [address], [facility] * (ABNORMAL) URINALYSIS REFLEX TO MICROSCOPIC NO CULTURE (08/03/2017 10:43 AM T) Color UA Yellow Straw, Yellow, Colorless, Light Yellow 08/03/2017 11:24 AM [facility] Clarity UA Clear Clear 08/03/2017 11:24 AM [facility] Specific [place] UA 1.010 1.001 - 1.030 08/03/2017 11:24 [...] - 1 /HPF 08/03/2017 11:24 AM CDT [facility] Mucus UA Rare(A) None /LPF 08/03/2017 11:24 AM CDT [facility] Urine URINE SPECIMEN OBTAINED BY CLEAN CATCH PROCEDURE / Unknown Collection / Unknown 08/03/2017 10:43 AM CDT 08/03/2017 11:15 AM CDT Bebeto Braga MD LAB - URINALYSIS ORD HARSHAL Performing Organization Address [facility] Co de Phone Number [address] [phone] * DWYER (SM) ANTIBODY MARY (08/03/2017 10:43 AM CDT) Dwyer Antibody 5.1 0.0 - 19.9 Units 08/05/2017 10:36 AM CDT [facility] Comment: MARY Antibody Numeric Result Interpretation: <20.0 Units: Negative 20.0 - 39.0 Units: Weakly Positive >39.0 Units: Positive Blood BLOOD SPECIMEN / Unknown Lab Venipuncture / Unknown 08/03/2017 10:43 AM CDT 08/03/2017 11:20 AM CDT Bebeto Braga MD LAB - CHEMISTRY ARMANDO ROMO Performing Organization Address [facility] de Phone Number [address] [phone] * CYBER DEFENSE ANALYST ANTIBODY (08/03/2017 10:43 AM CDT) SM/CYBER DEFENSE ANALYST Antibody 3.0 0.0 - 19.9 Units 08/05/2017 10:36 AM CDT [facility] Comment: MARY Antibody Numeric Result Interpretation: <20.0 Units: Negative 20.0 - 39.0 Units: Weakly Positive >39.0 Units: Positive Blood BLOOD SPECIMEN / Unknown Lab Venipuncture / Unknown 08/03/2017 10:43 AM CDT 08/03/2017 11:20 AM CDT Bebeto Braga MD LAB - CHEMISTRY ARMANDO ROMO [address] [phone] * C-REACTIVE PROTEIN (08/03/2017 10:43 AM CDT) [facility] C-Reactive Protein <0.5 <=0.5 mg/dL 08/03/2017 11:39 AM CDT [facility] Blood BLOOD SPECIMEN / Unknown Lab Venipuncture / Unknown 08/03/2017 10:43 AM CDT 08/03/2017 11:15 AM CDT Bebeto Braga MD LAB - CHEMISTRY ARMANDO ROMO Performing Organization Address [facility]/ZIP Co de Phone Number [address] [phone] * (ABNORMAL) JAN BLOOD SCREEN W/REFLEX TITER (08/03/2017 10:43 AM CDT) [facility] JAN Positive(A ) 08/05/2017 5:11 PM CDT [facility] ([facility]) Comment: Negative <1:80 Borderline 1:80 Positive >1:80 Blood BLOOD SPECIMEN / Unknown Lab Venipuncture / Unknown 08/03/2017 10:43 AM CDT 08/03/2017 11:15 AM CDT Narrative [facility] ([facility]) - 08/05/2017 5:11 PM CDT Performed at: - [facility] [address] [place], [place] [id number] Water Team Leader: Carlos Alberto Mullins PhD, Phone: [phone] Bebeto Braga MD LAB - CHEMISTRY ARMANDO ROMO Performing Organization Address City/[facility]/ZIP Co de Phone Number [facility] ([facility]) [address] [place] [address] * (ABNORMAL) THYROID PEROXIDASE ANTIBODY (08/03/2017 10:43 AM CDT) [facility] Thyroid Peroxidase TPO Antibody 38(H) 0 - 34 IU/mL 08/04/2017 4:28 PM CDT [facility] ([facility]) Blood BLOOD SPECIMEN / Unknown Lab Venipuncture / Unknown 08/03/2017 10:43 AM CDT 08/03/2017 11:19 AM CDT [facility] ([facility]) - 08/04/2017 4:28 PM CDT Performed at: [address] [place] [id number] Water Team Leader: Carlos Alberto Mullins PhD, Phone: [phone] Bebeto Braga MD LAB - CHEMISTRY ARMANDO ROMO Performing Organization Address [facility] de Phone Number [facility] ([facility]) [address] [place] [phone] * THYROGLOBULIN ANTIBODY (08/03/2017 10:43 AM CDT) Thyroglobulin Antibody <1.0 0.0 - 0.9 IU/mL 08/04/2017 4:28 PM CDT [facility] ([facility]) Comment:Thyroglobulin Antibo dy measured by [employer] Blood BLOOD SPECIMEN / Unknown Lab Venipuncture / Unknown 08/03/2017 10:43 AM CDT 08/03/2017 11:19 AM CDT [facility] ([facility]) - 08/04/2017 4:28 PM CDT Performed at: [address] [place] [id number] Water Team Leader: Carlos Alberto Mullins PhD, Phone: [phone] Bebeto Braga MD LAB - CHEMISTRY ARMANDO ROMO Performing Organization Address [facility] de Phone Number [facility] ([facility]) [address] [place] [phone] * HISTONE ANTIBODY (08/03/2017 10:43 AM CDT) Anti-Histone Antibody 0.7 0.0 - 0.9 Units 08/09/2017 12:18 PM CDT [facility]) Comment: Negative <1.0 Weak Positive 1.0 - 1.5 Moderate Positive 1.6 - 2.5 Strong Positive >2.5 Blood BLOOD SPECIMEN / Unknown Lab Venipuncture / Unknown 08/03/2017 10:43 AM CDT 08/03/2017 11:20 AM CDT Narrative [facility] ([facility]) - 08/09/2017 12:18 PM CDT Performed at: [address] [place] [id number] Water Team Leader: Betito Espino MD, Phone: [phone] Bebeto Braga MD LAB - CHEMISTRY ARMANDO ROMO Performing Organization Address City/[facility] Co de Phone Number [facility] ([facility]) [address] [place] [address] * COMPLEMENT TOTAL (08/03/2017 10:43 AM CDT) [facility] Complement Total CH50 50 42 - 60 U/mL 08/04/2017 3:22 PM CDT [facility]) Blood BLOOD SPECIMEN / Unknown Lab Venipuncture / Unknown 08/03/2017 10:43 AM CDT 08/03/2017 11:14 AM CDT [facility] ([facility]) - 08/04/2017 3:22 PM CDT Performed at: [address] [place] [address] [address] [place], [place] [id number] Water Team Leader: Carlos Alberto Mullins PhD, Phone: [phone] Bebeto Braga MD LAB - CHEMISTRY ARMANDO ROMO Performing Organization Address [facility] de Phone Number [facility] ([facility]) [address] [place] [address] * SS-B (SJOGRENS'S) ANTIBODY (08/03/2017 10:43 AM CDT) [facility] SS-B LA Antibody 4.2 0.0 - 19.9 Units 08/05/2017 10:34 AM CDT [facility] Comment: MARY Antibody Numeric Result Interpretation: <20.0 Units: Negative 20.0 - 39.0 Units: Weakly Positive >39.0 Units: Positive Blood BLOOD SPECIMEN / Unknown Lab Venipuncture / Unknown 08/03/2017 10:43 AM CDT 08/03/2017 11:15 AM CDT Bebeto Braga MD LAB - CHEMISTRY ARMANDO ROMO [address] [phone] * SS-A (SJOGREN'S) ANTIBODY (08/03/2017 10:43 AM CDT) SS-A (Ro) Antibody 2.3 0.0 - 19.9 Units 08/05/2017 10:34 AM CDT [facility] Comment: MARY Antibody Numeric Result Interpretation: <20.0 Units: Negative 20.0 - 39.0 Units: Weakly Positive >39.0 Units: Positive Blood BLOOD SPECIMEN / Unknown Lab Venipuncture / Unknown 08/03/2017 10:43 AM CDT 08/03/2017 11:15 AM CDT Bebeto Braga MD LAB - CHEMISTRY ARMANDO ROMO [address] [phone] * SCLERODERMA 70 (SCL) ANTIBODY (08/03/2017 10:43 AM CDT) Pathologist [facility] SCL-70 Antibody 3.1 0.0 - 19.9 Units 08/05/2017 10:34 AM CDT [facility] Comment: MARY Antibody Numeric Result Interpretation: <20.0 Units: Negative 20.0 - 39.0 Units: Weakly Positive >39.0 Units: Positive Blood BLOOD SPECIMEN / Unknown Lab Venipuncture / Unknown 08/03/2017 10:43 AM CDT 08/03/2017 11:15 AM CDT Bebeto Braga MD LAB - CHEMISTRY ARMANDO ROMO [address] [phone] * ALDOLASE (08/03/2017 10:43 AM CDT) Aldolase 4.5 3.3 - 10.3 U/L 08/04/2017 3:22 PM CDT [facility] ([facility]) Blood BLOOD SPECIMEN / Unknown Lab Venipuncture / Unknown 08/03/2017 10:43 AM CDT 08/03/2017 11:16 AM CDT Narrative [facility] ([facility]) - 08/04/2017 3:22 PM CDT Performed at: 01 - [facility] [address] [place], [place] [id number] Water Team Leader: Carlos Alberto Mullins PhD, Phone: [phone] Bebeto Braga MD LAB - CHEMISTRY ARMANDO ROMO [facility] ([facility]) [address] [place] [address] * CULTURE URINE (08/03/2017 10:43 AM CDT) Pathologist [facility] Culture Urine No growth (<1,000 CFU/mL) AJ 08/04/2017 2:36 PM CDT [facility] Urine URINE SPECIMEN OBTAINED BY CLEAN CATCH PROCEDURE / Unknown Collection / Unknown 08/03/2017 10:43 AM CDT 08/03/2017 11:18 AM CDT Bebeto Braga MD LAB - MICROBIOLOGY O RDERABLES Performing Organization Address City/[facility]/ZIP Co de Phone Number [facility] [address] [place] [address] [phone] * ERYTHROCYTE SEDIMENTATION RATE (08/03/2017 10:43 AM CDT) Erythrocyte Sedimentation Rate Westergren 3 0 - 20 MM/HR 08/03/2017 11:34 AM CDT [facility] Blood BLOOD SPECIMEN / Unknown Lab Venipuncture / Unknown 08/03/2017 10:43 AM CDT 08/03/2017 11:15 AM CDT Bebeto Braga MD LAB - HEMATOLOGY ORD ERABLES [address] [phone] * COMPLEMENT C4 (08/03/2017 10:43 AM CDT) Pathologist [facility] Complement C4 25 15 - 57 mg/dL 08/03/2017 11:46 AM CDT [facility] Blood BLOOD SPECIMEN / Unknown Lab Venipuncture / Unknown 08/03/2017 10:43 AM CDT 08/03/2017 11:14 AM CDT Bebeto Braga MD LAB - SEROLOGY ORDER DEBBI [address] [phone] * LDH BLOOD (08/03/2017 10:43 AM CDT) [facility] LDH Total 127 125 - 243 Units/L 08/03/2017 11:51 AM CDT [facility] Blood BLOOD SPECIMEN / Unknown Lab Venipuncture / Unknown 08/03/2017 10:43 AM CDT 08/03/2017 11:18 AM CDT Bebeto Braga MD LAB - CHEMISTRY ORDAugusto ROMO [address] [phone] * CK BLOOD (08/03/2017 10:43 AM CDT) Pathologist [facility] CK Total 43 30 - 200 Units/L 08/03/2017 11:51 AM CDT [facility] Blood BLOOD SPECIMEN / Unknown Lab Venipuncture / Unknown 08/03/2017 10:43 AM CDT 08/03/2017 11:18 AM CDT Bebeto Braga MD LAB - CHEMISTRY [place] [address], [facility] [phone] * COMPLEMENT C3 (08/03/2017 10:43 AM CDT) Complement C3 124 82 - 193 mg/dL 08/03/2017 11:46 AM CDT [facility] Blood BLOOD SPECIMEN / Unknown Lab Venipuncture / Unknown 08/03/2017 10:43 AM CDT 08/03/2017 11:14 AM CDT Bebeto Braga MD LAB - CHEMISTRY ARMANDO ROMO Performing Organization Address City/State/[facility] Co de Phone Number [address] [phone] Care Teams Irrigation Manager Relationship Specialty Start Date End Date Daisy Rubio MD [address] [place] [address] PCP - General Family Medicine 10/26/23
--- OUTSIDE RECORDS SUMMARY | 2024-06-13 12:21 | XMS_ITS | Referral Summary ---
Author Organization [facility] Address [address] [place] [address] Care Team Providers Care Plant Biology Professor Name Role Phone Daisy Rubio MD Primary Care Provider [phone] Source Comments [facility],non-owned Affiliates and Associated Physician Practices is amultiple site organization consisting of ambulatory clinics and hospital sitesin [place], [place], [place] and [place]. This disclosure is being madepursuant to the Care Everywhere program and may not contain all information available regarding this patient. 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 08/03 Could not move or talk [...] Active vitamin D, ergocalciferol, (Drisdol) 1.25 MG (15966 UT) capsule Take 1 (one) capsule by [...] COMPREHENSIVE METABOLIC PANEL (10/26/2023 7:26 AM CDT) [facility] Glucose 92 70 - 105 mg/dL 10/26/2023 7:56 AM CDT [facility] Sodium 138 136 - 145 mmol/L 10/26/2023 7:56 AM CDT [facility] Potassium 4.0 3.5 - 5.1 mmol/L 10/26/2023 7:56 AM CDT [facility] Chloride 103 98 - 107 mmol/L 10/26/2023 7:56 AM CDT [facility] CO2 29 22 - 29 mmol/L 10/26/2023 7:56 AM CDT [facility] Calcium 9.6 8.4 - 10.4 mg/dL 10/26/2023 7:56 AM CDT [facility] Anion Gap 6 6 - 16 mmol/L 10/26/2023 7:56 AM CDT [facility] BUN 12 5.3 - 18.7 mg/dL 10/26/2023 7:56 AM CDT [facility] Creatinine 0.85 0.57 - 1.11 mg/dL 10/26/2023 7:56 AM CDT [facility] Alkaline Phosphatase 86 40 - 150 U/L 10/26/2023 7:56 AM CDT [facility] ALT 32 0 - 55 U/L 10/26/2023 7:56 AM CDT [facility] AST 28 5 - 34 U/L 10/26/2023 7:56 AM CDT [facility] Protein Total 7.1 6.4 - 8.3 gm/dL 10/26/2023 7:56 AM CDT [facility] Albumin 3.7 3.4 - 5.0 gm/dL 10/26/2023 7:56 AM CDT [facility] Bilirubin Total 0.2 0.2 - 1.2 mg/dL 10/26/2023 7:56 AM CDT [facility] eGFR by CKD-EPI 84(L) >=90 mL/min/1.7 3 m2 10/26/2023 7:56 AM CDT [facility] Blood BLOOD SPECIMEN / Unknown Venipuncture / Unknown 10/26/2023 7:26 AM CDT 10/26/2023 7:32 AM CDT Johanny Gan GLASS BLOCK INSTALLER-SENIOR PRODUCTION SUPERVISOR LAB - CHEMISTRY O RDERABLES [facility] [address] [place] [address] from Last 3 Months or Most Recently Relevant to Health Maintenance Care Teams Plant Biology Professor Relationship Specialty Start Date End Date Daisy Rubio MD [address] [place] [address] PCP - General Family Medicine 10/26/23
--- OUTSIDE RECORDS SUMMARY | 2024-06-13 12:21 | XMS_ITS | Clinical Summary ---
Author Organization [facility] Address [address] [place] [address] Care Team Providers Care Cash Van Salesperson Name Role Phone Daisy Rubio MD Primary Care Provider [phone] Source Comments [facility],non-owned Affiliates and Associated Physician Practices is amultiple site organization consisting of ambulatory clinics and hospital sitesin [place], [place], [place] and [place]. This disclosure is being madepursuant to the Care Everywhere program and may not contain all information available regarding this patient. 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 08/03 Could not move or talk [...] Active vitamin D, ergocalciferol, (Drisdol) 1.25 MG (03226 UT) capsule Take 1 (one) capsule by [...] Department Care Team Description 05/23/2024 8:00 AM SPECIAL FORCES WARRANT OFFICER Office Visit [facility] [address] [facility], [address] [phone] Karen Myers MD Chronic left [...] COMPREHENSIVE METABOLIC PANEL (10/26/2023 7:26 AM CDT) [facility] Glucose 92 70 - 105 mg/dL 10/26/2023 7:56 AM CDT [facility] Sodium 138 136 - 145 mmol/L 10/26/2023 7:56 AM CDT [facility] Potassium 4.0 3.5 - 5.1 mmol/L 10/26/2023 7:56 AM CDT [facility] Chloride 103 98 - 107 mmol/L 10/26/2023 7:56 AM CDT [facility] CO2 29 22 - 29 mmol/L 10/26/2023 7:56 AM CDT [facility] Calcium 9.6 8.4 - 10.4 mg/dL 10/26/2023 7:56 AM CDT [facility] Anion Gap 6 6 - 16 mmol/L 10/26/2023 7:56 AM CDT [facility] BUN 12 5.3 - 18.7 mg/dL 10/26/2023 7:56 AM CDT [facility] Creatinine 0.85 0.57 - 1.11 mg/dL 10/26/2023 7:56 AM CDT [facility] Alkaline Phosphatase 86 40 - 150 U/L 10/26/2023 7:56 AM CDT [facility] ALT 32 0 - 55 U/L 10/26/2023 7:56 AM CDT [facility] AST 28 5 - 34 U/L 10/26/2023 7:56 AM CDT [facility] Protein Total 7.1 6.4 - 8.3 gm/dL 10/26/2023 7:56 AM CDT [facility] Albumin 3.7 3.4 - 5.0 gm/dL 10/26/2023 7:56 AM CDT [facility] Bilirubin Total 0.2 0.2 - 1.2 mg/dL 10/26/2023 7:56 AM CDT [facility] eGFR by CKD-EPI 84(L) >=90 mL/min/1.7 3 m2 10/26/2023 7:56 AM CDT [facility] Blood BLOOD SPECIMEN / Unknown Venipuncture / Unknown 10/26/2023 7:26 AM CDT 10/26/2023 7:32 AM CDT Johanny Gan SURGICAL INSTRUMENT MAKER-FIELD TECHNICIAN LAB - CHEMISTRY O RDERABLES [facility] [address] [place] [address] from Last 3 Months or Most Recently Relevant to Health Maintenance Care Teams Cash Van Salesperson Relationship Specialty Start Date End Date Daisy Rubio MD [address] [place], [place] [id number] PCP - General Family Medicine 10/26/23
== END 2024-06-13 12:19 | disposition home or self-care (01) ==
LOC: ANHIMG 12:19
PROVIDERS: PCP Family Medicine; Visit Provider Internal Medicine
DX: Z13.820 Encounter for screening for osteoporosis (principal); M85.852 Other specified disorders of bone density and structure, left thigh; M85.851 Other specified disorders of bone density and structure, right thigh
CPT/HCPCS: 77080

== ENCOUNTER 2024-06-28 09:03 | Outpatient (CLI) | payer OTHER, SELFPAY ==
--- OUTSIDE RECORDS SUMMARY | 2024-06-28 09:46 | XMS_ITS | Patient Health Summary ---
Author Organization [facility] Address [address] [place] [address] Care Team Providers Care Liner Installer Name Role Phone Daisy Rubio MD Primary Care Provider [phone] Note from [facility],non-owned Affiliates and Associated Physician Practices is amultiple site organization consisting of ambulatory clinics and hospital sitesin [place], [place], [place] and [place]. This disclosure is being madepursuant to the Care Everywhere program and may not contain all informatio navailable regarding this patient. Last updated 18.[facility] Allergies * Levofloxacin(Other) * Hydrocodone-Acetaminophen(SUGAR REFINERY SUPERVISOR Dysfunction) * Metoprolol(Headache) -Low Criticality * Tramadol(Other) [...] * vitamin D, ergocalciferol, (Drisdol) 1.25 MG (26415 UT) capsule(Started 11/04/2023) Take 1 (one) capsule [...] 11/18/2023) * ENDOTRACHEAL TUBE NOTE(Performed 11/17/2023) * RI DRAIN/INJECT LARGE JOINT/BURSA(Performed 11/17/2023) Performed for Tear of left rotator cuff, unspecified tear extent, unspecified whether traumatic * RI SHOULDER ARTHROSCOPY(Performed 11/17/2023) Performed for Tear of left rotator cuff, unspecified tear extent, unspecified whether traumatic * RI SHOULDER ARTHROSCOPY/SURGERY(Performed 11/17/2023) Performed for Tear of [...] multiple sites, Positive JAN (antinuclear antibody) * PLACEMENT SPECIALIST ANTIBODY(Performed 08/03/2017) Performed for Arthralgia of [...] (11/17/2023 10:00 AM CDT) Narrative Leida Fitzpatrick, PRODUCT MANAGEMENT ANALYST-[employer]OZEN FOODS MANAGER - 11/17/2023 10:00 AM CDT Leida Fitzpatrick APRN-CRNA 11/17/2023 10:01 AM Endotracheal Tube Placement: Patient Location: OR. Intubation Event Date/Time: 11/17/2023 9:24 AM Procedure: intubation (80537) Procedure Section: Sedation: under general anesthesia. Indications [...] (Bezet) 436 ms [facility] MUSE Calculated P [place] 72 degrees [facility] MUSE Calculated R [place] 62 degrees [facility] MUSE Calculated T [place] 46 degrees [facility] MUSE Interpretation EKG Normal sinus rhythm Normal ECG No previous ECGs available Confirmed by ANGELO MACIAS, ANAMIKA ([id number]) on 10/27/2023 10:01:34 AM [facility] MUSE [...] - 1.0 % 10/26/2023 7:50 AM CDT [facility] Neutrophil Absolute 2.26 1.60 - 7.50 x10E9/L 10/26/2023 7:50 AM CDT [facility] Lymphocyte Absolute 2.98 1.00 - 4.40 x10E9/L 10/26/2023 7:50 AM CDT [facility] Monocyte Absolute 0.77 0.15 - 1.00 x10E9/L 10/26/2023 7:50 AM CDT [facility] Eosinophil Absolute 0.33 0.00 - 0.60 x10E9/L 10/26/2023 7:50 AM CDT [facility] Basophil Absolute 0.03 0.00 - 0.13 x10E9/L 10/26/2023 7:50 AM CDT [facility] Blood BLOOD SPECIMEN / Unknown Venipuncture / Unknown 10/26/2023 7:26 AM CDT 10/26/2023 7:32 AM CDT Johanny Gan PRODUCT MANAGEMENT ANALYST-[facility] - HEMATOLOGY ORDERABLES [facility] [address] [place] [address] * (ABNORMAL) COMPREHENSIVE METABOLIC PANEL (10/26/2023 7:26 AM CDT) Only the most recent of2 resultswithin the time period is included. Glucose 92 70 - 105 mg/dL 10/26/2023 7:56 AM CDT [facility] Sodium 138 136 - 145 mmol/L 10/26/2023 7:56 AM CDT [facility] Potassium 4.0 3.5 - 5.1 mmol/L 10/26/2023 7:56 AM CDT [facility] Chloride 103 98 - 107 mmol/L 10/26/2023 7:56 AM CDT [facility] CO2 29 22 - 29 mmol/L 10/26/2023 7:56 AM CDT [facility] Calcium 9.6 8.4 - 10.4 mg/dL 10/26/2023 7:56 AM CDT [facility] Anion Gap 6 6 - 16 mmol/L 10/26/2023 7:56 AM CDT [facility] BUN 12 5.3 - 18.7 mg/dL 10/26/2023 7:56 AM CDT [facility] Creatinine 0.85 0.57 - 1.11 mg/dL 10/26/2023 7:56 AM CDT [facility] Alkaline Phosphatase 86 40 - 150 U/L 10/26/2023 7:56 AM CDT [facility] ALT 32 0 - 55 U/L 10/26/2023 7:56 AM CDT [facility] AST 28 5 - 34 U/L 10/26/2023 7:56 AM CDT [facility] Protein Total 7.1 6.4 - 8.3 gm/dL 10/26/2023 7:56 AM CDT [facility] Albumin 3.7 3.4 - 5.0 gm/dL 10/26/2023 7:56 AM CDT [facility] Bilirubin Total 0.2 0.2 - 1.2 mg/dL 10/26/2023 7:56 AM T [facility] eGFR by CKD-EPI 84(L) >=90 mL/min/1.7 3 m2 10/26/2023 7:56 AM CDT [facility] Blood BLOOD SPECIMEN / Unknown Venipuncture / Unknown 10/26/2023 7:26 AM CDT 10/26/2023 7:32 AM CDT Johanny Gan APRN-[facility] - CHEMISTRY O RDERABLES Performing Organization Address City/[facility]/ZIP Co de Phone Number [facility] [address] [place] [phone] * XR CERVICAL SPINE 2 OR 3VW (07/29/2023 11:39 AM CDT) Narrative [facility] [address] - 07/29/2023 11:39 AM CDT Please see progress note in Epic for results. Daisy Pedro PA-C DIAGNOSTIC IMAGING O RDERABLES [facility] [address] * XR SHOULDER LEFT 2VW OR MORE (07/29/2023 11:29 AM CDT) Narrative [facility] [address] - 07/29/2023 11:29 AM CDT Please see progress note in Epic for results. Daisy Pedro PA-C DIAGNOSTIC IMAGING O RDERABLES [facility] [address] * XR HIPS BILATERAL 2 VW W AP PELVIS (05/06/2022 3:05 PM PRESERVATIONIST) Anatomical Region Laterality Modality Pelvis, Lower Extremity Radiogra phic Imaging 05/06/2022 3:10 PM PRESERVATIONIST Impressions 05/06/2022 3:11 PM PRESERVATIONIST IMPRESSION: 1. No acute fracture or osseous abnormality in the hips or pelvis. 2. Minimal sclerosis at the inferior margin of the left sacroiliac joint. > Interpreting Provider: Daisy Marquez MD on 05/06/2022 3:11 PM Narrative 05/06/2022 3:11 PM PRESERVATIONIST PROCEDURE: XR PELVIS W BILAT HIP 2VW, DATE/TIME OF EXAM: 05/06/2022 3:05 PM, LOCATION [facility] INDICATION: M06.09: Rheumatoid arthritis without rheumatoid factor, multiple sites ([facility]) M45.0: Ankylosing spondylitis of multiple sites in spine ([facility]) M46.1: Sacroiliitis, not elsewhere classified ([facility]) G47.01: Insomnia due to medical condition ADDITIONAL [...] 2VW, DATE/TIME OF EXAM: 33:05 PM, LOCATION [facility] INDICATION: M06.09: Rheumatoid arthritis without rheumatoid factor, multiple sites ([facility]) M45.0: Ankylosing spondylitis of multiple sites in spine ([facility]) M46.1: Sacroiliitis, not elsewhere classified ([facility]) G47.01: Insomnia due to medical condition ADDITIONAL [...] RDERABLES * XR FOOT 3+ VW RIGHT [[id number]] (08/03/2017 11:01 AM CDT) Anatomical Region Laterality [...] RDERABLES * XR FOOT 3+ VW LEFT [[id number]] (08/03/2017 11:01 AM CDT) Anatomical Region Laterality [...] RDERABLES * XR HAND 3+ VW RIGHT [[id number]] (08/03/2017 11:01 AM CDT) Anatomical Region Laterality [...] RDERABLES * XR HAND 3+ VW LEFT [[id number]] (08/03/2017 11:01 AM CDT) Anatomical Region Laterality [...] - 29 IU/mL 08/05/2017 10:36 AM CDT [facility] Comment: dsDNA Antibody Numeric Result Interpretation: 0 - 29 IU/mL: Negative 30 - 75 IU/mL: Borderline >75 IU/mL: Positive Blood BLOOD SPECIMEN / Unknown Lab Venipuncture / Unknown 08/03/2017 10:43 AM CDT 08/03/2017 11:20 AM CDT Bebeto Braga MD LAB - SEROLOGY ORDER DEBBI Performing Organization Address City/State/[facility] Co de Phone Number [facility] [address] [phone] * (ABNORMAL) LINO STAINING PATTERNS REFLEXED (08/03/2017 10:43 AM CDT) Speckled Pattern 1:320(H) 08/05/2017 5:11 PM CDT [facility] ([facility]) Note Comment 08/05/2017 5:11 PM CDT [facility] ([facility]) Blood BLOOD SPECIMEN / Unknown Lab Venipuncture / Unknown 08/03/2017 10:43 AM CDT 08/03/2017 11:15 AM CDT Narrative [facility] ([facility]) - 08/05/2017 5:11 PM CDT A positive JAN result may occur in healthy individuals (low titer) or be associated with a variety of diseases. See interpretation chart which is not all inclusive: Pattern Antigen Detected Suggested Disease Association Homogeneous DNA(ds,ss), SLE - High titers Nucleosomes, Histones Drug-induced SLE Speckled Sm, PLACEMENT SPECIALIST, SCL-70, SLE,MCTD,PSS (diffuse form), SS-A/SS-B Sjogrens Nucleolar SCL-70, PM-1/SCL High titers Scleroderma, PM/DM Centromere Centromere PSS (limited form) w/Crest syndrome variable Nuclear Dot Sp100,[id number] Primary Biliary Cirrhosis Nuclear GP210, Primary Biliary Cirrhosis Membrane magda A,B,C Bebeto Braga MD LAB - PATHOLOGY/CYTO LOGY ORDERABLES [facility] ([facility]) [address] [place] [address], [facility] * (ABNORMAL) URINALYSIS REFLEX TO MICROSCOPIC NO CULTURE (08/03/2017 10:43 AM T) Color UA Yellow Straw, Yellow, Colorless, Light Yellow 08/03/2017 11:24 AM [facility] Clarity UA Clear Clear 08/03/2017 11:24 AM [facility] Specific [place] UA 1.010 1.001 - 1.030 08/03/2017 11:24 AM [facility] pH UA 5.0 5.0 - 8.0 08/03/2017 11:24 AM [facility] Protein UA Negative <=20 mg/dL 08/03/2017 11:24 AM [facility] Glucose UA Negative Negative mg/dL 08/03/2017 11:24 AM [facility] Ketone UA Negative Negative mg/dL 08/03/2017 11:24 AM [facility] Bilirubin UA Negative Negative mg/dL 08/03/2017 11:24 AM [facility] Blood UA Negative Negative 08/03/2017 11:24 AM [facility] Nitrite UA Negative Negative 08/03/2017 11:24 AM [facility] Leukocyte Esterase Negative Negative 08/03/2017 11:24 AM [facility] Urobilinogen UA <2.0 <2.0 mg/dL 8 11:24 AM [facility] RBC UA <1 0 - 8 /HPF 08/03/2017 11:24 AM [facility] WBC UA <1 0 - 2 /HPF 08/03/2017 11:24 AM [facility] Bacteria UA Rare Rare, Occasional, None /HPF 08/03/2017 11:24 AM [facility] Squamous Epithelial Cells UA 1 0 - 1 /HPF 08/03/2017 11:24 AM CDT [facility] Mucus UA Rare(A) None /LPF 08/03/2017 11:24 AM CDT [facility] Urine URINE SPECIMEN OBTAINED BY CLEAN CATCH PROCEDURE / Unknown Collection / Unknown 08/03/2017 10:43 AM CDT 08/03/2017 11:15 AM CDT Bebeto Braga MD LAB - URINALYSIS ORD HARSHAL Performing Organization Address [facility] Co de Phone Number [address] [phone] * DWYER (SM) ANTIBODY MARY (08/03/2017 10:43 AM CDT) Dwyer Antibody 5.1 0.0 - 19.9 Units 08/05/2017 10:36 AM CDT [facility] Comment: MARY Antibody Numeric Result Interpretation: <20.0 Units: Negative 20.0 - 39.0 Units: Weakly Positive >39.0 Units: Positive Blood BLOOD SPECIMEN / Unknown Lab Venipuncture / Unknown 08/03/2017 10:43 AM CDT 08/03/2017 11:20 AM CDT Bebeto Braga MD LAB - CHEMISTRY ARMANDO ROMO Performing Organization Address [facility] de Phone Number [address] [phone] * PLACEMENT SPECIALIST ANTIBODY (08/03/2017 10:43 AM CDT) SM/PLACEMENT SPECIALIST Antibody 3.0 0.0 - 19.9 Units 08/05/2017 10:36 AM CDT [facility] Comment: MARY Antibody Numeric Result Interpretation: <20.0 Units: Negative 20.0 - 39.0 Units: Weakly Positive >39.0 Units: Positive Blood BLOOD SPECIMEN / Unknown Lab Venipuncture / Unknown 08/03/2017 10:43 AM CDT 08/03/2017 11:20 AM CDT Bebeto Braga MD LAB - CHEMISTRY ARMANDO ROMO [address] [phone] * C-REACTIVE PROTEIN (08/03/2017 10:43 AM CDT) [facility] C-Reactive Protein <0.5 <=0.5 mg/dL 08/03/2017 11:39 AM CDT [facility] Blood BLOOD SPECIMEN / Unknown Lab Venipuncture / Unknown 08/03/2017 10:43 AM CDT 08/03/2017 11:15 AM CDT Bebeto Braga MD LAB - CHEMISTRY ARMANDO ROMO Performing Organization Address [facility]/ZIP Co de Phone Number [address] [phone] * (ABNORMAL) JAN BLOOD SCREEN W/REFLEX TITER (08/03/2017 10:43 AM CDT) [facility] JAN Positive(A ) 08/05/2017 5:11 PM CDT [facility] ([facility]) Comment: Negative <1:80 Borderline 1:80 Positive >1:80 Blood BLOOD SPECIMEN / Unknown Lab Venipuncture / Unknown 08/03/2017 10:43 AM CDT 08/03/2017 11:15 AM CDT Narrative [facility] ([facility]) - 08/05/2017 5:11 PM CDT Performed at: - [facility] [address] [place], [place] [id number] Class A Truck Driver: Carlos Alberto Mullins PhD, Phone: [phone] Bebeto Braga MD LAB - CHEMISTRY ARMANDO ROMO Performing Organization Address City/[facility]/ZIP Co de Phone Number [facility] ([facility]) [address] [place] [address] * (ABNORMAL) THYROID PEROXIDASE ANTIBODY (08/03/2017 10:43 AM CDT) [facility] Thyroid Peroxidase TPO Antibody 38(H) 0 - 34 IU/mL 08/04/2017 4:28 PM CDT [facility] ([facility]) Blood BLOOD SPECIMEN / Unknown Lab Venipuncture / Unknown 08/03/2017 10:43 AM CDT 08/03/2017 11:19 AM CDT [facility] ([facility]) - 08/04/2017 4:28 PM CDT Performed at: [address] [place] [id number] Class A Truck Driver: Carlos Alberto Mullins PhD, Phone: [phone] Bebeto Braga MD LAB - CHEMISTRY ARMANDO ROMO Performing Organization Address [facility] de Phone Number [facility] ([facility]) [address] [place] [phone] * THYROGLOBULIN ANTIBODY (08/03/2017 10:43 AM CDT) Thyroglobulin Antibody <1.0 0.0 - 0.9 IU/mL 08/04/2017 4:28 PM CDT [facility] ([facility]) Comment:Thyroglobulin Antibo dy measured by Easiaid Raymond Methodology Blood BLOOD SPECIMEN / Unknown Lab Venipuncture / Unknown 08/03/2017 10:43 AM CDT 08/03/2017 11:19 AM CDT [facility] ([facility]) - 08/04/2017 4:28 PM CDT Performed at: [address] [place] [id number] Class A Truck Driver: Carlos Alberto Mullins PhD, Phone: [phone] Bebeto Braga MD LAB - CHEMISTRY ARMANDO ROMO Performing Organization Address [facility] de Phone Number [facility] ([facility]) [address] [place] [phone] * HISTONE ANTIBODY (08/03/2017 10:43 AM CDT) Anti-Histone Antibody 0.7 0.0 - 0.9 Units 08/09/2017 12:18 PM CDT [facility]) Comment: Negative <1.0 Weak Positive 1.0 - 1.5 Moderate Positive 1.6 - 2.5 Strong Positive >2.5 Blood BLOOD SPECIMEN / Unknown Lab Venipuncture / Unknown 08/03/2017 10:43 AM CDT 08/03/2017 11:20 AM CDT Narrative [facility] ([facility]) - 08/09/2017 12:18 PM CDT Performed at: [address] [place] [id number] Class A Truck Driver: Betito Espino MD, Phone: [phone] Bebeto Braga MD LAB - CHEMISTRY ARMANDO ROMO Performing Organization Address City/[facility] Co de Phone Number [facility] ([facility]) [address] [place] [address] * COMPLEMENT TOTAL (08/03/2017 10:43 AM CDT) [facility] Complement Total CH50 50 42 - 60 U/mL 08/04/2017 3:22 PM CDT [facility] Blood BLOOD SPECIMEN / Unknown Lab Venipuncture / Unknown 08/03/2017 10:43 AM CDT 08/03/2017 11:14 AM CDT [facility] ([facility]) - 08/04/2017 3:22 PM CDT Performed at: [address] [place] [address] [address] [place], [place] [id number] Class A Truck Driver: Carlos Alberto Mullins PhD, Phone: [phone] Bebeto Braga MD LAB - CHEMISTRY ARMANDO ROMO Performing Organization Address [facility] de Phone Number [facility] ([facility]) [address] [place] [address] * SS-B (SJOGRENS'S) ANTIBODY (08/03/2017 10:43 AM CDT) [facility] SS-B LA Antibody 4.2 0.0 - 19.9 Units 08/05/2017 10:34 AM CDT [facility] Comment: MARY Antibody Numeric Result Interpretation: <20.0 Units: Negative 20.0 - 39.0 Units: Weakly Positive >39.0 Units: Positive Blood BLOOD SPECIMEN / Unknown Lab Venipuncture / Unknown 08/03/2017 10:43 AM CDT 08/03/2017 11:15 AM CDT Bebeto Braga MD LAB - CHEMISTRY ARMANDO ROMO [address] [phone] * SS-A (SJOGREN'S) ANTIBODY (08/03/2017 10:43 AM CDT) SS-A (Ro) Antibody 2.3 0.0 - 19.9 Units 08/05/2017 10:34 AM CDT [facility] Comment: MARY Antibody Numeric Result Interpretation: <20.0 Units: Negative 20.0 - 39.0 Units: Weakly Positive >39.0 Units: Positive Blood BLOOD SPECIMEN / Unknown Lab Venipuncture / Unknown 08/03/2017 10:43 AM CDT 08/03/2017 11:15 AM CDT Bebeto Braga MD LAB - CHEMISTRY ARMANDO ROMO [address] [phone] * SCLERODERMA 70 (SCL) ANTIBODY (08/03/2017 10:43 AM CDT) Pathologist [facility] SCL-70 Antibody 3.1 0.0 - 19.9 Units 08/05/2017 10:34 AM CDT [facility] Comment: MARY Antibody Numeric Result Interpretation: <20.0 Units: Negative 20.0 - 39.0 Units: Weakly Positive >39.0 Units: Positive Blood BLOOD SPECIMEN / Unknown Lab Venipuncture / Unknown 08/03/2017 10:43 AM CDT 08/03/2017 11:15 AM CDT Bebeto Braga MD LAB - CHEMISTRY ARMANDO ROMO [address] [phone] * ALDOLASE (08/03/2017 10:43 AM CDT) Aldolase 4.5 3.3 - 10.3 U/L 08/04/2017 3:22 PM CDT [facility] ([facility]) Blood BLOOD SPECIMEN / Unknown Lab Venipuncture / Unknown 08/03/2017 10:43 AM CDT 08/03/2017 11:16 AM CDT Narrative [facility] ([facility]) - 08/04/2017 3:22 PM CDT Performed at: 01 - [facility] [address] [place], [place] [id number] Class A Truck Driver: Carlos Alberto Mullins PhD, Phone: [phone] Bebeto Braga MD LAB - CHEMISTRY ARMANDO ROMO [facility] ([facility]) [address] [place] [address] * CULTURE URINE (08/03/2017 10:43 AM CDT) Pathologist [facility] Culture Urine No growth (<1,000 CFU/mL) AJ 08/04/2017 2:36 PM CDT [facility] Urine URINE SPECIMEN OBTAINED BY CLEAN CATCH PROCEDURE / Unknown Collection / Unknown 08/03/2017 10:43 AM CDT 08/03/2017 11:18 AM CDT Bebeto Braga MD LAB - MICROBIOLOGY O RDERABLES Performing Organization Address City/[facility]/ZIP Co de Phone Number [facility] [address] [place] [address] [phone] * ERYTHROCYTE SEDIMENTATION RATE (08/03/2017 10:43 AM CDT) Erythrocyte Sedimentation Rate Westergren 3 0 - 20 MM/HR 08/03/2017 11:34 AM CDT [facility] Blood BLOOD SPECIMEN / Unknown Lab Venipuncture / Unknown 08/03/2017 10:43 AM CDT 08/03/2017 11:15 AM CDT Bebeto Braga MD LAB - HEMATOLOGY ORD ERABLES [address] [phone] * COMPLEMENT C4 (08/03/2017 10:43 AM CDT) Pathologist [facility] Complement C4 25 15 - 57 mg/dL 08/03/2017 11:46 AM CDT [facility] Blood BLOOD SPECIMEN / Unknown Lab Venipuncture / Unknown 08/03/2017 10:43 AM CDT 08/03/2017 11:14 AM CDT Bebeto Braga MD LAB - SEROLOGY ORDER DEBBI [address] [phone] * LDH BLOOD (08/03/2017 10:43 AM CDT) [facility] LDH Total 127 125 - 243 Units/L 08/03/2017 11:51 AM CDT [facility] Blood BLOOD SPECIMEN / Unknown Lab Venipuncture / Unknown 08/03/2017 10:43 AM CDT 08/03/2017 11:18 AM CDT Bebeto Braga MD LAB - CHEMISTRY ORDAugusto ROMO [address] [phone] * CK BLOOD (08/03/2017 10:43 AM CDT) Pathologist [facility] CK Total 43 30 - 200 Units/L 08/03/2017 11:51 AM CDT [facility] Blood BLOOD SPECIMEN / Unknown Lab Venipuncture / Unknown 08/03/2017 10:43 AM CDT 08/03/2017 11:18 AM CDT Bebeto Braga MD LAB - [place] [address], [facility] [phone] * COMPLEMENT C3 (08/03/2017 10:43 AM CDT) Complement C3 124 82 - 193 mg/dL 08/03/2017 11:46 AM CDT [facility] Blood BLOOD SPECIMEN / Unknown Lab Venipuncture / Unknown 08/03/2017 10:43 AM CDT 08/03/2017 11:14 AM CDT Beebto Braga MD LAB - CHEMISTRY ARMANDO ROMO Performing Organization Address City/State/[facility] Co de Phone Number [address] [phone] Care Teams Liner Installer Relationship Specialty Start Date End Date Daisy Rubio MD [address] [place] [address] PCP - General Family Medicine 10/26/23
--- OUTSIDE RECORDS SUMMARY | 2024-06-28 09:46 | XMS_ITS | Clinical Summary ---
Author Organization [facility] Address [address] [place] [address] Care Team Providers Care Electronic Publisher Name Role Phone Daisy Rubio MD Primary Care Provider [phone] Source Comments [facility],non-owned Affiliates and Associated Physician Practices is amultiple site organization consisting of ambulatory clinics and hospital sitesin [place], [place], [place] and [place]. This disclosure is being madepursuant to the Care Everywhere program and may not contain all information available regarding this patient. Last updated 18.[facility] Allergies Active Allergy Reactions Criticality Noted Date Comments Levofloxacin Other 08/03/2017 Joint Pain Hydrocodone-Acetaminophen PERSONAL LINES ACCOUNT MANAGER Dysfunction 08/03 Could not move or [...] Active vitamin D, ergocalciferol, (Drisdol) 1.25 MG (82056 UT) capsule Take 1 (one) capsule by [...] Department Care Team Description 05/23/2024 8:00 AM SET AND EXHIBIT DESIGNER Office Visit [facility] [address] [facility], [address] [address] Karen Myers MD Chronic left [...] COMPREHENSIVE METABOLIC PANEL (10/26/2023 7:26 AM CDT) [facility] Glucose 92 70 - 105 mg/dL 10/26/2023 7:56 AM CDT [facility] Sodium 138 136 - 145 mmol/L 10/26/2023 7:56 AM CDT [facility] Potassium 4.0 3.5 - 5.1 mmol/L 10/26/2023 7:56 AM CDT [facility] Chloride 103 98 - 107 mmol/L 10/26/2023 7:56 AM CDT [facility] CO2 29 22 - 29 mmol/L 10/26/2023 7:56 AM CDT [facility] Calcium 9.6 8.4 - 10.4 mg/dL 10/26/2023 7:56 AM CDT [facility] Anion Gap 6 6 - 16 mmol/L 10/26/2023 7:56 AM CDT [facility] BUN 12 5.3 - 18.7 mg/dL 10/26/2023 7:56 AM CDT [facility] Creatinine 0.85 0.57 - 1.11 mg/dL 10/26/2023 7:56 AM CDT [facility] Alkaline Phosphatase 86 40 - 150 U/L 10/26/2023 7:56 AM CDT [facility] ALT 32 0 - 55 U/L 10/26/2023 7:56 AM CDT [facility] AST 28 5 - 34 U/L 10/26/2023 7:56 AM CDT [facility] Protein Total 7.1 6.4 - 8.3 gm/dL 10/26/2023 7:56 AM CDT [facility] Albumin 3.7 3.4 - 5.0 gm/dL 10/26/2023 7:56 AM CDT [facility] Bilirubin Total 0.2 0.2 - 1.2 mg/dL 10/26/2023 7:56 AM CDT [facility] eGFR by CKD-EPI 84(L) >=90 mL/min/1.7 3 m2 10/26/2023 7:56 AM CDT [facility] Blood BLOOD SPECIMEN / Unknown Venipuncture / Unknown 10/26/2023 7:26 AM CDT 10/26/2023 7:32 AM CDT Johanny Gan GLASS BULB SILVERER-HOMEBOUND TEACHER LAB - CHEMISTRY O RDERABLES [facility] [address] [place] [address] from Last 3 Months or Most Recently Relevant to Health Maintenance Care Teams Electronic Publisher Relationship Specialty Start Date End Date Daisy Rubio MD [address] [place], [place] [id number] PCP - General Family Medicine 10/26/23
--- OUTSIDE RECORDS SUMMARY | 2024-06-28 09:46 | XMS_ITS | CONTINUITY OF CARE DOCUMENT ---
Author Name sujey rm Address Unknown Organization [facility] Address [address] [facility] [address] [place] [address] Phone [phone] Care Team Providers Care B2B Sales Representative Name Role Phone Gene MACIAS, Carroll Unavailable CASEY MACIAS, DOMINIK Unavailable CASEY MACIAS, RUNDA Unavailable [phone] PROBLEMS Condition Status Date Provider Notes Palpitations active Brigitte Duong Health maintenance examination active Yuriy Mills MD Anxiety active Carroll Mills MD LVH active Carroll Mills MD Chest pain-type to be determined active Carroll Mills MD Dizziness;will mosley active Carroll Mills MD HTN essential active Carroll Mills MD Tobacco abuse active Carroll Mills MD Headache active Carroll Mills MD r/o Ischemia;neg nuc 15 active Carroll bonilla MD hx of Shortness of breath active Carroll soler MD Chest pain completed - Carroll Mills MD ENCOUNTERS Date Type Provider Location Encounter Diag nosis - In-person encounter Office Visit Carroll Mills MD [place] [facility] hx of Shortness of breathHealth maintenance examination - In-person encounter Office Visit Carroll Mills MD [place] [facility] Chest painr/o Ischemia;neg nuc 15HeadacheTobacco abuseHTN [...] Payer name Policy type / Coverage type [place] red green party ID [facility] [id number] TREATMENT PLAN Date Name Performer Cardiology Carroll [...] WITH T SH, 3RD GENERATION DLCO - 42997 FRC - 00917 FVC - 95523 HISTORY OF PROCEDURES Procedure Date Procedure Name Provider Procedure Notes S tatus SNOMED-CT: [id number] Current Medications Documented Carroll Mills MD completed Mobile Cardiac Telem etry - Tech Carroll Mills MD completed Mobile Cardiac Telem etry - Prof Carroll Mills MD completed BLOOD COUNT HEMOGLOBIN Carroll Mills MD completed FVC - 61852 Carroll Mills MD complet ed FR - 71329 Carroll Mills MD complet ed DLCO - 21951 Carroll Mills MD comple amie SNOMED-CT: [id number] 011916 Current Medications Documented Carroll Mills MD completed Stress EKG Torey Bermudez MD completed Cardiolite, 2 units Carroll Mills MD completed SPECT Images Barry Zhang MD compl eted
--- OUTSIDE RECORDS SUMMARY | 2024-06-28 09:46 | XMS_ITS | Referral Summary ---
Author Organization [facility] Address [address] [facility] [place] [address] Care Team Providers Care Collar Folder Operator Name Role Phone Daisy Rubio MD Primary Care Provider [phone] Source Comments [facility],non-owned Affiliates and Associated Physician Practices is amultiple site organization consisting of ambulatory clinics and hospital sitesin [place], [place], [place] and [place]. This disclosure is being madepursuant to the Care Everywhere program and may not contain all information available regarding this patient. Last updated 18.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 [address] [place] [phone] Karen Myers MD Chronic left shoulder pain (Primary Dx); S/P arthroscopy of left shoulder, capsular release; Adhesive capsulitis of left shoulder from Last 3 Months Allergies Active Allergy Reactions Criticality Noted Date Comments Levofloxacin Other 08/03/2017 Joint Pain Hydrocodone-Acetaminophen GEM SETTER Dysfunction 08/03 Could not move or talk [...] Active vitamin D, ergocalciferol, (Drisdol) 1.25 MG (34978 UT) capsule Take 1 (one) capsule by [...] COMPREHENSIVE METABOLIC PANEL (10/26/2023 7:26 AM CDT) [facility] Glucose 92 70 - 105 mg/dL 10/26/2023 7:56 AM CDT [facility] Sodium 138 136 - 145 mmol/L 10/26/2023 7:56 AM CDT [facility] Potassium 4.0 3.5 - 5.1 mmol/L 10/26/2023 7:56 AM CDT [facility] Chloride 103 98 - 107 mmol/L 10/26/2023 7:56 AM CDT [facility] CO2 29 22 - 29 mmol/L 10/26/2023 7:56 AM CDT [facility] Calcium 9.6 8.4 - 10.4 mg/dL 10/26/2023 7:56 AM CDT [facility] Anion Gap 6 6 - 16 mmol/L 10/26/2023 7:56 AM CDT [facility] BUN 12 5.3 - 18.7 mg/dL 10/26/2023 7:56 AM CDT [facility] Creatinine 0.85 0.57 - 1.11 mg/dL 10/26/2023 7:56 AM CDT [facility] Alkaline Phosphatase 86 40 - 150 U/L 10/26/2023 7:56 AM CDT [facility] ALT 32 0 - 55 U/L 10/26/2023 7:56 AM CDT [facility] AST 28 5 - 34 U/L 10/26/2023 7:56 AM CDT [facility] Protein Total 7.1 6.4 - 8.3 gm/dL 10/26/2023 7:56 AM CDT [facility] Albumin 3.7 3.4 - 5.0 gm/dL 10/26/2023 7:56 AM CDT [facility] Bilirubin Total 0.2 0.2 - 1.2 mg/dL 10/26/2023 7:56 AM CDT [facility] eGFR by CKD-EPI 84(L) >=90 mL/min/1.7 3 m2 10/26/2023 7:56 AM CDT [facility] Blood BLOOD SPECIMEN / Unknown Venipuncture / Unknown 10/26/2023 7:26 AM CDT 10/26/2023 7:32 AM CDT Johanny Gan CLAM GRADER-PROTECTION SPECIALIST LAB - CHEMISTRY O RDERABLES [facility] [address] [place] [address] from Last 3 Months or Most Recently Relevant to Health Maintenance Care Teams Collar Folder Operator Relationship Specialty Start Date End Date Daisy Rubio MD [address] [place] [address] PCP - General Family Medicine 10/26/23
== END 2024-06-28 09:04 | disposition home or self-care (01) ==
PROVIDERS: PCP Family Medicine; Visit Provider Student in an Organized Health Care Education/Training Program
DX: R00.2 Palpitations (principal)
CPT/HCPCS: 93242

== ENCOUNTER 2024-07-13 15:05 | Outpatient (CLI) | payer OTHER, SELFPAY ==
--- OUTSIDE RECORDS SUMMARY | 2024-07-13 15:10 | XMS_ITS | CONTINUITY OF CARE DOCUMENT ---
Author Name sujey rm Address Unknown Organization [facility] Address [address] [address] [place] [address] Phone [phone] Care Team Providers Care Cms Expert Name Role Phone Gene MACIAS, Carroll Unavailable CASEY MCAIAS, DOMINIK Unavailable [phone] CASYE MACIAS, RUNDA Unavailable PROBLEMS Condition Status Date [...] In-person encounter Office Visit Carroll Mills MD [place] [facility] hx of Shortness of breathHealth maintenance examination - In-person encounter Office Visit Carroll Mills MD [place] [facility] Chest painr/o Ischemia;neg nuc 15HeadacheTobacco abuseHTN [...] Nanette doran Crowe weight E&M 120 [lb_av] Yiesl Crowe blood pressure, diastolic 79 mm[Hg] Brock [...] Payer name Policy type / Coverage type [place] red democrat ID [facility] [id number] TREATMENT PLAN Date Name Performer Cardiology Carroll [...] WITH T SH, 3RD GENERATION DLCO - 18982 FRC - 07967 FVC - 45720 HISTORY OF PROCEDURES Procedure Date Procedure Name Provider Procedure Notes S tatus SNOMED-CT: [id number] Current Medications Documented Carroll Mills MD completed Mobile Cardiac Telem etry - Tech Carroll Mills MD completed Mobile Cardiac Telem etry - Prof Carroll Mills MD completed BLOOD COUNT HEMOGLOBIN Carroll Mills MD completed FVC - 93352 Carroll Mills MD complet ed FR - 70720 Carroll Mills MD complet ed DLCO - 18866 Carroll Mills MD comple amie SNOMED-CT: [id number] 877410 Current Medications Documented Carroll Mills MD completed Stress EKG Torey Bermudez MD completed Cardiolite, 2 units Carroll Mills MD completed SPECT Images Barry Zhang MD compl eted
--- OUTSIDE RECORDS SUMMARY | 2024-07-13 15:10 | XMS_ITS | Clinical Summary ---
Author Organization [facility] Address [address] [facility] [place] [address] Care Team Providers Care Wildlife Veterinarian Name Role Phone Daisy Rubio MD Primary Care Provider Source Comments [facility],non-owned Affiliates and Associated Physician Practices is amultiple site organization consisting of ambulatory clinics and hospital sitesin [place], [place], [place] and [place]. This disclosure is being madepursuant to the Care Everywhere program and may not contain all information available regarding this patient. Last updated 18.[facility] Allergies Active Allergy Reactions Criticality Noted Date Comments Levofloxacin Other 08/03/2017 Joint Pain Hydrocodone-Acetaminophen UNIT SECY Dysfunction 08/03 Could not move or talk [...] Active vitamin D, ergocalciferol, (Drisdol) 1.25 MG (07838 UT) capsule Take 1 (one) capsule by [...] Department Care Team Description 05/23/2024 8:00 AM FRAME STRAIGHTENER Office Visit [facility]oped[facility] [address] [facility], [address] [address] Karen Myers MD Chronic left [...] complete this topic MENINGOCOCCAL (Group B) VACCINE SHARED DECISION-MAKING Aged Out No longer eligible based on patient's age to complete this topic MENINGOCOCCAL GROUPS A/C/Y/W VACCINE Aged Out No longer eligible b ased on patient's age to complete this topic Procedures Procedure Name Priority Date/Time Associated Diagnosis Comments COMPREHENSIVE METABOLIC PANEL STAT 10/26/2023 7:26 AM CDT Pre-op evaluation from Last 3 Months or Most Recently Relevant to Health Maintenance Results * (ABNORMAL) COMPREHENSIVE METABOLIC PANEL (10/26/2023 7:26 AM CDT) [facility] Glucose 92 70 - 105 mg/dL 10/26/2023 7:56 AM CDT [facility] Sodium 138 136 - 145 mmol/L 10/26/2023 7:56 AM CDT [facility] Potassium 4.0 3.5 - 5.1 mmol/L 10/26/2023 7:56 AM CDT [facility] Chloride 103 98 - 107 mmol/L 10/26/2023 7:56 AM CDT [facility] CO2 29 22 - 29 [...] - 34 U/L 10/26/2023 7:56 AM CDT [facility] Protein Total 7.1 6.4 - 8.3 gm/dL 10/26/2023 7:56 AM CDT [facility] Albumin 3.7 3.4 - 5.0 gm/dL 10/26/2023 7:56 AM CDT [facility] Bilirubin Total 0.2 0.2 - 1.2 mg/dL 10/26/2023 7:56 AM CDT [facility] eGFR by CKD-EPI 84(L) >=90 mL/min/1.7 3 m2 10/26/2023 7:56 AM CDT [facility] Blood BLOOD SPECIMEN / Unknown Venipuncture / Unknown 10/26/2023 7:26 AM CDT 10/26/2023 7:32 AM CDT Johanny Gan CLERICAL SUPERVISOR-CORRECTIONAL FACILITY PSYCHIATRIST LAB - CHEMISTRY O RDERABLES [facility] [address] [place] [address] from Last 3 Months or Most Recently Relevant to Health Maintenance Care Teams Wildlife Veterinarian Relationship Specialty Start Date End Date Daisy Rubio MD [address] [place], [place] [id number] PCP - General Family Medicine 10/26/23
--- NOTE | 2024-07-13 15:11 | ECG_ITS ---
Test Date: 2024-07-13 15:21:07 Measurements Intervals [place] Rate: 65 P: 66 ME: 155 QRS: 69 QRSD: 91 T: 47 QT: 401 QTc: 417 Interpretive Statements SINUS RHYTHM No previous ECG available for comparison Electronically Signed On 07-13-2024 18:39:34 CDT by Saadia Suero M.D.
== END 2024-07-13 15:06 | disposition home or self-care (01) ==
PROVIDERS: PCP Family Medicine; Visit Provider Family Medicine
DX: R07.9 Chest pain, unspecified (principal); I10 Essential (primary) hypertension
CPT/HCPCS: 93005

== ENCOUNTER 2024-10-06 07:33 | Outpatient (CLI) | payer OTHER, SELFPAY ==
--- OUTSIDE RECORDS SUMMARY | 2024-10-06 07:37 | XMS_ITS | CONTINUITY OF CARE DOCUMENT ---
Author Name sujey rm Address Unknown Organization [facility] Address [address] [place] [address] Phone [phone] Care Team Providers Care Integrative Medicine Physician Name Role Phone Gene MACIAS, Carroll Unavailable [phone] CASEY MACIAS, DOMINIK Unavailable CASEY MACIAS, DOMINIK Unavailable PROBLEMS Condition Status Date Provider Notes [...] In-person encounter Office Visit Carroll Mills MD [place] Office hx of Shortness of breathHealth maintenance examination - In-person encounter Office Visit Carroll Mills MD [place] [facility] Chest painr/o Ischemia;neg nuc 15HeadacheTobacco abuseHTN [...] Payer name Policy type / Coverage type [place] red democrat ID [facility] [id number] TREATMENT PLAN Date Name Performer Cardiology Carroll [...] WITH T SH, 3RD GENERATION DLCO - 14136 FRC - 93796 FVC - 04673 HISTORY OF PROCEDURES Procedure Date Procedure Name Provider Procedure Notes S tatus SNOMED-CT: [id number] Current Medications Documented Carroll Mills MD completed Mobile Cardiac Telem etry - Tech Carroll Mills MD completed Mobile Cardiac Telem etry - Prof Carroll Mills MD completed BLOOD COUNT HEMOGLOBIN Carroll Mills MD completed FVC - 92791 Carroll Mills MD complet ed FR - 78426 Carroll Mills MD complet ed DLCO - 72431 Carroll Mills MD comple amie SNOMED-CT: [id number] 804860 Current Medications Documented Carroll Mills MD completed Stress EKG Torey Bermudez MD completed Cardiolite, 2 units Carroll Mills MD completed SPECT Images Barry Zhang MD compl eted
--- OUTSIDE RECORDS SUMMARY | 2024-10-06 07:37 | XMS_ITS | Clinical Summary ---
Author Organization [facility] Address [address] [facility] [place] [address] Care Team Providers Care Kelp Or Seagrass Gatherer Name Role Phone Daisy Rubio MD Primary Care Provider [phone] Source Comments [facility],non-owned Affiliates and Associated Physician Practices is amultiple site organization consisting of ambulatory clinics and hospital sitesin [place], [place] and [place]. This disclosure is being madepursuant to the Care Everywhere program and may not contain all information available regarding this patient. Last updated 18.[facility] Allergies Active Allergy Reactions Criticality Noted Date Comments Levofloxacin Other 08/03/2017 Joint Pain Hydrocodone-Acetaminophen CASH ANALYST Dysfunction 08/03 Could not move or talk Metoprolol Headache Low 04/24/2015 Tramadol Other 08/03/2017 Joint Pain Medications * Be aware that medications may not be up to date on this document. Alwaysverify current medications with the patient. ALPRAZolam (XANAX) 0.25 MG tablet Take 4 (four) tablets by mouth at bedtime 1 8 Active estradiol (ESTRACE) 2 MG tablet Take 0.5 (one-half) tablet by mouth once daily 1 8 Active LINZESS 72 MCG capsule Take 1 (one) capsule by mouth once daily as needed 4 8 Active acetaminophen (TYLENOL) 500 MG tablet Take 1 (one) tablet by mouth every 4 hours as needed for Fever or Pain Maximum allowable Acetaminophen amount = 4 Grams (4000 mg) / 24 hours. Active omeprazole (PriLOSEC) 40 MG capsule Take 1 (one) capsule by mouth once daily 4 Active levothyroxine (Synthroid) 75 MCG tablet Take 1 (one) tablet by mouth once daily 4 Active DULoxetine (Cymbalta) 60 MG capsule Take 1 (one) capsule by mouth at bedtime 4 Active cyclobenzaprin e (Flexeril) 5 MG tablet Take 1 (one) tablet to 2 (two) tablets by mouth at bedtime 4 Active ARIPiprazole (Abilify) 2 MG tablet Take 1 (one) tablet by mouth at bedtime 4 Active Humira, 2 Syringe, 40 MG/0.8ML injection Inject 0.8 mL subcutaneously every 7 days 4 Active diclofenac sodium EC (Voltaren) 75 MG tablet Take 1 (one) tablet by mouth 2 times daily Active Fexofenadine-P seudoephedrine (SHERYL-D 24 HOUR PO) Take 1 tablet by mouth once daily Active Vitamin D3, cholecalcifero l, 50 MCG (2000 UT) tablet Take 1 (one) tablet by mouth once daily Active multivitamin daily tablet Take 1 (one) tablet by mouth daily with food Active cyanocobalamin (Vitamin B-12) injection Inject 1,000 (one thousand) mcg into muscle every 30 days Active fluticasone-sa lmeterol hfa (Advair HFA) 230-21 MCG/ACT Inhale 2 (two) puffs by mouth once daily as needed (SOB) Active vitamin D, ergocalciferol , (Drisdol) 1.25 MG (31981 UT) capsule Take 1 (one) capsule by mouth every 7 days 6 capsule 4 Active losartan (Cozaar) 50 MG tablet Take 1 (one) tablet by mouth once daily 5 Active amLODIPine (Norvasc) 5 MG tablet Take 1 (one) tablet by mouth once daily 5 Active hydroCHLOROthi azide (Hydrodiuril) 25 MG tablet Take 1 (one) tablet by mouth once daily 5 Active Active Problems No known active problems [...] Recorded Patient Health Questionnaire-2 Score 2 05/23/2024 Comments No Sex and Gender Information Value Date Recorded Sex Assigned at Female 10/05/2023 4:21 PM CDT Legal Sex Female 5:51 AM SUPERVISOR WET END Gender Identity Not on file Sexual Orientation [...] 8:25 AM CDT Height 162.6 cm (5' 4) 12/05/2023 8:25 AM CDT Body Mass Index [...] SCREENING 1973 LIPID TESTING 1973 MAMMOGRAM 1973 HIV SCREENING 1988 HEPATITIS C SCREENING 12/22/1991 DTAP/TDAP/TD VACCINES (1 - Tdap) 1992 HEPATITIS B VACCINE (1 of 3 - 19+ 3-dose series) 1992 PAP SMEAR 1994 PAP with HPV 12/27/2003 COVID-19 VACCINE (1 - 2023-2 5 season) 2023 PNEUMOCOCCAL VACCINE 50+ (1 of 1 - PCV) 12/27/2023 ZOSTER VACCINE (1 of 2) 12/27/2023 INFLUENZA VACCINE (Season Ended) 2024 SCREENING FOR DIABETES 10/25/2026 , 08/03/2017 DEPRESSION [...] - 105 mg/dL 10/26/2023 7:56 AM CDT [facility] Sodium 138 136 - 145 mmol/L 10/26/2023 7:56 AM CDT [facility] Potassium 4.0 3.5 - 5.1 mmol/L 10/26/2023 7:56 AM CDT [facility] Chloride 103 98 - 107 mmol/L 10/26/2023 7:56 AM CDT [facility] CO2 29 22 - 29 mmol/L 10/26/2023 7:56 AM CDT [facility] Calcium 9.6 8.4 - 10.4 mg/dL 10/26/2023 7:56 AM CDT [facility] Anion Gap 6 6 - 16 mmol/L 10/26/2023 7:56 AM CDT [facility] BUN 12 5.3 - 18.7 mg/dL 10/26/2023 7:56 AM CDT [facility] Creatinine 0.85 0.57 - 1.11 mg/dL 10/26/2023 7:56 AM CDT [facility] Alkaline Phosphatase 86 40 - 150 U/L 10/26/2023 7:56 AM CDT [facility] ALT 32 0 - 55 U/L 10/26/2023 7:56 AM CDT [facility] AST 28 5 - 34 U/L 10/26/2023 7:56 AM CDT [facility] Protein Total 7.1 6.4 - 8.3 gm/dL 10/26/2023 7:56 AM CDT [facility] Albumin 3.7 3.4 - 5.0 gm/dL 10/26/2023 7:56 AM CDT [facility] Bilirubin Total 0.2 0.2 - 1.2 mg/dL 10/26/2023 7:56 AM CDT [facility] eGFR by CKD-EPI 84(L) >=90 mL/min/1.7 3 m2 10/26/2023 7:56 AM CDT [facility] Blood BLOOD SPECIMEN / Unknown Venipuncture / Unknown 10/26/2023 7:26 AM CDT 10/26/2023 7:32 AM CDT Johanny Gan DIRECTOR CARDIOLOGY-SPECIAL FORCES WEAPONS SERGEANT LAB - CHEMISTRY ORDERABLE S Final Result Performing Organization Address City/State/[facility] de Phone Number [facility] [address] [place] [address] from Last 3 Months or Most Recently Relevant to Health Maintenance Insurance [facility] Care Teams Kelp Or Seagrass Gatherer Relationship Specialty Start Date End Date Daisy Rubio MD [address] [place] [address] PCP - General Family Medicine 10/26/23
[2024-10-06 08:46] LABS: Free T4 Free Thyroxine 0.99 ng/dL (0.78-2.19); Vitamin D 25 Hydroxy 43.3 ng/mL
[2024-10-06 08:49] LABS: Alanine Aminotransferase 49 U/L (6-35); Albumin Level 4.3 g/dL (3.5-5.1); Alkaline Phosphatase 86 U/L (38-126); Anion Gap 9 mmol/L (4-12); Aspartate Amino Transferase 44 U/L (14-36); Bilirubin,Total 0.4 mg/dL (0.2-1.3); Blood Urea Nitrogen 18 mg/dL (7-17); Calcium 9.6 mg/dL (8.4-10.2); Carbon Dioxide 29 mmol/L (22-30); Chloride 99 mmol/L (98-107); Cholesterol 257 mg/dL (0-200); Estimated Glomerular Filt Rate > 60; Glucose 100 mg/dL (65-110); HDL Direct 56 mg/dL; Potassium 3.8 mmol/L (3.4-5.0); Sodium 137 mmol/L (137-145); Total Protein 7.5 g/dL (6.3-8.2); Triglycerides 374 mg/dL (<150)
[2024-10-06 08:59] LABS: LDL Cholesterol Direct 116 mg/dL
[2024-10-06 09:49] LABS: Hemoglobin A1C 5.6 % (<5.7)
== END 2024-10-06 07:34 | disposition home or self-care (01) ==
LOC: ANHLAB 07:34
PROVIDERS: PCP Family Medicine; Visit Provider Student in an Organized Health Care Education/Training Program
DX: E55.9 Vitamin D deficiency, unspecified (principal); I10 Essential (primary) hypertension; E78.5 Hyperlipidemia, unspecified; E03.9 Hypothyroidism, unspecified; R53.83 Other fatigue; Z13.1 Encounter for screening for diabetes mellitus; I47.10 Supraventricular tachycardia, unspecified
CPT/HCPCS: 36415; 80053; 80061; 82306; 83036; 84439; 84443

== ENCOUNTER 2024-12-06 07:31 | Outpatient (CLI) | payer OTHER, SELFPAY ==
--- NOTE | ~2024-12-06 | NM_ITS ---
EXAMINATION: NM winnie stress w perfusion DATE: 12/06/2024 10:13 INDICATION: Chest pain TECHNIQUE: Rest images were obtained following intravenous administration of 11.22 mCi Tc99m tetrofos min (Myoview). The patient was infused intravenously with Lexiscan (Regadenoson). Then, 34.7 mCi Tc99 m tetrofosmin (Myoview) was administered intravenously, and stress images were obtained. Data was rec onstructed into short axis and horizontal and vertical long axis SPECT images. Gated SPECT images wer e also obtained. COMPARISON: None. FINDINGS: There is no definite reversible or fixed perfusion abnormality to suggest ischemia or infar ction. There is normal left ventricular chamber size, wall motion and ejection fraction. Left ventr icular ejection fraction measures >70%. IMPRESSION: 1. Normal myocardial perfusion at rest and during stress. 2. Left ventricular ejection fraction measuring >70%. Reviewed, dictated and finalized at location A.
--- OUTSIDE RECORDS SUMMARY | 2024-12-06 07:35 | XMS_ITS | Clinical Summary ---
Author Organization [facility] Address [address] [place] [address] Care Team Providers Care Work Measurement Engineer Name Role Phone Daisy Rubio MD Primary Care Provider [phone] Source Comments [facility],non-owned Affiliates and Associated Physician Practices is amultiple site organization consisting of ambulatory clinics and hospital sitesin [place], [place], [place] and [place]. This disclosure is being madepursuant to the Care Everywhere program and may not contain all information available regarding this patient. Last updated 18.[facility] Allergies Active Allergy Reactions Criticality Noted Date Comments Levofloxacin Other 08/03/2017 Joint Pain Hydrocodone-Acetaminophen TYPE PHOTOGRAPHY SUPERVISOR Dysfunction 08/03 Could not move or talk [...] vitamin D, ergocalciferol , (Drisdol) 1.25 MG (90723 UT) capsule Take 1 (one) capsule by [...] PM CDT Legal Sex Female 5:51 AM INSPECTOR AND SORTER Gender Identity Not on file Sexual Orientation [...] 19+ 3-dose series) 1992 PAP SMEAR 1994 COVID-19 VACCINE (1 - 2023-2 5 season) 2023 PNEUMOCOCCAL VACCINE 50+ (1 of 1 - PCV) 12/27/2023 ZOSTER VACCINE (1 of 2) 12/27/2023 INFLUENZA VACCINE (#1) 2024 SCREENING FOR DIABETES 10/25/2026 , 08/03/2017 [...] - 105 mg/dL 10/26/2023 7:56 AM CDT [facility] Sodium 138 136 - 145 mmol/L 10/26/2023 7:56 AM CDT [facility] Potassium 4.0 3.5 - 5.1 mmol/L 10/26/2023 7:56 AM CDT [facility] Chloride 103 98 - 107 mmol/L 10/26/2023 7:56 AM CDT [facility] CO2 29 22 - 29 mmol/L 10/26/2023 7:56 AM CDT [facility] Calcium 9.6 8.4 - 10.4 mg/dL 10/26/2023 7:56 AM CDT [facility] Anion Gap 6 6 - 16 mmol/L 10/26/2023 7:56 AM CDT [facility] BUN 12 5.3 - 18.7 mg/dL 10/26/2023 7:56 AM CDT [facility] Creatinine 0.85 0.57 - 1.11 mg/dL 10/26/2023 7:56 AM CDT [facility] Alkaline Phosphatase 86 40 - 150 U/L 10/26/2023 7:56 AM CDT [facility] ALT 32 0 - 55 U/L 10/26/2023 7:56 AM CDT [facility] AST 28 5 - 34 U/L 10/26/2023 7:56 AM CDT [facility] Protein Total 7.1 6.4 - 8.3 gm/dL 10/26/2023 7:56 AM CDT [facility] Albumin 3.7 3.4 - 5.0 gm/dL 10/26/2023 7:56 AM CDT [facility] Bilirubin Total 0.2 0.2 - 1.2 mg/dL 10/26/2023 7:56 AM CDT [facility] eGFR by CKD-EPI 84(L) >=90 mL/min/1.7 3 m2 10/26/2023 7:56 AM CDT [facility] Blood BLOOD SPECIMEN / Unknown Venipuncture / Unknown 10/26/2023 7:26 AM CDT 10/26/2023 7:32 AM CDT Johanny Gan DRYWALL SANDER-ENVIRONMENTAL SERVICES MANAGER LAB - CHEMISTRY ORDERABLE S Final Result Performing Organization Address [facility]State/[facility] Co de Phone Number [facility] [address] [place] [address] from Last 3 Months or Most Recently Relevant to Health Maintenance Insurance [facility] Care Teams Work Measurement Engineer Relationship Specialty Start Date End Date Daisy Rubio MD [address] [place] [address] PCP - General Family Medicine 10/26/23
--- NOTE | 2024-12-06 07:54 | EST_ITS ---
Patient Info Name: Tri Merrill Age: 48 years : 1975 Gender: Female Ht: 64 in Wt: 182 lbs BSA: 1.96 m2 HR: 75 bpm BP: 119 / 89 mmHg Exam Date: 12/06/2024 7:54 AM Patient Status: O Admit Date: 12/06/2024 Exam Type: CA stress test treadmill w NM A nuclear stress test was performed. Staff Referring Physician: Taylor Herrera Attending Provider: Taylor Herrera Exercise Technologist: Ghazal Dooley Exercise Physician: Munir Carpenter DO Summary 1. 1. Negative Jas exercise stress test for ischemic ST changes by ECG criteria. 2. 2. Reduced functional capacity, achieving 6.5 METs of workload. 3. 3. Appropriate HR response to exercise. 4. 4. Appropriate HR recovery at 1 minute post exercise. 5. 5. Nuclear scan to follow and will be reported separately. Please correlate with it. 6. 6. Patient informed of the above results. Protocol: Jas Stress ECG Details Stage: REST Duration (min): 1 min : 7 sec Speed (mph): 0.0 Grade (%): 0 HR (bpm): 75 SBP (mmHg): 119 DBP (mmHg): 89 METS: --- Stage: REST Duration (min): 20 min : 17 sec Speed (mph): 0.0 Grade (%): 0 HR (bpm): 87 SBP (mmHg): 119 DBP (mmHg): 89 METS: --- Stage: STAGE 1 Duration (min): 1 min : 0 sec Speed (mph): 1.7 Grade (%): 10 HR (bpm): 118 SBP (mmHg): 119 DBP (mmHg): 89 METS: --- Stage: STAGE 1 Duration (min): 2 min : 0 sec Speed (mph): 1.7 Grade (%): 10 HR (bpm): 134 SBP (mmHg): 119 DBP (mmHg): 89 METS: --- Stage: STAGE 1 Duration (min): 3 min : 0 sec Speed (mph): 1.7 Grade (%): 10 HR (bpm): 147 SBP (mmHg): 168 DBP (mmHg): 101 METS: --- Stage: STAGE 2 Duration (min): 1 min : 0 sec Speed (mph): 2.5 Grade (%): 12 HR (bpm): 158 SBP (mmHg): 168 DBP (mmHg): 101 METS: --- Stage: STAGE 2 Duration (min): 1 min : 0 sec Speed (mph): 2.5 Grade (%): 12 HR (bpm): 156 SBP (mmHg): 168 DBP (mmHg): 101 METS: --- Stage: RECOVERY Duration (min): 0 min : 59 sec Speed (mph): 0.0 Grade (%): 0 HR (bpm): 123 SBP (mmHg): 192 DBP (mmHg): 101 METS: --- Stage: RECOVERY Duration (min): 1 min : 59 sec Speed (mph): 0.0 Grade (%): 0 HR (bpm): 108 SBP (mmHg): 192 DBP (mmHg): 101 METS: --- Stage: RECOVERY Duration (min): 2 min : 59 sec Speed (mph): 0.0 Grade (%): 0 HR (bpm): 100 SBP (mmHg): 140 DBP (mmHg): 82 METS: --- Stage: RECOVERY Duration (min): 3 min : 59 sec Speed (mph): 0.0 Grade (%): 0 HR (bpm): 94 SBP (mmHg): 140 DBP (mmHg): 82 METS: --- Stage: RECOVERY Duration (min): 4 min : 59 sec Speed (mph): 0.0 Grade (%): 0 HR (bpm): 90 SBP (mmHg): 126 DBP (mmHg): 83 METS: --- Stage: RECOVERY Duration (min): 5 min : 59 sec Speed (mph): 0.0 Grade (%): 0 HR (bpm): 86 SBP (mmHg): 126 DBP (mmHg): 83 METS: --- Stage: RECOVERY Duration (min): 6 min : 59 sec Speed (mph): 0.0 Grade (%): 0 HR (bpm): 88 SBP (mmHg): 113 DBP (mmHg): 82 METS: --- Stage: RECOVERY Duration (min): 7 min : 38 sec Speed (mph): 0.0 Grade (%): 0 HR (bpm): 87 SBP (mmHg): 113 DBP (mmHg): 82 METS: --- Rest HR: 87 bpm Peak HR: 158 bpm Rest Sys BP: 119 mmHg Peak Sys BP: 192 mmHg Max Pred HR: 170 bpm % Max Pred HR: 93 % Target HR: 145 bpm Max RPP: 30,336 bpm*mmHg Latham Score: -4 Termination Reason: Reached target heart rate or workload Cardiac Symptoms: Chest tightness, Shortness of breath Max ST Seg Deviation: -1.60 mm Total Time: 4 min : 0 sec Rest Sandoval BP: 89 mmHg Peak Sandoval BP: 101 mmHg Angina Score: None Total METS: 6.5 Resting ECG Sinus rhythm. Stress ECG Borderline ST-T wave abnormality in inferior leads. Arrhythmias None. Report Signatures
== END 2024-12-06 07:32 | disposition home or self-care (01) ==
PROVIDERS: PCP Family Medicine; Visit Provider Student in an Organized Health Care Education/Training Program
DX: R07.9 Chest pain, unspecified (principal); I10 Essential (primary) hypertension
CPT/HCPCS: 78452; 93017; A9502

== ENCOUNTER 2025-02-16 10:43 | Outpatient (CLI) | payer OTHER, SELFPAY ==
[2025-02-16 12:06] LABS: Free T4 Free Thyroxine 1.43 ng/dL (0.78-2.19)
[2025-02-16 12:20] LABS: Thyroid Stimulating Hormone 1.170 uIU/mL (0.465-4.680)
== END 2025-02-16 10:44 | disposition home or self-care (01) ==
LOC: ANHLAB 10:45
PROVIDERS: PCP Family Medicine; Visit Provider Internal Medicine
DX: E78.5 Hyperlipidemia, unspecified (principal); E03.9 Hypothyroidism, unspecified; I10 Essential (primary) hypertension; E07.9 Disorder of thyroid, unspecified; R63.5 Abnormal weight gain; Z68.31 Body mass index [BMI] 31.0-31.9, adult; Z79.890 Hormone replacement therapy; Z13.820 Encounter for screening for osteoporosis
CPT/HCPCS: 36415; 84439; 84443

== ENCOUNTER 2025-02-22 14:24 | Outpatient (CLI) | payer OTHER, SELFPAY ==
--- OUTSIDE RECORDS SUMMARY | 2025-02-22 14:29 | XMS_ITS | Clinical Summary ---
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 This disclosure is being madepursuant to the Care Everywhere program and may not contain all information available regarding this patient. 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 Always verify current medications with the patient. ALPRAZolam (XANAX) [...] vitamin D, ergocalciferol , (Drisdol) 1.25 MG (17567 UT) capsule Take 1 (one) capsule by [...] PM CDT Legal Sex Female 5:51 AM RN [facility] Gender Identity Not on file Sexual Orientation [...] of 3 - 19+ 3-dose series) 1992 PNEUMOCOCCAL VACCINE 50+ (1 of 1 - PCV) 12/27/2023 ZOSTER VACCINE (1 of 2) 12/27/2023 COVID-19 VACCINE (1 - 2023-2 5 season) 2024 INFLUENZA VACCINE (#1) 2024 SCREENING FOR DIABETES [...] - 105 mg/dL 10/26/2023 7:56 AM CDT [facility] Sodium 138 136 - 145 mmol/L 10/26/2023 7:56 AM CDT [facility] Potassium 4.0 3.5 - 5.1 mmol/L 10/26/2023 7:56 AM CDT [facility] Chloride 103 98 - 107 mmol/L 10/26/2023 7:56 AM CDT [facility] CO2 29 22 - 29 mmol/L 10/26/2023 7:56 AM CDT [facility] Calcium 9.6 8.4 - 10.4 mg/dL 10/26/2023 7:56 AM CDT [facility] Anion Gap 6 6 - 16 mmol/L 10/26/2023 7:56 AM CDT [facility] BUN 12 5.3 - [...] mL/min/1.7 3 m2 10/26/2023 7:56 AM CDT [facility] Blood BLOOD SPECIMEN / Unknown Venipuncture / Unknown 10/26/2023 7:26 AM CDT 10/26/2023 7:32 AM CDT Johanny Gan STATE GAME 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
[2025-02-22 15:22] LABS: Hematocrit 36.9 % (37.0-47.0); Hemoglobin 12.0 g/dL (12.0-15.0); Mean Corpuscular HGB Conc 32.5 g/dl (32-36); Mean Corpuscular Hemoglobin 27.4 pg (26-34); Mean Corpuscular Volume 84.2 fl (80-100); Platelet Count Result 292 k/mm3 (150-375); Red Blood Count 4.38 M/mm3 (4.2-5.4); White Blood Count 10.2 K/mm3 (4.5-10.0)
[2025-02-22 15:41] LABS: Alanine Aminotransferase 74 U/L (6-35); Albumin Level 4.7 g/dL (3.5-5.1); Alkaline Phosphatase 95 U/L (38-126); Anion Gap 9 mmol/L (4-12); Aspartate Amino Transferase 62 U/L (14-36); Bilirubin,Total 0.5 mg/dL (0.2-1.3); Blood Urea Nitrogen 19 mg/dL (7-17); Calcium 9.5 mg/dL (8.4-10.2); Carbon Dioxide 30 mmol/L (22-30); Chloride 98 mmol/L (98-107); Estimated Glomerular Filt Rate 58; Glucose 95 mg/dL (65-110); Potassium 3.0 mmol/L (3.4-5.0); Sodium 137 mmol/L (137-145); Total Protein 8.0 g/dL (6.3-8.2)
== END 2025-02-22 14:25 | disposition home or self-care (01) ==
PROVIDERS: PCP Internal Medicine; Visit Provider Nurse Practitioner Family
DX: R74.01 Elevation of levels of liver transaminase levels (principal)
CPT/HCPCS: 36415; 80048; 80076; 85027

== ENCOUNTER 2025-03-01 13:43 | Outpatient (CLI) | payer OTHER, SELFPAY ==
--- NOTE | ~2025-03-01 | MM_ITS ---
EXAMINATION: MM screening augusto BI w timothy HISTORY: Screening TECHNIQUE: Craniocaudal and mediolateral oblique 3-D tomosynthesis images were obtained and synthetic 2-D images were generated. CAD analysis was submitted and interpreted. COMPARISON: Comparison to multiple prior studies sequentially, with oldest reviewed study dated 02/11/2017. BREAST PARENCHYMAL COMPOSITION: There are scattered areas of fibroglandular density. FINDINGS: There is no evidence of suspicious mass, calcification, or architectural distortion to suggest malignancy in either breast. There has been no suspicious interval change. IMPRESSION: 1. No mammographic evidence of malignancy. 2. Recommend routine screening mammography in one year. BI-RADS Category 1: Negative Reviewed, dictated and finalized at location O. 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
--- OUTSIDE RECORDS SUMMARY | 2025-03-01 13:47 | XMS_ITS | Clinical Summary ---
Author Organization [facility] Address [address] [place] [address] Care Team Providers Care All Source Intelligence Name Role Phone Daisy Rubio MD Primary Care Provider [phone] Source Comments [facility],non-owned Affiliates and Associated Physician Practices is amultiple site organization consisting of ambulatory clinics and hospital sitesin [place], [place], [place] and [place]. This disclosure is being madepursuant to the Care Everywhere program and may not contain all information available regarding this patient. 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 Gender Identity Not on file Sexual Orientation [...] - 105 mg/dL 10/26/2023 7:56 AM CDT [facility] Sodium 138 136 - 145 mmol/L 10/26/2023 7:56 AM CDT [facility] Potassium 4.0 3.5 - 5.1 mmol/L 10/26/2023 7:56 AM CDT [facility] Chloride 103 98 - 107 mmol/L 10/26/2023 7:56 AM CDT [facility] CO2 29 22 - 29 mmol/L 10/26/2023 7:56 AM CDT [facility] Calcium 9.6 8.4 - 10.4 mg/dL 10/26/2023 7:56 AM CDT [facility] Anion Gap 6 6 - 16 mmol/L 10/26/2023 7:56 AM CDT [facility] BUN 12 5.3 - [...] mL/min/1.7 3 m2 10/26/2023 7:56 AM CDT [facility] Blood BLOOD SPECIMEN / Unknown Venipuncture / Unknown 10/26/2023 7:26 AM CDT 10/26/2023 7:32 AM CDT Johanny Gan PRIVACY ANALYST-KITCHEN AND BATH DESIGNER LAB - CHEMISTRY ORDERABLE S Final Result [facility] [address] [place] [address] from Last 3 Months or Most Recently Relevant to Health Maintenance Insurance [facility] Care Teams All Source Intelligence Relationship Specialty Start Date End Date Daisy Rubio MD [address] [place], [place] [id number] PCP - General Family Medicine 10/26/23
== END 2025-03-01 13:44 | disposition home or self-care (01) ==
LOC: ANHFOHIMG 13:45
PROVIDERS: PCP Family Medicine; Visit Provider Obstetrics & Gynecology
DX: Z12.31 Encounter for screening mammogram for malignant neoplasm of breast (principal)
CPT/HCPCS: 77063; 77067

== ENCOUNTER 2025-03-02 09:11 | Outpatient (CLI) | payer OTHER, SELFPAY ==
[2025-03-02 10:31] LABS: INR 0.9; Prothrombin Time 12.4 Seconds (11.1-14.7)
[2025-03-02 10:38] LABS: Iron 106 ug/dL (37-170)
[2025-03-02 10:55] LABS: Percent Iron Saturation 24 % (20-50)
[2025-03-02 11:12] LABS: Hepatitis B Surface Antigen Negative (Negative)
[2025-03-02 11:17] LABS: HAV RESULT Negative (Negative); Hepatitis B Core IgM Result Negative (Negative)
[2025-03-02 11:20] LABS: Ferritin 11.70 ng/mL (11.1-264)
[2025-03-03 07:08] LABS: GGT 48 IU/L (0-60)
[2025-03-05 07:09] LABS: ANA by IFA Rfx Titer/Pattern Positive (.)
== END 2025-03-02 09:12 | disposition home or self-care (01) ==
LOC: ANHLAB 09:12
PROVIDERS: PCP Family Medicine; Visit Provider Nurse Practitioner Family
DX: R74.01 Elevation of levels of liver transaminase levels (principal); K76.0 Fatty (change of) liver, not elsewhere classified; R10.12 Left upper quadrant pain
CPT/HCPCS: 36415; 80074; 82103; 82390; 82728; 82977; 83540; 83550; 85610; 86015; 86038; 86381

== ENCOUNTER 2025-03-08 07:00 | Outpatient (CLI) | payer OTHER, SELFPAY ==
--- NOTE | ~2025-03-08 | US_ITS ---
LIMITED ABDOMINAL ULTRASOUND INDICATION: R74.01 - Elevation of levels of liver transaminase levels COMPARISON: None. FINDINGS: Liver: Enlarged. The parenchyma is diffusely echogenic and attenuates the sound beam, most likely secondary to fatty infiltration. This limits evaluation for focal lesions. Common bile duct: Normal in size. Gallbladder: The gallbladder wall is normal in thickness. No stones or sludge were seen. Marquez's sign: Negative Pancreas: The imaged portions appear normal. Right kidney: Right kidney appears normal on the images provided. IMPRESSION: The liver is enlarged and the parenchyma is diffusely echogenic and attenuates the sound beam, most likely secondary to fatty infiltration. This limits evaluation for focal lesions. Reviewed, dictated and finalized at location A. SIZER IMPRESSION: The liver is enlarged and the parenchyma is diffusely echogenic and attenuates the sound beam, most likely secondary to fatty infiltration. This limits evalua tion for focal lesions.
== END 2025-03-08 07:01 | disposition home or self-care (01) ==
PROVIDERS: PCP Student in an Organized Health Care Education/Training Program; Visit Provider Nurse Practitioner Family
DX: R74.01 Elevation of levels of liver transaminase levels (principal)
CPT/HCPCS: 76705